=== PATIENT | female | born 1950 | race Caucasian/White ===

== ENCOUNTER 2019-05-02 12:11 | Inpatient (IN) | payer OTHER ==
[2019-05-02] MEDS ORDERED: MAGNE/ALUM HYDROXD 30 ML UCUP ONE (13:00)
[2019-05-02] MEDS ORDERED: LIDOCAINE VISCOUS 2% SOLN 15 ML UDC ONE (13:00)
--- NOTE | 2019-05-02 13:10 | RAD REPORT ---
EXAM DESCRIPTION: RAD - Chest Single View - 05/02/2019 1:02 pm CLINICAL HISTORY: CHEST PAIN Chest pain. COMPARISON: CHEST PA AND LAT 2 VIEW dated 04/20/2015; CHEST PA AND LAT 2 VIEW dated 05/01/2012; CHEST PA AND LAT 2 VIEW dated 01/20/2012; CHEST SINGLE VIEW dated 05/16/2011 FINDINGS: Portable technique limits examination quality. The lungs are grossly clear. The heart is normal in size. No displaced fractures. IMPRESSION: No acute intrathoracic process suspected.
[2019-05-02 13:14] LABS: Absolute Lymphocytes (CBC) 1.3 K/uL (0.7-4.9); Basophils % 0.5 % (0-1.3); Eosinophils % 2.7 % (0-4.4); Hematocrit 40.6 % (36.0-45.0); Lymphocytes % 21.4 % (15.3-44.8); MPV 9.4 fL (7.6-11.3); Monocytes % 7.7 % (3.3-12.3); RBC Red Blood Cell Count 4.57 M/uL (3.86-4.86)
[2019-05-02 13:29] LABS: ALT/SGPT 31 U/L (12-78); AST/SGOT 23 U/L (15-37); Albumin 3.8 g/dL (3.4-5.0); Alkaline Phosphatase 84 U/L (45-117); BUN Blood Urea Nitrogen 18 mg/dL (7-18); Bicarbonate 31 mmol/L (21-32); Bilirubin Direct 0.1 mg/dL (0-0.2); Bilirubin Total 0.4 mg/dL (0.2-1.0); Glucose Level 89 mg/dL (74-106); Lipase 126 U/L (73-393); Magnesium 2.2 mg/dL (1.8-2.4); NT PRO-BNP 53 pg/mL (<125); Potassium 4.1 mmol/L (3.5-5.1); Protein, Total 7.7 g/dL (6.4-8.2); Sodium Level 139 mmol/L (136-145); Troponin (Emerg Dept Use Only) < 0.02 ng/mL (0.0-0.045)
--- NOTE | 2019-05-02 14:08 | ER ---
Nurse's Notes [facility] Name: Dominga Gutierrez Age: 68 yrs Sex: Female : 1950 Arrival Date: 05/02/2019 Time: 12:13 Bed 18 Private MD: Zeus Thomas Diagnosis: Chest pain, unspecified Presentation: 05/02 12:15 Presenting complaint: Patient states: "I'm having some discomfort in my chest all the aj1 way to my back and it feels like someone is sitting on my chest." Reports that she has been having this pain for the past 3 weeks, but it got worse 3 days ago. Transition of care: patient was not received from another setting of care. Onset of symptoms was April 2019. Risk Assessment: Do you want to hurt yourself or someone else? Patient reports no desire to harm self or others. Initial Sepsis Screen: Does the patient meet any 2 criteria? No. Patient's initial sepsis screen is negative. Does the patient have a suspected source of infection? No. Patient's initial sepsis screen is negative. Care prior to arrival: None. 12:15 Method Of Arrival: Ambulatory aj1 12:15 Acuity: NATHAN 3 aj1 Triage Assessment: 12:20 General: Appears in no apparent distress. comfortable, Behavior is calm, cooperative, aj1 appropriate for age. Pain: Complains of pain in chest Pain currently is 6 out of 10 on a pain scale. Quality of pain is described as dull, heavy, pressure, Pain began 3 weeks ago. Neuro: Level of Consciousness is awake, alert, obeys commands. Cardiovascular: Reports chest pain, Patient's skin is warm and dry. Respiratory: Airway is patent Respiratory effort is even, unlabored, Respiratory pattern is regular, symmetrical. Historical: - Allergies: 12:20 Sulfa; aj1 12:20 Tape; aj1 - Home Meds: 12:20 Nexium 22.5 mg Oral cpDR once daily [Active]; magnesium oxide 500 mg Oral tab daily aj1 [Active]; carvedilol 3.125 mg Oral tab 2 times per day [Active]; losartan 50 mg Oral tab once daily [Active]; spironolacton-hydrochlorothiaz 25-25 mg Oral tab once daily [Active]; Claritin Oral once daily [Active]; aspirin 81 mg Oral chew once daily [Active]; meclizine 25 mg Oral tab 1 tab once daily [Active]; melatonin 3 mg Oral tab nightly [Active]; Vitamin D3 2,000 unit Oral tab daily [Active]; sertraline 50 mg oral tab 1 tab once daily [Active]; - PMHx: 12:20 GERD; Hypertension; Retinal detachment August 2015; aj1 - Immunization history:: Flu vaccine is up to date. - Social history:: Smoking status: Patient/guardian denies using tobacco. - Ebola Screening: : Patient denies travel to an Ebola-affected area in the 21 days before illness onset. - Family history:: not pertinent. - Hospitalizations: : No recent hospitalization is reported. Screenin:26 Abuse screen: Denies threats or abuse. Nutritional screening: No deficits noted. em Tuberculosis screening: No symptoms or risk factors identified. Fall Risk None identified. Assessment: 12:45 General: Appears in no apparent distress. comfortable, Behavior is calm, cooperative, em Denies fever. Pain: Complains of pain in chest Pain radiates to back Quality of pain is described as pressure. Pain: Complains of pain in chest Pain radiates to back Pain currently is 7 out of 10 on a pain scale. Quality of pain is described as pressure, Pain began 3 weeks. Neuro: Level of Consciousness is awake, alert, obeys commands, Oriented to person, place, time, situation. Cardiovascular: Reports chest pain, Denies palpitations, shortness of breath, vomiting, Capillary refill < 3 seconds Patient's skin is warm and dry. Rhythm is sinus rhythm. Respiratory: Airway is patent Respiratory effort is even, unlabored, Respiratory pattern is regular, symmetrical. GI: Patient currently denies nausea, vomiting. Derm: Skin is intact, is healthy with good turgor, Skin is pink, warm \\T\\ dry. Musculoskeletal: Capillary refill < 3 seconds, Range of motion: intact in all extremities. 13:00 Reassessment: The previous assessment is accurate, call light remains within reach. ss 13:33 Reassessment: Patient appears in no apparent distress at this time. Patient and/or em family updated on plan of care and expected duration. Pain level reassessed. Patient is alert, oriented x 3, equal unlabored respirations, skin warm/dry/pink. pain unchanged, reports pressure is still there, provider notified. 14:30 Reassessment: Patient appears in no apparent distress at this time. Patient and/or em family updated on plan of care and expected duration. Pain level reassessed. Patient is alert, oriented x 3, equal unlabored respirations, skin warm/dry/pink. 15:45 Reassessment: Patient appears in no apparent distress at this time. Patient and/or em family updated on plan of care and expected duration. Pain level reassessed. Patient is alert, oriented x 3, equal unlabored respirations, skin warm/dry/pink. Vital Signs: 12:20 BP 126 / 68; Pulse 60; Resp 16; Temp 97.7; Pulse Ox 100% on R/A; Weight 93.89 kg (R); aj1 Height 5 ft. 3 in. (160.02 cm) (R); 13:32 BP 122 / 66; Pulse 57; Resp 18; Pulse Ox 96% on R/A; Pain 7/10; em 14:30 BP 118 / 57; Pulse 58; Resp 18; Pulse Ox 99% on R/A; em 15:46 BP 134 / 67; Pulse 55; Resp 16; Pulse Ox 98% on R/A; Pain 6/10; em 12:20 Body Mass Index 36.67 (93.89 kg, 160.02 cm) aj1 ED Course: 12:13 Patient arrived in ED. ag5 12:14 Zeus Thomas DO is Private Physician. ag5 12:17 Triage completed. aj1 12:20 Arm band placed on Patient placed in an exam room. aj1 12:23 Juancho Samson MD is Attending Physician. rn 12:26 Carlos Alberto Hanson LVN is Primary Nurse. em 12:26 Patient has correct armband on for positive identification. Placed in gown. Bed in low em position. Call light in reach. warp changer on. Pulse ox on. NIBP on. 12:26 Patient maintains SpO2 saturation greater than 95% on room air. em 12:55 Initial lab(s) drawn, by me, sent to lab. Inserted saline lock: 22 gauge in right em antecubital area, using aseptic technique. Blood collected. 13:02 X-ray completed. Portable x-ray completed in exam room. kp1 13:03 XRAY Chest (1 view) In Process Unspecified. EDMS 14:07 Meg Jaramillo MD is Hospitalizing Provider. rn 15:55 No provider procedures requiring assistance completed. Patient admitted, IV remains in em place. Administered Medications: 13:00 Drug: GI Cocktail without - (Maalox Suspension 30 ml, Lidocaine Liquid 2 % 15 em ml) Route: PO; 13:33 Follow up: Response: No adverse reaction; Pain is unchanged, physician notified em 14:15 Drug: Aspirin Chewable Tablet 324 mg Route: PO; em 15:47 Follow up: Response: No adverse reaction em Outcome: 14:07 Decision to Hospitalize by Provider. rn 15:55 Admitted to Tele accompanied by tech, family with patient, via wheelchair, room 413, em with chart, Report called to GERMANIA Vargas 15:55 Condition: good 15:55 Instructed on the need for admit, Demonstrated understanding of instructions. 16:09 Patient left the ED. em Signatures: Dispatcher [employer] EDAysha Estes RN RN aj1 Carlos Alberto Hanson, FIRE MANAGEMENT TECHNICIAN FIRE MANAGEMENT TECHNICIAN em Juancho Samson MD MD rn Smirch, Shelby, RN RN ss Poole, Kathy kp1 Kimberly Day ag5 Corrections: (The following items were deleted from the chart) 14:27 13:33 Reassessment: Patient appears in no apparent distress at this time. Patient em and/or family updated on plan of care and expected duration. Pain level reassessed. Patient is alert, oriented x 3, equal unlabored respirations, skin warm/dry/pink. pain unchanged, reports pressure is still there em
--- NOTE | 2019-05-02 14:08 | EDPHYS ---
Physician Documentation [facility] Name: Dominga Gutierrez Age: 68 yrs Sex: Female : 1950 Arrival Date: 05/02/2019 Time: 12:13 Bed 18 Private MD: Zeus Thomas ED Physician Jauncho Samson HPI: 05/02 13:50 This 68 yrs old Female presents to ER via Ambulatory with complaints of Chest rn Pressure, Chest Discomfort. 13:50 The patient or guardian reports chest pain that is located primarily in the substernal rn area. Onset: 3 week(s) ago. The pain radiates to the scapula on both sides. Associated signs and symptoms: The patient has no apparent associated signs or symptoms, Pertinent negatives: cough, diaphoresis, dizziness, lower extremity swelling, lightheadedness, palpitations, shortness of breath, syncope, vomiting. The chest pain is described as dull. Duration: The patient or guardian reports multiple episodes, that are intermittent. Modifying factors: The symptoms are alleviated by nothing. the symptoms are aggravated by nothing. Severity of pain: At its worst the pain was moderate in the emergency department the pain is unchanged. The patient has not experienced similar symptoms in the past. Reports intermittent chest pain for 3 weeks, dull, radiates to shoulder blades, today constant for several hours, not any worse, no fever/chills/cough/sob/abd pain. Reports has been having a lot of acid reflux lately, is doubling her nexium and not helping. Not sure if related to each other. Reports had negative stress test [address] Lewis. NOt worse with exertion or breathing. No recent surgery or hx of dvt/pe.. Historical: - Allergies: 12:20 Sulfa; aj1 12:20 Tape; aj1 - Home Meds: 12:20 Nexium 22.5 mg Oral cpDR once daily [Active]; magnesium oxide 500 mg Oral tab daily aj1 [Active]; carvedilol 3.125 mg Oral tab 2 times per day [Active]; losartan 50 mg Oral tab once daily [Active]; spironolacton-hydrochlorothiaz 25-25 mg Oral tab once daily [Active]; Claritin Oral once daily [Active]; aspirin 81 mg Oral chew once daily [Active]; meclizine 25 mg Oral tab 1 tab once daily [Active]; melatonin 3 mg Oral tab nightly [Active]; Vitamin D3 2,000 unit Oral tab daily [Active]; sertraline 50 mg oral tab 1 tab once daily [Active]; - PMHx: 12:20 GERD; Hypertension; Retinal detachment August 2015; aj1 - Immunization history:: Flu vaccine is up to date. - Social history:: Smoking status: Patient/guardian denies using tobacco. - Ebola Screening: : Patient denies travel to an Ebola-affected area in the 21 days before illness onset. - Family history:: not pertinent. - Hospitalizations: : No recent hospitalization is reported. ROS: 13:50 Constitutional: Negative for fever, chills, and weight loss, Eyes: Negative for injury, rn pain, redness, and discharge, Neck: Negative for injury, pain, and swelling, Cardiovascular: + chest pain Respiratory: Negative for shortness of breath, cough, wheezing, and pleuritic chest pain, Abdomen/GI: Negative for abdominal pain, nausea, vomiting, diarrhea, and constipation, MS/Extremity: Negative for injury and deformity, Skin: Negative for injury, rash, and discoloration, Neuro: Negative for headache, weakness, numbness, tingling, and seizure. Exam: 13:50 Constitutional: This is a well developed, well nourished patient who is awake, alert, rn appears uncomfortable Head/Face: Normocephalic, atraumatic. Eyes: Pupils equal round and reactive to light, extra-ocular motions intact. Lids and lashes normal. Conjunctiva and sclera are non-icteric and not injected. Cornea within normal limits. Periorbital areas with no swelling, redness, or edema. Neck: Trachea midline, no thyromegaly or masses palpated, and no cervical lymphadenopathy. Supple, full range of motion without nuchal rigidity, or vertebral point tenderness. No Meningismus. Cardiovascular: Sheldon cardic, regular, no murmur Respiratory: Lungs have equal breath sounds bilaterally, clear to auscultation. No increased work of breathing, no retractions or nasal flaring. Abdomen/GI: Soft, non-tender, with normal bowel sounds. No distension or tympany. No guarding or rebound. MS/ Extremity: Pulses equal, no cyanosis. Neurovascular intact. Full, normal range of motion. Equal circumference. Neuro: Awake and alert, GCS 15, oriented to person, place, time, and situation. Cranial nerves II-XII grossly intact. Motor strength 5/5 in all extremities. Sensory grossly intact. Cerebellar exam normal. Vital Signs: 12:20 BP 126 / 68; Pulse 60; Resp 16; Temp 97.7; Pulse Ox 100% on R/A; Weight 93.89 kg (R); aj1 Height 5 ft. 3 in. (160.02 cm) (R); 13:32 BP 122 / 66; Pulse 57; Resp 18; Pulse Ox 96% on R/A; Pain 7/10; em 14:30 BP 118 / 57; Pulse 58; Resp 18; Pulse Ox 99% on R/A; em 15:46 BP 134 / 67; Pulse 55; Resp 16; Pulse Ox 98% on R/A; Pain 6/10; em 12:20 Body Mass Index 36.67 (93.89 kg, 160.02 cm) aj1 MDM: 12:23 Patient medically screened. rn 13:50 Differential diagnosis: acute myocardial infarction, acute pericarditis, anxiety, rn coronary artery disease chest wall pain, costochondritis, esophagitis, gastritis, gastroesophageal reflux disease (GERD), pancreatitis, peptic ulcer disease, pericarditis, pleurisy, pneumothorax. The patient was given aspirin in the Emergency Department. 14:02 Data reviewed: vital signs, nurses notes, lab test result(s), EKG, radiologic studies, rn plain films, and as a result, I will admit patient. Test interpretation: by ED physician or midlevel provider: plain radiologic studies, CXR negative for acute finding, no pneumothorax or infiltrate. Counseling: I had a detailed discussion with the patient and/or guardian regarding: the historical points, exam findings, and any diagnostic results supporting the discharge/admit diagnosis, lab results, radiology results. Special discussion:. ED course: Patient very uncomfortable when discussing discharge home. States that she needs to know what is going on, states the GI cocktail did not help and does not believe that this is GERD/esophagitis. No clear etiology of chest pain, and not normal ECG, has bifascicular block with mild wide QRS. Will admit for cardiac rule out and w/u. . 05/02 12:39 Order name: Basic Metabolic Panel; Complete Time: 13:39 rn 06/30 12:39 Order name: CBC with Diff; Complete Time: 13:21 rn 30 12:39 Order name: LFT's; Complete Time: 13:39 rn 05/02 12:39 Order name: Magnesium; Complete Time: 13:39 rn 30 12:39 Order name: NT PRO-BNP; Complete Time: 13:39 rn 30 12:39 Order name: Troponin (emerg Dept Use Only); Complete Time: 13:39 rn 05/02 12:39 Order name: XRAY Chest (1 view); Complete Time: 13:21 rn 05/02 12:39 Order name: EKG; Complete Time: 12:41 rn 05/02 12:39 Order name: Cardiac monitoring; Complete Time: 12:51 rn 05/02 12:39 Order name: EKG - Nurse/Tech; Complete Time: 12:51 rn 05/02 12:39 Order name: IV Saline Lock; Complete Time: 12:51 rn 05/02 12:39 Order name: Lipase; Complete Time: 13:39 rn 05/02 12:39 Order name: Labs collected and sent; Complete Time: 12:52 rn 05/02 12:39 Order name: O2 Per Protocol; Complete Time: 12:52 rn 05/02 12:39 Order name: O2 Sat Monitoring; Complete Time: 12:52 rn Administered Medications: 13:00 Drug: GI Cocktail without - (Maalox Suspension 30 ml, Lidocaine Liquid 2 % 15 em ml) Route: PO; 13:33 Follow up: Response: No adverse reaction; Pain is unchanged, physician notified em 14:15 Drug: Aspirin Chewable Tablet 324 mg Route: PO; em 15:47 Follow up: Response: No adverse reaction em Disposition: 05/02/19 14:07 Hospitalization ordered by Meg Jaramillo for Observation. Preliminary diagnosis is Chest pain, unspecified. - Bed requested for Telemetry/MedSurg (observation). - Status is Observation. em - Condition is Stable. - Problem is an ongoing problem. - Symptoms are unchanged. UTI on Admission? No Signatures: Dispatcher [employer] Aysha Joel RN RN aj1 Carlos Alberto Hanson, CERTIFIED PROCEDURAL CODER CERTIFIED PROCEDURAL CODER em Juancho Samson MD MD rn Tran, Leah lt1 Corrections: (The following items were deleted from the chart) 15:09 14:07 Hospitalization Ordered by Meg Jaramillo MD for Observation. Preliminary diagnosis lt1 is Chest pain, unspecified. Bed requested for Telemetry/MedSurg (observation). Status is Observation. Condition is Stable. Problem is an ongoing problem. Symptoms are unchanged. UTI on Admission? No. rn 16:09 15:09 05/02/2019 14:07 Hospitalization Ordered by Meg Jaramillo MD for Observation. em Preliminary diagnosis is Chest pain, unspecified. Bed requested for Telemetry/MedSurg (observation). Status is Observation. Condition is Stable. Problem is an ongoing problem. Symptoms are unchanged. UTI on Admission? No. lt1
[2019-05-02] MEDS ORDERED: ASPIRIN 81 MG CHEWABLE TABLET ONE (14:32)
[2019-05-02] MEDS ORDERED: MORPHINE 2 MG/ML SYR IV PRN (16:33)
[2019-05-02] MEDS ORDERED: NITROGLYCERIN 0.4 MG/TAB SL PRN (16:33)
[2019-05-02] MEDS ORDERED: ACETAMINOPHEN 500 MG TAB PO PRN (16:33)
[2019-05-02] MEDS: ENOXAPARIN 40 MG/0.4 ML SQ SCH (17:34)
[2019-05-02] MEDS ORDERED: ESOMEPRAZOLE MAG TRIHYDRATE 20 MG PO SCH (21:00)
[2019-05-02] MEDS ORDERED: MELATONIN 3 MG PO SCH (21:00)
[2019-05-02] MEDS ORDERED: CARVEDILOL 6.25 MG TAB PO SCH (21:00)
[2019-05-02] MEDS: CARVEDILOL 3.125 MG TAB PO SCH (21:04)
[2019-05-02] MEDS: ATORVASTATIN 40 MG TAB PO SCH (21:05)
[2019-05-02] MEDS: MELATONIN 3 MG TABLET PO SCH (21:05)
[2019-05-02] MEDS: PANTOPRAZOLE 40MG TABLET PO SCH (21:05)
--- NOTE | 2019-05-03 02:53 | HP ---
Date of Admission: 05/02/2019 Primary Care Physician: Dr. Guevara. Consultants: Dr. Stern with Cardiology. Chief Complaint: Chest pain. History Of Present Illness: The patient is a 68-year-old female with past medical history of hyperte nsion, obesity, major depressive disorder, gastroesophageal reflux disease, who was in her usual stat e of health until 3 weeks prior to admission. The patient has been having intermittent chest pain th at is reported as substernal radiating to the back associated with nausea but no vomiting, mild short ness of breath. No diaphoresis or palpitations. The patient otherwise denies any fevers, chills, co ugh, or sputum production. The patient also reports some gastroesophageal reflux disease symptoms, w hich were worse along the same time and she doubled her Nexium dose. The patient has had progressive ly worsening symptoms over the past couple of days; therefore, came into the ER for further evaluatio n. No alleviating factors. No aggravating factors either. Her initial workup showed normal cardiac enzymes. EKG did not show any acute changes. Chest x-ray was clear. The patient was referred for admission for further workup. When seen in the ER, she was awake, alert, oriented x3, complaining of heaviness in her chest. Past Medical History: Hypertension, obesity, gastroesophageal reflux disease, major depressive disor basilio. Surgical History: Hysterectomy, cholecystectomy, left ankle surgery, and EGD in 2014 which showed ga stritis. The patient also has had colonoscopy with multiple polyps removal. Allergies: TO TETANUS VACCINES AND TOXOID, SULFA, CIPRO, AND MEDIPORE TAPE. Medications: List reviewed. Social History: The patient denies any tobacco use. The patient does drink rarely. No illicit drug use. The patient is , independent in her activities of daily living. Family History: The patient reports heart disease that runs in the uncle. Review of Systems: Ten-point system reviewed and negative except as per HPI. Physical Examination: Vital Signs: Blood pressure 126/68, pulse 60, respirations 16, temperature 97.7, O2 100% on room air . BMI 36.6. General: Awake, alert, oriented x3 elderly, obese female, in some mild distress. HEENT: Normocephalic, atraumatic. PERRLA. EOMI. Moist mucous membranes. Oropharynx is clear. Co njunctivae anicteric. Neck: Supple. No JVD. Trachea midline. CV: S1, S2. Regular rate and rhythm. Peripheral pulses present. Respiratory: Moving air well bilaterally. No wheezing or stridor. No use of accessory muscles. Gastrointestinal: Abdomen is soft, nontender, nondistended. Positive bowel sounds. No guarding or rigidity. Extremities: No clubbing, cyanosis, or edema. No calf tenderness. Neuro: Cranial nerves 2 through 12 intact grossly. No focal neurological deficit. Speech is normal . Strength is 5/5 bilateral upper and lower extremities. Skin: No rashes. Normal skin turgor. Psych: Mood is somewhat anxious. Affect is congruent with mood. Insight and judgment are good. Laboratory Data: WBC 6.1, H and H 13.6 and 40.6, platelets 165, neutrophils 67%. Sodium 139, potass ium 4.1, chloride 103, CO2 31, BUN 18, creatinine 0.73, glucose 89, calcium 9.2, magnesium 2.2. Trop onin less than 0.02. Albumin 3.8. Imaging Studies: Chest x-ray personally reviewed, shows no acute intrathoracic process identified. Assessment And Plan: A 68-year-old female with: 1.Chest pain. We will start on chest pain guidelines. We will obtain echocardiogram, consult Cardi ology. The patient does have a HEART Score of 4. She has hypertension, obesity as well as age over 65. 2.Gastroesophageal reflux disease. We will continue Nexium. Recommend the patient to follow up wit h GI as outpatient. 3.Essential hypertension, stable. We will continue home medications. 4.Obesity. BMI of 38. Counseled. 5.Major depressive disorder, in remission. We will continue SSRI. 6.DVT prophylaxis with Lovenox. Plan: Admit patient to Med-Surg, [facility] as observation. /YEISON Voice ID: [id number]
[2019-05-03 06:13] LABS: Absolute Lymphocytes (CBC) 1.8 K/uL (0.7-4.9); Basophils % 0.5 % (0-1.3); Eosinophils % 3.1 % (0-4.4); Hematocrit 39.8 % (36.0-45.0); Lymphocytes % 34.5 % (15.3-44.8); MPV 9.2 fL (7.6-11.3); Monocytes % 8.8 % (3.3-12.3); RBC Red Blood Cell Count 4.43 M/uL (3.86-4.86)
[2019-05-03 06:20] LABS: BUN Blood Urea Nitrogen 16 mg/dL (7-18); Bicarbonate 32 mmol/L (21-32); Glucose Level 93 mg/dL (74-106); HDL Cholesterol 68 mg/dL (40-60); LDL Cholesterol, Calculated 109 (<130); Potassium 3.7 mmol/L (3.5-5.1); Sodium Level 141 mmol/L (136-145)
--- NOTE | 2019-05-03 06:38 | EKG ---
Test Date: 2019-05-02 Test Time: 12:32:32 Hand Ii Tube Bender: MEASUREMENT RESULTS: Intervals: Rate: 65 MA: 196 QRSD: 150 QT: 468 QTc: 486 [place]: P: 72 MA: 196 QRS: -56 T: 10 INTERPRETIVE STATEMENTS: Sinus rhythm with occasional premature ventricular complexes Right bundle branch block Left anterior fascicular block Bifascicular block Moderate voltage criteria for LVH, may be normal variant Cannot rule out Septal infarct, age undetermined Lateral infarct, age undetermined Abnormal ECG Compared to ECG 09/29/2016 02:52:47 Ventricular premature complex(es) now present Left ventricular hypertrophy now present Bifascicular block still present Myocardial infarct finding still present Electronically Signed On 05-03-19 06:36:29 CDT by Denny Stern
[2019-05-03] MEDS ORDERED: REGADENOSON 0.4 MG/5 ML SYR IV ONE (07:25)
[2019-05-03] MEDS ORDERED: HOME MED 1 EA UNK (Meclizine Hcl [Meclizine Hcl] 25 MG) PO SCH ×2 (09:00)
[2019-05-03] MEDS: CARVEDILOL 3.125 MG TAB PO SCH ×2 (09:00→21:53)
[2019-05-03] MEDS ORDERED: HOME MED 1 EA UNK (Spironolact/Hydrochlorothiazid [Spironolactone-Hctz 25-25 Tab] 1 TAB) PO SCH (09:00)
[2019-05-03] MEDS ORDERED: LOSARTAN POTASSIUM 50 MG TABLET PO SCH (09:00)
[2019-05-03] MEDS: SERTRALINE HCL 50 MG TAB PO SCH (09:40)
[2019-05-03] MEDS: ASPIRIN EC 81 MG TAB PO SCH (09:40)
[2019-05-03] MEDS: PANTOPRAZOLE 40MG TABLET PO SCH ×2 (09:40→16:00)
[2019-05-03] MEDS: MECLIZINE HCL 12.5 MG TAB PO SCH (09:41)
[2019-05-03] MEDS: DOCUSATE NA 100 MG CAP PO SCH (09:41)
[2019-05-03] MEDS: LOSARTAN POTASSIUM 50 MG TABLET PO SCH (09:41)
[2019-05-03] MEDS: SPIRONOLACTONE 25 MG TABLET PO SCH (09:41)
[2019-05-03] MEDS: hydroCHLOROthiazide 25 MG TAB PO SCH (09:42)
[2019-05-03] MEDS: ENOXAPARIN 40 MG/0.4 ML SQ SCH (09:42)
--- NOTE | 2019-05-03 12:22 | ECHO ---
HEIGHT: ft in WEIGHT: lb oz DATE OF STUDY: 05/03/[address]: Meg Jaramillo MD 2-DIMENSIONAL: YES M.MODE: YES DOPPLER: YES COLOR FLOW: YES TDS: PORTABLE: DEFINITY: BUBBLE STUDY: DIAGNOSIS: CHEST PAIN CARDIAC HISTORY: CATHERIZATION: NO SURGERY: NO PROSTHETIC VALVE: NO PACEMAKER: NO MEASUREMENTS (cm) DIASTOLIC (NORMALS) SYSTOLIC (NORMALS) IVSd 0.9 (0.6-1.2) LA Diam 2.8 (1.9-4.0) LVEF 52% LVIDd 4.1 (3.5-5.7) LVIDs 30. (2.0-3.5) %FS 26% LVPWd 1.0 (0.6-1.2) Ao Diam 2.5 (2.0-3.7) 2 DIMENSIONAL ASSESSMENT: RIGHT ATRIUM: NORMAL LEFT ATRIUM: NORMAL RIGHT VENTRICLE: NORMAL LEFT VENTRICLE: NORMAL TRICUSPID VALVE: NORMAL MITRAL VALVE: NORMAL PULMONIC VALVE: NORMAL AORTIC VALVE: NORMAL PERICARDIAL EFFUSION: NONE AORTIC ROOT: NORMAL LEFT VENTRICULAR WALL MOTION: NORMAL DOPPLER/COLOR FLOW: NORMAL COMMENTS: NORMAL 2-DIMENSIONAL ECHOCARDIOGRAM WITH DOPPLER. NO WALL MOTION ABNORMALITY. NO EFFUSION. TECHNOLOGIST: JOSÉ LUIS IVORY
--- NOTE | 2019-05-03 12:45 | RAD REPORT ---
EXAM DESCRIPTION: NM - Rest Stress Cardiac Imaging - 05/03/2019 12:37 pm CLINICAL HISTORY: Chest pain COMPARISON: None. TECHNIQUE: The patient was administered 10.7 mCi of Tc 99m Sestamibi prior to resting SPECT imaging of the heart. The patient was then administered 30.8 mCi of Tc 99m Sestamibi following exercise or ph armacologic stress. Multiplanar SPECT images were reviewed. FINDINGS: The end diastolic volume is 90 ml, the end systolic volume is 32 ml, and the ejection frac tion is 64 %. Stress imaging shows diminished activity in the anteroseptal wall near the apex not present on the re st sequencing. Moderate area diminished activity along the inferolateral wall near the apex does not change between rest and stress imaging. This is most likely diaphragm attenuation artifact. IMPRESSION: Small focus of stress ischemia anteroseptal wall near the apex. Fixed defect inferolateral wall is believed to be attenuation artifact from the diaphragm. Ejection fraction and end-diastolic volume normal range.
--- NOTE | 2019-05-03 15:54 | PN ---
Date of Progress Note: 05/03/2019 Subjective: The patient is seen and examined, chart reviewed, and case discussed with RN and Dr. Stern. The patient still has some pain, however, states it is improving. No shortness of breath. The patient tolerated stress test well. Medications: List reviewed. Objective: Vital Signs: Blood pressure 121/53, respirations 18, heart rate 57 , temperature 97.3, O2 95% on room air. General: Awake, alert, oriented x3, not in any acute distress. CV: S1, S2. Regular rate and rhythm. Peripheral pulses present. Respiratory: Moving air well bilaterally. No wheezing. Gastrointestinal: Abdomen is soft, nontender, nondistended. Positive bowel sounds. Extremities: No clubbing, cyanosis, or edema. Neurologic: Nonfocal. Laboratory Data: Sodium 141, potassium 3.7, chloride 105, CO2 32, BUN 16, creatinine 0.63, glucose 93, calcium 9.2, triglycerides 76, cholesterol 192, LDL 109, HDL 68. WBC 5.1, H and H 13.1 and 39.8, platelets 148, neutrophils 53% . Echocardiogram shows EF of 52%. Cardiac stress test shows small focus of stress ischemia, anteroseptal wall near the apex, fixed defect in inferior lateral wall believed to be attenuation artifact from the diaphragm. Assessment And Plan: A 68-year-old female with: 1. Chest pain. Stress test is positive. Does show some stress-induced ischemia near the apex. Cardiac enzymes were negative. Still having some chest discomfort. We will discuss further with Dr. Stern. The patient will likely need heart catheterization. 2. Gastroesophageal reflux disease. We will continue PPI. 3. Essential hypertension stable. 4. Obesity, BMI of 38. 5. Major depressive disorder, in remission. We will continue SSRI. 6. Bifasicular block 7. Deep vein thrombosis prophylaxis with Lovenox. Plan: Anticipate heart catheterization in a.m. /YEISON Voice ID: [id number] Report ID: [id number] DORINA
[2019-05-03 16:40] LABS: Urine Appearance CLEAR; Urine Bilirubin NEGATIVE (NEG); Urine Blood NEGATIVE (NEG); Urine Color YELLOW; Urine Glucose NEGATIVE (NEG); Urine Protein NEGATIVE (NEG); Urine Specific Gravity <=1.005 (1.005-1.030); Urine Urobilinogen 0.2 mg/dL (0.2-1.0); Urine pH 6.5 (5.0-7.0)
[2019-05-03 16:41] LABS: Urine Microscopic Reflex NO UMIC
[2019-05-03] MEDS: ATORVASTATIN 40 MG TAB PO SCH (21:49)
[2019-05-03] MEDS: MELATONIN 3 MG TABLET PO SCH (21:50)
--- NOTE | 2019-05-04 08:17 | TREADPHA ---
DX: CHEST PAIN Date of Study: 05/03/2019 Ht: 5 3 Wt: 207 lb oz Consulting Physician: ANDRA MEDICATIONS: TYLENOL, ASPIRIN, LIPITOR, LOVENOX, HYPDRODIURIL, COZAAR, ANTIVERT, MORPHINE, NITROSTAT, PROTONIX HISTORY: 68 YEAR OLD FEMALE WITH COMPLAINTS OF CHEST PAIN. HISTORY OF GERD, HYPERTENSION, RETINAL, DETACHMENT, NON SMOKER, NON DRINKER. PHYSICIAL EXAMINATION: RESTING B.P.: 134/65 RESTING H.R.: 61 RESTING EKG: SINUS RYHTHM, LEFT ANTERIOR FISCULAR BLOCK, RIGHT BUNDLE BRANCH BLOCK PROTOCOL: LEXISCAN EXERCISE TIME: 3:30 B.P. AT PEAK STRESS: 107/51 IMPRESSION: LEXISCAN INJECTED, FOLLOWED BY CARDIOLITE PER PROTOCOL. SEE NUCLEAR MEDICINE REPORT. NO SUPRAVENTRICULAR TACHYCARDIA, VENTRICULAR TACHYCARDIA, PREMATURE VENTRICULAR COMPLEXES OR PREMATURE ATRIAL COMPLEXES. PATIENT REPORTS NO CHEST PAIN.
[2019-05-04] MEDS: PANTOPRAZOLE 40MG TABLET PO SCH ×2 (08:32→16:33)
[2019-05-04] MEDS: MECLIZINE HCL 12.5 MG TAB PO SCH (08:33)
[2019-05-04] MEDS: SPIRONOLACTONE 25 MG TABLET PO SCH (08:33)
[2019-05-04] MEDS: ASPIRIN EC 81 MG TAB PO SCH (08:33)
[2019-05-04] MEDS: SERTRALINE HCL 50 MG TAB PO SCH (08:33)
[2019-05-04] MEDS: DOCUSATE NA 100 MG CAP PO SCH (08:34)
[2019-05-04] MEDS: LOSARTAN POTASSIUM 50 MG TABLET PO SCH (08:34)
[2019-05-04] MEDS: CARVEDILOL 3.125 MG TAB PO SCH ×2 (08:34→21:18)
[2019-05-04] MEDS: hydroCHLOROthiazide 25 MG TAB PO SCH (08:34)
[2019-05-04] MEDS ORDERED: MIDAZOLAM HCL 2 MG/2 ML INJ ONE ×3 (10:11→14:11)
[2019-05-04] MEDS ORDERED: FENTANYL CITR 100 MCG/2 ML ONE (13:32)
[2019-05-04] MEDS ORDERED: NA CHLORIDE 0.9% 500 ML ONE (13:32)
[2019-05-04] MEDS ORDERED: ATROPINE SULF 1 MG/10 ML SYR IV ONE (13:33)
[2019-05-04] MEDS ORDERED: NA CHLORIDE 0.9% 0 ML ONE (13:33)
--- NOTE | 2019-05-04 17:08 | P.PN ---
Subjective Date of Service: 05/04/19 Patient seen and examined at bedside. at bedside. Chart reviewed and case discussed with nursing staff. Continues to complain of chest discomfort Review of Systems 10-point ROS is otherwise unremarkable Physical Examination - Vital Signs Temperature: 97.8 F Blood Pressure: 101/57 Pulse: 62 Respirations: 16 Pulse Ox (%): 96 - Physical Exam General: Alert, In no apparent distress, Oriented x3 HEENT: Atraumatic, PERRLA, EOMI Neck: Supple, JVD not distended Respiratory: Clear to auscultation bilaterally, Normal air movement Cardiovascular: Regular rate/rhythm, Normal S1 S2 Gastrointestinal: Normal bowel sounds, No tenderness Musculoskeletal: No tenderness Integumentary: No rashes Neurological: Normal speech, Normal tone, Normal affect Lymphatics: No axilla or inguinal lymphadenopathy Assessment And Plan - Plan A 68-year-old female with: 1. Chest pain. Stress test is positive. Does show some stress-induced ischemia near the apex. Cardiac enzymes were negative. Still having some chest discomfort. Cardiology consulted.. Pending heart catheterization. 2. Gastroesophageal reflux disease. We will continue PPI. 3. Essential hypertension stable. 4. Obesity, BMI of 38. 5. Major depressive disorder, in remission. We will continue SSRI. 6. Bifasicular block 7. Deep vein thrombosis prophylaxis with Lovenox. Plan: Pending heart catheterization in a.m.
[2019-05-04] MEDS ORDERED: ACETAMINOPHEN 325 MG TABLET PO PRN (18:38)
[2019-05-04] MEDS ORDERED: NITROGLYCERIN 0.4 MG/TAB SL PRN (18:42)
--- NOTE | 2019-05-04 20:49 | OP ---
Date of Procedure: 05/04/2019 Surgeon: Denny Stern MD Parts Salesman: Clover Philip. Ms. Gutierrez was admitted to Dr. Jaramillo on 05/03/2019 with chest pain. Had a positive stress test and was scheduled for a heart catheterization today as an inpatient. She was brought to the filling station laborer on 05/04/2019, approximately at 1 p.m. She had 4 mg of Versed for IV sedation along with some fentanyl. 6-Urdu sheath introduced in the right common femoral artery fernandez ccessfully. Angio-Seal was used to close the case. Capri catheter was used to do the diagnostic c atheterization. She was found to have normal coronaries without any plaque buildup. There were no c omplications. Blood Loss: 5 cc. Anesthesia: Total conscious sedation was 30 minutes. Postoperative Diagnosis: Chest pain, positive stress test, normal coronaries. Plan: Plan is for medical therapy. The patient can be discharged today once it is okay with Dr. Bell sahu. CALISTA/YEISON Voice ID: [id number] Report ID: [id number]
[2019-05-04] MEDS: ATORVASTATIN 40 MG TAB PO SCH (21:19)
[2019-05-04] MEDS: MELATONIN 3 MG TABLET PO SCH (21:19)
--- NOTE | 2019-05-05 01:38 | CON ---
Date of Consultation: 05/03/[address] Jaramillo's service on 05/02/2019. I saw the patient on 05/03/2019. Reason For Consultation: Chest pain. History Of Present Illness: Ms. Gutierrez is 68. She has history of hypertension, retinal detachment, an d gastroesophageal reflux disease, came in with substernal chest pressure. No radiation, constant sy mptoms for about 48 hours. No nausea, vomiting. She did have some diaphoresis and shortness of john th. Denied PND, orthopnea, pedal edema, palpitations, or syncope. EKG showed bifascicular block. C hest x-ray was negative. Troponin was negative. Allergies: INCLUDE SULFA AND TETANUS. Review of Systems: Negative. Social History: Negative. Family History: Positive for heart disease. Medications: At home include Nexium, aspirin Coreg, Cozaar, Zoloft, and she takes Aldactone with hyd rochlorothiazide. Physical Examination: Vital Signs: Stable, was afebrile. HEENT: Negative. Neck: Supple without any lymphadenopathy, JVD, thyromegaly, or bruit. Chest: Clear to auscultation and percussion. Cardiac: Revealed a regular rhythm and rate without any murmurs, gallops, or rubs. Abdomen: Benign. Extremities: Revealed no clubbing, cyanosis, or edema. Diagnostic Data: Stated earlier. Impression And Plan: This is a patient who is 68, has history of hypertension, family history of hea rt disease, abnormal EKG, chest pain. I agree with the plan to get an echocardiogram and a Lexiscan, and we will see what those shows prior to final decisions. Her blood pressure is fairly well contro lled. We will continue her present regimen for now. The case was discussed with Dr. Jaramillo. CALISTA/YEISON Voice ID: [id number] Report ID: [id number]
[2019-05-05] MEDS: hydroCHLOROthiazide 25 MG TAB PO SCH (09:25)
[2019-05-05] MEDS: ASPIRIN EC 81 MG TAB PO SCH (09:25)
[2019-05-05] MEDS: SERTRALINE HCL 50 MG TAB PO SCH (09:25)
[2019-05-05] MEDS: SPIRONOLACTONE 25 MG TABLET PO SCH (09:25)
[2019-05-05] MEDS: DOCUSATE NA 100 MG CAP PO SCH (09:26)
[2019-05-05] MEDS: MECLIZINE HCL 12.5 MG TAB PO SCH (09:26)
[2019-05-05] MEDS: LOSARTAN POTASSIUM 50 MG TABLET PO SCH (09:26)
[2019-05-05] MEDS: CARVEDILOL 3.125 MG TAB PO SCH (09:26)
[2019-05-05] MEDS: PANTOPRAZOLE 40MG TABLET PO SCH (09:26)
--- NOTE | 2019-05-05 11:48 | P.DS ---
Admission Date: 05/03/19 Discharge Date: 05/05/19 Disposition: ROUTINE DISCHARGE Discharge Condition: GOOD Reason for Admission: Chest pain Consultations: Cardiology Procedures: 05/04/2019: Cardiac catheterization, no stent placement required. Brief History of Present Illness: The patient is a 68-year-old female with past medical history of hypertension, obesity, major depressive disorder, gastroesophageal reflux disease, who was in her usual state of health until 3 weeks prior to admission. The patient has been having intermittent chest pain that is reported as substernal radiating to the back associated with nausea but no vomiting, mild shortness of breath. No diaphoresis or palpitations. The patient otherwise denies any fevers, chills, cough, or sputum production. The patient also reports some gastroesophageal reflux disease symptoms, which were worse along the same time and she doubled her Nexium dose. The patient has had progressively worsening symptoms over the past couple of days; therefore, came into the ER for further evaluation. No alleviating factors. No aggravating factors either. Her initial workup showed normal cardiac enzymes. EKG did not show any acute changes. Chest x-ray was clear. The patient was referred for admission for further workup. When seen in the ER, she was awake, alert, oriented x3, complaining of heaviness in her chest. Hospital Course: Patient was admitted for chest pain. She was started on chest pain guidelines. Echocardiogram was obtained, Cardiology was consulted. Her HEART score was 4. The stress test was done, which was positive with stress-induced ischemia near the apex. She continued to have chest discomfort. She underwent a via catheterization, requiring no PCI /stent placement. She was started on a PPI for her gastroesophageal reflux disease. Her chest pain in symptoms improved/resolved. She was then cleared for discharge by cardiology. She otherwise remained stable throughout the stay. Her diagnoses and treatment plan explained to her. Lifestyle modifications were discussed with her. All questions were answered, she verbalized understanding. She was then discharged home a safe and stable manner. Just to follow up with her primary care physician in 2-3 days and a director of development and marketing in 2 weeks. She is already on a beta-toribio, aspirin and Plavix. Prescription for statin was sent prior to discharge. Vital Signs/Physical Exam: Temp Pulse Resp BP Pulse Ox 96.9 F 94 H 17 129/64 94 05/05/19 08:00 05/05/19 09:26 05/05/19 08:00 05/05/19 09:26 05/05/19 08:00 General: Alert, In no apparent distress, Oriented x3 HEENT: Atraumatic, PERRLA, EOMI Neck: Supple, JVD not distended Respiratory: Clear to auscultation bilaterally, Normal air movement Cardiovascular: Regular rate/rhythm, Normal S1 S2 Gastrointestinal: Normal bowel sounds, No tenderness Musculoskeletal: No tenderness Integumentary: No rashes Neurological: Normal speech, Normal tone, Normal affect Lymphatics: No axilla or inguinal lymphadenopathy Laboratory Data at Discharge: WBC 5.1 K/uL (4.3-10.9) D 05/03/19 05:30 Hgb 13.1 g/dL (12.0-15.0) 05/03/19 05:30 Hct 39.8 % (36.0-45.0) 05/03/19 05:30 Plt Count 148 K/uL (152-406) L 05/03/19 05:30 Sodium 141 mmol/L (136-145) 05/03/19 05:30 Potassium 3.7 mmol/L (3.5-5.1) 05/03/19 05:30 BUN 16 mg/dL (7-18) 05/03/19 05:30 Creatinine 0.63 mg/dL (0.55-1.3) 05/03/19 05:30 Glucose 93 mg/dL (74-106) 05/03/19 05:30 Magnesium 2.2 mg/dL (1.8-2.4) 05/02/19 12:55 Total Bilirubin 0.4 mg/dL (0.2-1.0) 05/02/19 12:55 AST 23 U/L (15-37) 05/02/19 12:55 ALT 31 U/L (12-78) 05/02/19 12:55 Alkaline Phosphatase 84 U/L (45-117) 05/02/19 12:55 Troponin I < 0.02 ng/mL (0.0-0.045) 05/03/19 05:30 Triglycerides 76 mg/dL (<150) 05/03/19 05:30 Cholesterol 192 mg/dL (<200) 05/03/19 05:30 HDL Cholesterol 68 mg/dL (40-60) H 05/03/19 05:30 Cholesterol/HDL Ratio 2.82 05/03/19 05:30 Lipase 126 U/L (73-393) 05/02/19 12:55 Home Medications: Aspirin [Mark Chewable Aspirin] 81 mg PO DAILY 05/02/19 Carvedilol [Coreg*] 3.125 mg PO BID 05/02/19 Cholecalciferol (Vitamin D3) [Vitamin D3] 2,000 unit PO DAILY 05/02/19 Docusate [Colace Cap*] 100 mg PO DAILY 05/02/19 Esomeprazole Mag Trihydrate [Nexium] 20 mg PO BID 05/02/19 Losartan Potassium [Cozaar*] 50 mg PO DAILY 05/02/19 Meclizine HCl 25 mg PO DAILY 05/02/19 Melatonin 3 mg PO BEDTIME 05/02/19 Sertraline [Zoloft*] 50 mg PO DAILY 05/02/19 Spironolact/Hydrochlorothiazid [Spironolactone-Hctz 25-25 Tab] 1 tab PO DAILY Atorvastatin Calcium [Lipitor] 40 mg PO BEDTIME #30 tab 05/05/19 Nitroglycerin [Nitrostat*] 0.4 mg SL UD PRN #10 tab 05/05/19 New Medications: RX: Atorvastatin Calcium [Lipitor] 40 mg PO BEDTIME #30 tab RX: Nitroglycerin [Nitrostat*] 0.4 mg SL UD PRN #10 tab PRN Reason: Pain Scale 2-4 (Mild) Patient Discharge Instructions: Please follow up with your primary care physician in 2-3 days. Please follow up with cardiology in 2 weeks. return to the Emergency room for worsening symptoms. Diet: AHA Activity: Ad kodi Followup: Denny Stern MD [ACTIVE - CAN ADMIT] - (call to schedule appointment) Zeus Thomas DO [Primary Care Provider] - (call to schedule appointment) Time spent managing pt's care (in minutes): 45
[2019-05-05 15:30] VITALS: BP 123/60; TEMP 97.6; O2SAT 97; BMI 36.6
== END 2019-05-05 12:32 | disposition home or self-care (01) | DRG 287 ==
LOC: ER 12:11 → ERHOLD 14:59 → 4TH 15:55 → OBSVTOIN 05-03 15:07
PROVIDERS: ADMIT Family Medicine; ATTEND Family Medicine
PROC: 4A023N7 Measurement of Cardiac Sampling and Pressure, Left Heart, Percutaneous Approach (ICD-10-PCS; principal; 2019-05-04)
PROC: B2111ZZ Fluoroscopy of Multiple Coronary Arteries using Low Osmolar Contrast (ICD-10-PCS; 2019-05-04)
DX: R07.9 Chest pain, unspecified (principal); I45.2 Bifascicular block; I10 Essential (primary) hypertension; E66.9 Obesity, unspecified; F32.5 Major depressive disorder, single episode, in full remission; K21.9 Gastro-esophageal reflux disease without esophagitis; Z68.36 Body mass index [BMI] 36.0-36.9, adult; Z88.1 Allergy status to other antibiotic agents; Z88.2 Allergy status to sulfonamides; Z88.7 Allergy status to serum and vaccine
CPT/HCPCS: 36415; 71045; 78452; 80048; 80061; 80076; 81003; 83690; 83735; 83880; 84484; 85025; 93005; 93017; 93306; 93454; 94760; 99285; A9500; C1760; C1893; G0378; J0583; J1650; J2250; J2270; J2785; J3010

== ENCOUNTER 2022-07-11 22:56 | Observation (INO) | payer OTHER ==
--- OUTSIDE RECORDS SUMMARY | 2022-07-11 22:59 | XMS REPORT | Continuity of Care Document ---
:1950 Author Organization [facility] t Address [address] [place] [address] Care Team Providers Name Role Phone MORRO CANDELARIA Primary Care Physician Unavailable Therapy, Adc Covid Infusion Attending Clinician Unavailable David Reaves MD Attending Clinician DAVID REAVES Attending Clinician Unavailable Ne Irving DO Attending Clinician Payers Payer Name Policy Type Policy Number Effective Date Expiration Date S ource Problems Condition Condition Condition Status Onset Resolution Last Treating Co mments Source Name Details Category Date Date Treatment Clinician Date No known No known Disease Unive rs active active ity of problems problems [facility] Allergies, Adverse Reactions, Alerts Allergy Allergy Status Severity Reaction(s) Onset Inactive Treating Comm ents Source Name Type Date Date Clinician NO KNOWN Drug Active Univers ALLERGIE Class ity of S [facility] Social History Social Habit Start Date Stop Date Quantity Comments Source Exposure to Yes [facility] SARS-CoV-2 (event) Medica l Branch Sex Assigned At [birth year] [facility] 00:00:00 00:00:00 [facility] Smoking Status Start Date Stop Date Source Unknown if ever smoked [facility] Medications Ordered Filled Start Stop Current Ordering Indication Dosage Frequency Signature Comments Components Source Medication Medication Date Date Medication? Clinician (SIG) Name Name casirivimab 2020-11- No [id number] 1200mg 1,200 mg, Univers -imdevimab 2-15 12-14 Subcutaneo it y of (REGEN-COV 00:00: 22:55 [place], ONCE, [place]EUA[place] 00 :00 1 dose, On Medical injection Tue Branch 1,200 mg 10/16/21 at 1800, Routine ondansetron 2020-11 4mg 4 mg, Univ ers (ZOFRAN-ODT 2-14 12-14 Oral, ity of ) 20:00: 19:02 ONCE, 1 [place] disintegrat 00 :00 dose, On Medi eddie ing tablet Tue Branch 4 mg 10/16/21 at 1400, Routine albuterol 2020-11 Yes [id number] 2{puff} Inhale 2 Univers 90 2-14 Puffs ity of mcg/actuati 00:00: every 4 [place] as on inhaler 00 (four) Medical hours as Branch needed for Wheezing or Shortness of Breath. benzonatate 2020-11 Yes [id number] 100mg Take 1 Univers 100 mg 2-14 capsule by ity of capsule 00:00: mouth 3 [place] 00 (three) Medical times Branch daily as needed for Cough. bromphenira 2020-11 Yes [id number] 5mL Take 5 mL Univers mine-pseudo 2-14 by mouth 4 it y of ephedrine-D 00:00: (four[place] (BROMFED 00 times Medical DM) 2-30-10 daily as Bran ch mg/5 mL needed for syrup Cold symptoms. ondansetron 2020-11 Yes [id number] 4mg Take 1 Univers (ZOFRAN 2-14 tablet by ity of ODT) 4 mg 00:00: mouth [place] disintegrat 00 every 8 Medic al ing tablet (eight) Branch hours as needed for Nausea and Vomiting (N/V). albuterol 2020-11 Yes [id number] 2{puff} Inhale 2 Univers 90 2-14 Puffs ity of mcg/actuati 00:00: every 4 [place] as on inhaler 00 (four) Medical hours as Branch needed for Wheezing or Shortness of Breath. benzonatate 2020-11 Yes [id number] 100mg Take 1 Univers 100 mg 2-14 capsule by ity of capsule 00:00: mouth 3 [place] 00 (three) Medical times Branch daily as needed for Cough. bromphenira 2020-11 Yes [id number] 5mL Take 5 mL Univers mine-pseudo 2-14 by mouth 4 it y of ephedrine-D 00:00: (four[place] (BROMFED 00 times Medical DM) 2-30-10 daily as Bran ch mg/5 mL needed for syrup Cold symptoms. ondansetron 2020-11 Yes [id number] 4mg Take 1 Univers (ZOFRAN 2-14 tablet by ity of ODT) 4 mg 00:00: mouth [place] disintegrat 00 every 8 Medic al ing tablet (eight) Branch hours as needed for Nausea and Vomiting (N/V). Vital Signs Vital Name Observation Time Observation Value Comments Source Systolic blood 2021-10-16 23:40:00 139 mm[Hg] Univer sity [facility] Diastolic blood 2021-10-16 23:40:00 69 [facility]Hg[facility] rate 2021-10-16 23:40:00 90 /min [facility] Body temperature 2021-10-16 23:40:00 36.72 [facility]isa [facility] Respiratory rate 2021-10-16 23:40:00 20 /min [facility] Oxygen saturation in 2021-10-16 23:40:00 94 /min [facility] Arterial blood by [facility] Pulse oximetry [place] Body height 2021-10-16 22:50:00 154.9 cm [facility] Body weight 2021-10-16 22:50:00 112.492 kg [facility] BMI 2021-10-16 22:50:00 46.86 kg/m2 [facility] Systolic blood 2021-10-16 17:09:00 150 mm[facility]Hg[facility] 2021-10-16 17:09:00 87 mm[Hg] [facility] Heart rate 2021-10-16 17:09:00 79 /min [facility] Body temperature 2021-10-16 17:09:00 36.94 [facility]ulisa [facility] Respiratory rate 2021-10-16 17:09:00 19 /min [facility] Body height 2021-10-16 17:09:00 154.9 cm [facility] Body weight 2021-10-16 17:09:00 112.492 kg [facility] BMI 2021-10-16 17:09:00 46.86 kg/m2 [facility] Oxygen saturation in 2021-10-16 17:09:00 95 /min [facility] Arterial blood by [facility] Pulse oximetry Branch Procedures This patient has no known procedures. Encounters Start End Encounter Admission Attending Care Care Encounter Source Date/Time Date/Time Type Type Clinicians Facility Department ID 2021-10-16 2021-10-16 Nurse Therapy, Adc Covid Infusion [facility] [id number] Univers 16:25:14 17:25:14 Visit David Reaves [id number] ity [facility] [id number] [facility] [id number] [facility] 053 Branch 2021-10-16 2021-10-16 Outpatient Roberto REAVES [facility] [id number] Univers 16:00:00 16:00:00 DAVID [facility] 2021-10-16 2021-10-16 Outpatient Roberto REAVES [facility] ERT [id number] Univers 16:00:00 16:00:00 DAVID [facility] 2021-10-16 2021-10-16 Emergency [facility] [id number] Univers 11:10:00 13:35:00 Ne MENDOSA [id number] ity [facility] [id number] [id number] [facility] 084 Branch Results This patient has no known results.
[2022-07-11 23:39] LABS: Absolute Lymphocytes (CBC) 1.8 K/uL (0.7-4.9); Hematocrit 37.9 % (36.0-45.0); Lymphocytes % 24.9 % (15.3-44.8); MCV 86.1 fL (80-100); MPV 8.6 fL (7.6-11.3); RBC Red Blood Cell Count 4.41 M/uL (3.86-4.86)
[2022-07-12 00:03] LABS: Potassium 3.8 mmol/L (3.5-5.1)
--- NOTE | 2022-07-12 00:35 | ER ---
Nurse's Notes [facility] Name: Dominga Gutierrez Age: 71 yrs Sex: Female : 1950 Arrival Date: 07/11/2022 Time: 22:59 Bed 15 Private MD: Diagnosis: Chest pain, unspecified Presentation: 07/11 23:17 Chief complaint: Patient states: she was sitting at home and felt like her blood bb pressure was getting higher 157/84 she took her carvedilol about 40 minutes ago to see if it would go down but it didn't and her arms are tingling. Coronavirus screen: At this time, the client does not indicate any symptoms associated with coronavirus-19. Ebola Screen: No symptoms or risks identified at this time. Initial Sepsis Screen: Does the patient meet any 2 criteria? No. Patient's initial sepsis screen is negative. Does the patient have a suspected source of infection? No. Patient's initial sepsis screen is negative. Risk Assessment: Do you want to hurt yourself or someone else? Patient reports no desire to harm self or others. Onset of symptoms was July 11, 2022. 23:17 Method Of Arrival: Ambulatory bb 23:17 Acuity: NATHAN 2 bb Historical: - Allergies: 23:20 Sulfa; bb 23:20 Tape; bb - Home Meds: 23:20 aspirin 81 mg Oral chew once daily [Active]; carvedilol 3.125 mg Oral tab 2 times per bb day [Active]; spironolacton-hydrochlorothiaz 25-25 mg Oral tab once daily [Active]; meclizine 25 mg Oral tab 1 tab once daily [Active]; Vitamin D3 2,000 unit Oral tab daily [Active]; Nexium 22.5 mg Oral cpDR once daily [Active]; Colace oral [Active]; melatonin 3 mg Oral tab nightly [Active]; AREDS [Active]; turmeric oral [Active]; sertraline 50 mg Oral tab 1 tab once daily [Active]; Xyzal oral [Active]; Vitamin C [Active]; - PMHx: 23:20 GERD; Hypertension; Retinal detachment August 2015; bb - Immunization history:: Client reports having NOT received the Covid vaccine. - Social history:: Smoking status: Patient denies any tobacco usage or history of. Screenin:51 Abuse screen: Denies threats or abuse. Nutritional screening: No deficits noted. ja4 Tuberculosis screening: No symptoms or risk factors identified. Fall Risk. Assessment: 23:48 General: Appears in no apparent distress. comfortable, Behavior is calm, cooperative, ld1 appropriate for age. Pain: Denies pain. Neuro: Level of Consciousness is awake, alert, obeys commands, Oriented to person, place, time, situation. Cardiovascular: Capillary refill < 3 seconds Patient's skin is warm and dry. Rhythm is sinus rhythm. Respiratory: Airway is patent Respiratory effort is even, unlabored. GI: Abdomen is round non-distended. : No signs and/or symptoms were reported regarding the genitourinary system. EENT: No signs and/or symptoms were reported regarding the EENT system. Derm: Reports tingling, in ALAN arms. Musculoskeletal: No signs and/or symptoms reported regarding the musculoskeletal system. 23:51 General: Appears in no apparent distress. Neuro: No deficits noted. Cardiovascular: ja4 Reports chest pain, TINGLING IN BOTH ARMS. Vital Signs: 23:17 BP 170 / 75; Pulse 70; Resp 16 S; Temp 98.5(O); Pulse Ox 98% on R/A; Weight 115.67 kg bb (R); Height 5 ft. 1 in. (154.94 cm) (R); Pain 5/10; 23:48 BP 135 / 51; Pulse 72; Resp 15; Pulse Ox 100% on R/A; ld1 07/12 01:20 BP 132 / 63; Pulse 72; Resp 13; Pulse Ox 96% on R/A; ja4 02:59 BP 139 / 63; Pulse 69; Resp 18; Pulse Ox 95% on R/A; ja4 07/11 23:17 Body Mass Index 48.18 (115.67 kg, 154.94 cm) bb ED Course: 07/11 22:59 Patient arrived in ED. bp1 23:06 Juancho Samson MD is Attending Physician. rn 23:17 [facility]C [facility] kb 23:20 Triage completed. bb 23:20 Arm band placed on Patient placed in an exam room, on a stretcher, on manager of tax, bb on pulse oximetry. Family accompanied patient. 23:32 Inserted saline lock: 20 gauge in left antecubital area, using aseptic technique. Blood ld1 collected. 23:34 Maurice Andrade, RN is Primary Nurse. [facility] 23:44 XRAY Chest (1 view) In Process Unspecified. EDRI 23:51 Call light in reach. Side rails up X 1. Side rails up X2. Adult w/ patient. ja 23:51 No provider procedures requiring assistance completed. [facility] 07/12 00:34 Jolie Moody MD is Hospitalizing Provider. kb 02:59 Report given to marjorie boyer. ja Administered Medications: No medications were administered Medication: 07/11 23:51 VIS not applicable for this client. [facility] Outcome: 07/12 00:35 Decision to Hospitalize by Provider. kb 01:20 Admitted to [facility] 03:53 Patient left the ED. [facility] Signatures: Dispatcher [employer] EDRI Roseline Marks, HARRY-C COMPLIANCE CONSULTANT-CkBonita Page RN RN Juancho Mc MD MD rn Paniauga, Brittany bp1 Dibbern, Lauren, RN RN ld1 Maurice Andrade, RN RN noemi
--- NOTE | 2022-07-12 00:35 | EDPHYS ---
Physician Documentation [facility] Name: Dominga Gutierrez Age: 71 yrs Sex: Female : 1950 Arrival Date: 07/11/2022 Time: 22:59 Bed 15 Private MD: ED Physician Juancho Samson HPI: 07/11 23:50 This 71 yrs old Female presents to ER via Ambulatory with complaints of Blood Pressure kb Problem, Tingling of arms. 23:50 The patient has elevated blood pressure and discovered this at home. Onset: The kb symptoms/episode began/occurred today, at 21:00. Associated signs and symptoms: Pertinent positives: chest pain, Pertinent negatives: dizziness, dyspnea, headache, lightheadedness, nausea, visual changes, vomiting, weakness. Severity of symptoms: At its worst the blood pressure was moderate. The patient has experienced similar episodes in the past. The patient has not recently seen a physician. Pt reports she was sitting down watching tv when she felt her blood pressure go up. States it kept going up so she took her night bp meds, but it didn't bring it down. States she was having some chest pressure as well so she came in.. Historical: - Allergies: 23:20 Sulfa; bb 23:20 Tape; bb - Home Meds: 23:20 aspirin 81 mg Oral chew once daily [Active]; carvedilol 3.125 mg Oral tab 2 times per bb day [Active]; spironolacton-hydrochlorothiaz 25-25 mg Oral tab once daily [Active]; meclizine 25 mg Oral tab 1 tab once daily [Active]; Vitamin D3 2,000 unit Oral tab daily [Active]; Nexium 22.5 mg Oral cpDR once daily [Active]; Colace oral [Active]; melatonin 3 mg Oral tab nightly [Active]; AREDS [Active]; turmeric oral [Active]; sertraline 50 mg Oral tab 1 tab once daily [Active]; Xyzal oral [Active]; Vitamin C [Active]; - PMHx: 23:20 GERD; Hypertension; Retinal detachment August 2015; bb - Immunization history:: Client reports having NOT received the Covid vaccine. - Social history:: Smoking status: Patient denies any tobacco usage or history of. ROS: 23:49 Constitutional: Negative for fever, chills, and weight loss. kb 23:49 Cardiovascular: Positive for chest pain, Negative for edema, orthopnea, palpitations, paroxysmal nocturnal dyspnea. 23:49 All other systems are negative. Exam: 23:49 Constitutional: This is a well developed, well nourished patient who is awake, alert, kb and in no acute distress. Head/Face: Normocephalic, atraumatic. ENT: Moist Mucous membranes Cardiovascular: Regular rate and rhythm with a normal S1 and S2. No gallops, murmurs, or rubs. No pulse deficits. Respiratory: Respirations even and unlabored. No increased work of breathing. Talking in full sentences Abdomen/GI: Soft, non-tender. No distention Skin: Warm, dry with normal turgor. Normal color. MS/ Extremity: Pulses equal, no cyanosis. Neurovascular intact. Full, normal range of motion. Neuro: Awake and alert, GCS 15, oriented to person, place, time, and situation. Moves all extremities. Normal gait. Psych: Awake, alert, with orientation to person, place and time. Behavior, mood, and affect are within normal limits. 07/12 00:17 ECG was reviewed by the Attending Physician. kb Vital Signs: 07/11 23:17 BP 170 / 75; Pulse 70; Resp 16 S; Temp 98.5(O); Pulse Ox 98% on R/A; Weight 115.67 kg bb (R); Height 5 ft. 1 in. (154.94 cm) (R); Pain 5/10; 23:48 BP 135 / 51; Pulse 72; Resp 15; Pulse Ox 100% on R/A; ld1 07/12 01:20 BP 132 / 63; Pulse 72; Resp 13; Pulse Ox 96% on R/A; ja4 02:59 BP 139 / 63; Pulse 69; Resp 18; Pulse Ox 95% on R/A; ja4 07/11 23:17 Body Mass Index 48.18 (115.67 kg, 154.94 cm) bb MDM: 07/11 23:06 Patient medically screened. rn 23:49 Data reviewed: vital signs, nurses notes. Data interpreted: Pulse oximetry: on room air kb is 98 %. Interpretation: normal. 07/12 00:34 Counseling: I had a detailed discussion with the patient and/or guardian regarding: the kb historical points, exam findings, and any diagnostic results supporting the discharge/admit diagnosis, lab results, radiology results, the need for further work-up and treatment in the hospital. Physician consultation: Lavinia ENGLISH was contacted at 00:34, regarding admission, to the telemetry unit. patient's condition, and will see patient in ED. 07/11 23:06 Order name: Basic Metabolic Panel; Complete Time: 00:06 rn 07/11 23:06 Order name: CBC with Diff; Complete Time: 23:49 rn 07/11 23:06 Order name: NT PRO-BNP; Complete Time: 00:06 rn 07/11 23:06 Order name: Troponin HS; Complete Time: 00:06 rn 07/11 23:06 Order name: XRAY Chest (1 view) rn 07/12 00:50 Order name: SARS RAPID; Complete Time: 01:33 kb 07/11 23:06 Order name: EKG; Complete Time: 23:08 rn 07/11 23:06 Order name: Cardiac monitoring; Complete Time: 23:48 rn 07/11 23:06 Order name: EKG - Nurse/Tech; Complete Time: 23:48 rn 07/11 23:06 Order name: IV Saline Lock; Complete Time: 23:31 rn 07/11 23:06 Order name: Labs collected and sent; Complete Time: 23:32 rn 07/11 23:06 Order name: O2 Per Protocol; Complete Time: 23:48 rn 07/11 23:06 Order name: O2 Sat Monitoring; Complete Time: 23:48 rn EC:17 Rate is 71 beats/min. Rhythm is regular. QRS [place] is Normal. ND interval is prolonged kb at 210 msec. QRS interval is normal at 154 msec. QT interval is prolonged at 502 msec. Administered Medications: No medications were administered Disposition: 05:03 Co-signature as Attending Physician, Juancho Samson MD. rn Disposition Summary: 07/12/22 00:35 Hospitalization Ordered Hospitalization Status: Observation kb Provider: Jolie Moody Location: Telemetry/MedSurg (observation) kb Condition: Stable kb Problem: new kb Symptoms: are unchanged kb Bed/Room Type: Standard Room Assignment: 418(07/12/22 02:30) Diagnosis - Chest pain, unspecified kb Forms: - Medication Reconciliation Form kb - SBAR form kb Signatures: Dispatcher [employer] Roseline Johnson, COIL MACHINE OPERATOR-C COIL MACHINE OPERATOR-Gisele Alejandro RN RN Bonita Lao RN RN bb Juancho Samson MD MD chief crna: (The following items were deleted from the chart) 02:30 00:35 kb mw
[2022-07-12 01:20] LABS: SARS-CoV-2 Antigen Rapid Res Positive (Negative)
--- NOTE | 2022-07-12 01:24 | P.HP ---
Certification for Inpatient Patient admitted to: Observation With expected LOS: <2 Midnights Patient will require the following post-hospital care: None Practitioner: I am a practitioner with admitting privileges, knowledge of patient current condition, hospital course, and medical plan of care. Services: Services provided to patient in accordance with Admission requirements found in Title 42 Section 412.3 of the Code of Federal Regulations Patient History Date of Service: 07/12/22 Primary Care Provider: Lopez Reason for admission: Chest Pain History of Present Illness: Patient is a 71-year-old female with history of hypertension and GERD who presented to the ED with complaints of chest pain that radiates to her arms bila terally. Patient reports that she has been in the ER with her all day as he has pneumonia. She was finally at home relaxing when she "started to feel her blood pressure rise" it was noted to be 157 systolic so she took her carvedilol and 81 mg aspirin. She later started experiencing chest pain and numbness and tingling in both of her arms. BP was 170/75 upon arrival to the ED. Labs within normal limits, including troponin. Upon my assessment, patient reports that her chest pain is resolved, she is just complaining of a headache. She is incidentally COVID-positive. ED provider wishes to have patient for observation. Allergies Tetanus Vaccines and Toxoid [Tetanus] Allergy (Mild, Verified 05/02/19 16:43) Rash Sulfa (Sulfonamide Antibiotics) [Sulfa(Sulfonamide Antibiotics)] Allergy (Unknown, Verified 05/02/19 16:43) Shortness of breath ciprofloxacin Allergy (Verified 05/02/19 16:43) Shortness of breath Medipore tape Adverse Reaction (Uncoded 05/02/19 16:43) Itching/Hives/Rash Home medications list reviewed: Yes Home Medications: Aspirin [Mark Chewable Aspirin] 81 mg PO DAILY 05/02/19 Cholecalciferol (Vitamin D3) [Vitamin D3] 2,000 unit PO DAILY 05/02/19 Docusate [Colace Cap*] 100 mg PO DAILY 05/02/19 Esomeprazole Mag Trihydrate [Nexium] 20 mg PO BID 05/02/19 Losartan Potassium [Cozaar*] 50 mg PO DAILY 05/02/19 Meclizine HCl 25 mg PO DAILY 05/02/19 Melatonin 3 mg PO BEDTIME 05/02/19 Sertraline [Zoloft*] 50 mg PO DAILY 05/02/19 Spironolact/Hydrochlorothiazid [Spironolactone-Hctz 25-25 Tab] 1 tab PO DAILY 05/02/19 carvediloL [Coreg*] 3.125 mg PO BID 05/02/19 Atorvastatin Calcium [Lipitor] 40 mg PO BEDTIME #30 tab 05/05/19 Nitroglycerin [Nitrostat*] 0.4 mg SL UD PRN #10 tab 05/05/19 - Past Medical/Surgical History Diabetic: No -: HTN -: Cholecystectomy -: Hysterectomy -: L knee repair -: Appendectomy -: R ankle repair -: sinus surg. Psychosocial/ Personal History: Patient lives at home with her . - Family History Father -: Heart disease, Cancer Notes: from colon cancer - Social History Smoking Status: Never smoker Alcohol use: Yes CD- Drugs: No Caffeine use: Yes Place of Residence: Home Review of Systems Cardiovascular: Chest Pain, Other (Bilateral arm tingling) Physical Examination - Physical Exam General: Alert, In no apparent distress HEENT: Atraumatic, PERRLA, EOMI, Sclerae nonicteric Neck: Supple, 2+ carotid pulse no bruit, No LAD, Without JVD or thyroid abnormality Respiratory: Clear to auscultation bilaterally, Normal air movement Cardiovascular: Regular rate/rhythm, Normal S1 S2 Gastrointestinal: Normal bowel sounds, No tenderness Musculoskeletal: No tenderness Integumentary: No rashes Neurological: Normal speech, Normal strength at 5/5 x4 extr, Normal tone, Normal affect - Studies Laboratory Data (last 24 hrs) 07/11/22 23:30: WBC 7.30, Hgb 12.8, Hct 37.9, Plt Count 175 07/11/22 23:30: Sodium 141, Potassium 3.8, BUN 14, Creatinine 0.81, Glucose 112 H Assessment and Plan - Problems (Diagnosis) (1) Chest pain Current Visit: Yes Status: Acute Qualifiers: Chest pain type: unspecified Qualified Code(s): R07.9 - Chest pain, uns pecified (2) Hypertension Current Visit: Yes Status: Chronic Qualifiers: Hypertension type: primary hypertension Qualified Code(s): I10 - Essential (primary) hypertension (3) COVID-19 Current Visit: Yes Status: Acute - Plan -Initial troponin negative. Trend q6hx2 -Monitor on telemetry. Patient states that she has a "irregular heartbeat" EKG showed bifasicular block. -Cardiology consulted. Patient sees Dr. Lewis outpatient. She had cardiac cath here 3 years ago that did not require stent. -Droplet precautions. Vitamin C and zinc daily -Lipid panel and TSH in the morning -Aspirin -Monitor and replete electrolytes per protocol -Reconcile and continue home medications -Lovenox for VTE ppx -Full code Discharge Plan: Home Plan to discharge in: 24 Hours - Advance Directives Does patient have a Living Will: No Does patient have a Durable POA for Healthcare: No - Code Status/Comfort Care Code Status Assessed: Yes (Full) Critical Care: No Time Spent Managing Pts Care (In Minutes): 50
[2022-07-12] MEDS ORDERED: HYDROCODONE/APAP 5/325 MG TAB PO PRN (01:44)
[2022-07-12] MEDS ORDERED: ACETAMINOPHEN 500 MG TAB PO PRN (01:44)
[2022-07-12] MEDS ORDERED: ONDANSETRON 4 MG/2 ML VIAL IV PRN (01:44)
[2022-07-12] MEDS ORDERED: HYDROCODONE/APAP 5/325 MG TAB ONE (02:27)
[2022-07-12 04:20] VITALS: BMI 48.2
[2022-07-12 06:16] LABS: Thyroid Stimulating Hormone 2.32 uIU/mL (0.360-3.740); Troponin High Sensitivity 7.3 pg/mL (<58.9)
[2022-07-12 08:32] VITALS: TEMP 97.4
[2022-07-12] MEDS ORDERED: ASCORBIC ACID 500 MG TABLET PO SCH (09:00)
[2022-07-12] MEDS ORDERED: POTASSIUM CL SA 10 MEQ TAB PO ONE (09:00)
[2022-07-12] MEDS ORDERED: ASPIRIN EC 81 MG TAB PO SCH (09:00)
[2022-07-12] MEDS ORDERED: ZINC SULFATE 220 MG CAP PO SCH (09:00)
[2022-07-12] MEDS ORDERED: ENOXAPARIN 40 MG/0.4 ML SQ SCH (09:00)
[2022-07-12 09:23] VITALS: O2SAT 94
--- NOTE | 2022-07-12 10:42 | RAD REPORT ---
EXAM DESCRIPTION: Single view AP chest radiograph CLINICAL HISTORY: HTN. COMPARISON: None. TECHNIQUE: Single view AP chest radiograph(s). FINDINGS: Slightly suboptimal evaluation due to patient body habitus. No focal infiltrate identified . No pleural effusion. No pneumothorax. Nonenlarged cardiomediastinal silhouette. No significant osse ous abnormality. IMPRESSION: No acute cardiopulmonary abnormality identified by radiograph. Electronically signed by: Vita Nuñez MD 07/11/2022 11:59 PM CDT Due to temporary technical issues with the PACS/Fluency reporting system, reports are being signed by the in house radiologists without review as a courtesy to insure prompt reporting. The interpreting radiologist is fully responsible for the content of the report.
[2022-07-12 12:26] VITALS: BP 147/68
--- NOTE | 2022-07-12 13:56 | EKG ---
Test Date: 2022-07-11 Test Time: 23:39:00 Opal Miner: JNOO MEASUREMENT RESULTS: Intervals: Rate: 71 AR: 210 QRSD: 154 QT: 462 QTc: 502 [place]: P: 75 AR: 210 QRS: -52 T: 53 INTERPRETIVE STATEMENTS: Sinus rhythm with 1st degree AV block Right bundle branch block Left anterior fascicular block Bifascicular block Left ventricular hypertrophy with repolarization abnormality Cannot rule out Septal infarct, age undetermined Abnormal ECG Compared to ECG 05/30/2021 10:36:43 Early repolarization now present Bifascicular block still present Myocardial infarct finding still present Electronically Signed On 07-12-22 13:55:10 CDT by Liu Acosta
--- NOTE | 2022-07-12 22:22 | CON ---
Date of Consultation: 07/12/2022 Reason For Consultation: Chest pain. History Of Present Illness: This 71-year-old female with history of acid reflux and hypertension pre sented to the emergency room with chest pain that radiates to both arms. The chest pain is at rest, not related to exertion. The patient was brought into the emergency room. She tested positive for C OVID and blood pressure was elevated as high as 180 and she said that it suddenly just jumped up whil e she was resting and did not have any symptoms at that time, but later on started having chest pain, so she became concerned and she came to the emergency room and she is chest pain free at the present time. She does have any history of cardiac disease or coronary artery disease or cardiac interventi on in the past. Past Medical History: As outlined above in the HPI. Medications: Refer to reconciliation sheet for detailed list. Allergies: ALLERGY LIST WAS REVIEWED. SHE IS ALLERGIC TO SULFA DRUGS, CIPROFLOXACIN, AND TETANUS. Family History: No premature coronary artery disease or cancer. Social History: Does not smoke or drink. Does not use any drugs. Review of Systems: All systems reviewed are negative except for as mentioned in HPI. Physical Examination: Vital Signs: Temperature is 97.4, pulse 63, breathing at 18, blood pressure is 147/68, saturating 96 % on room air. General: A pleasant middle-aged female, in no apparent distress. Head And Neck: Pupils are equal and reactive to light. Intact eye movements. No JVD. No cervical lymphadenopathy. Neck: Supple. Thyroid is not enlarged. Lungs: Clear to auscultation bilaterally. No rhonchi, rales, or crackles. No accessory muscle use. Heart: Regular rate and rhythm. No extra sounds. Abdomen: Soft, nontender. Bowel sounds positive. No organomegaly. No masses or hernia. No rigidi ty or rebound. Extremities: No edema, clubbing, or cyanosis. Intact pulses. Skin: No rashes. Neurologic: Alert, awake, and oriented x3. No acute focal deficits appreciated. Lymph Nodes: No cervical or axillary adenopathy. Investigations: Labs were reviewed. Her hemoglobin is 12.8, total white blood cell count 7.3. BUN is 15 and creatinine 0.81. Assessment And Recommendation: 1.Chest pain. Three sets of cardiac enzymes are negative. Due to age, recommend outpatient exercis e stress test and an echocardiogram, but from cardiology standpoint, the patient is stable for discha rge and these tests can be arranged as an outpatient. Baby aspirin 81 mg is recommended on daily bas is. 2.Hypertension. Start lisinopril 10 mg daily and adjust further for a better blood pressure control . SR/MODL Voice ID: [id number] Report ID: [id number]
[2022-07-13] MEDS ORDERED: lisinopriL 10 MG TAB PO SCH (09:00)
== END 2022-07-12 16:45 | disposition home or self-care (01) ==
LOC: ER 22:56 → ERHOLD 07-12 01:30 → 4TH 07-12 04:05
PROVIDERS: ADMIT Hospitalist; ATTEND Hospitalist
DX: R07.9 Chest pain, unspecified (principal); U07.1 COVID-19; I10 Essential (primary) hypertension; K21.9 Gastro-esophageal reflux disease without esophagitis; Z88.2 Allergy status to sulfonamides; Z88.1 Allergy status to other antibiotic agents; Z88.7 Allergy status to serum and vaccine
CPT/HCPCS: 93005; 85025; 80048; 36415; 80061; 84443; 84484 ×3; 83880; 71045; 94760; 99285; 87811; J1650; G0378 ×2

== ENCOUNTER 2023-05-15 22:47 | Emergency (ER) | payer OTHER ==
--- OUTSIDE RECORDS SUMMARY | 2023-05-15 22:51 | XMS REPORT | Continuity of Care Document ---
:1950 Author Organization [facility] t Address [address] [place] [address] Care Team Providers Name Role Phone MORRO [...] rs active active ity of problems problems [facility] Allergies, Adverse Reactions, Alerts Allergy Allergy Status Severity Reaction(s) Onset Inactive Treating Comm ents Source Name Type Date Date Clinician NO KNOWN Drug Active [facility] ALLERGIE Class ity of S [facility] Social History Social Habit Start Date Stop Date Quantity Comments Source Exposure to Yes [facility] SARS-CoV-2 (event) Medica l Branch Sex Assigned At [birth year] [facility] 00:00:00 00:00:00 [facility] Smoking Status Start Date Stop Date Source Unknown if ever smoked [facility] Medications Ordered Filled Start Stop Current Ordering Indication Dosage Frequency Signature Comments Components Source Medication Medication Date Date Medication? Clinician (SIG) Name Name casirivimab 2020-11- No [id number] 1200mg 1,200 mg, Univers -imdevimab 2-15 12-14 [...] 10/16/21 at 1400, Routine albuterol 2020-11 Yes [id number] 2{puff} Inhale 2 Univers 90 2-14 Puffs ity of mcg/actuati 00:00: every 4 Mike as on inhaler 00 (four) Medical hours as Branch needed for Wheezing or Shortness of Breath. benzonatate 2020-11 Yes [id number] 100mg Take 1 Univers 100 mg 2-14 capsule by ity of capsule 00:00: mouth 3 [place] 00 (three) Medical times Branch daily as needed for Cough. bromphenira 2020-11 Yes [id number] 5mL Take 5 mL Univers mine-pseudo 2-14 by mouth 4 it y of ephedrine-D 00[place]00: (four[place] (BROMF[place] 00 times Medical DM) 2-30-10 daily as Bran ch mg/5 mL needed for syrup Cold symptoms. ondansetron 2020-11 Yes [id number] 4mg Take 1 Univers (ZOFRAN 2-14 tablet by ity of ODT) 4 mg 00:00: mouth [place] disintegrat 00 every 8 Medic al ing tablet (eight) Branch hours as needed for Nausea and Vomiting (N/V). albuterol 2020-11 Yes [id number] 2{puff} Inhale 2 Univers 90 2-14 Puffs ity of mcg/actuati 00:00: every 4 [place] as on inhaler 00 (four) Medical hours as Branch needed for Wheezing or Shortness of Breath. benzonatate 2020-11 Yes [id number] 100mg Take 1 Univers 100 mg 2-14 capsule by ity of capsule 00:00: mouth 3 [place] 00 (three) Medical times Branch daily as needed for Cough. bromphenira 2020-11 Yes [id number] 5mL Take 5 mL [facility] mine-pseudo 2-14 by mouth 4 it y of ephedrine-D 00:00: (four[place] (BROMF[place] 00 times Medical DM) 2-30-10 daily as Bran ch mg/5 mL needed for syrup Cold symptoms. ondansetron 2020-11 Yes [id number] 4mg Take 1 Univers (ZOFRAN 2-14 tablet by ity of ODT) 4 mg 00:00: mouth [place] disintegrat 00 every 8 Medic al ing tablet (eight) Branch hours as needed for Nausea and Vomiting (N/V). Vital Signs Vital Name Observation Time Observation Value Comments Source Systolic blood 2021-10-16 23:40:00 139 mm[Hg] [facility] [place] [facility] Diastolic blood 2021-10-16 23:40:00 69 mm[Hg] [facility] 2021-10-16 23:40:00 90 /min [facility] Body temperature 2021-10-16 23:40:00 36.72 [facility] 2021-10-16 23:40:00 20 /[facility] O[facility] saturation in 2021-10-16 23:40:00 94 /min [facility] Arterial blood by [place] [facility] Pulse oximetry [place] Body height 2021-10-16 22:50:00 154.9 cm [facility] Body weight 2021-10-16 22:50:00 112.492 kg [facility] BMI 2021-10-16 22:50:00 46.86 kg/m2 [facility] Systolic blood 2021-10-16 17:09:00 150 mm[Hg] [facility] Diastolic blood 2021-10-16 17:09:00 87 mm[Hg] [facility] Heart rate 2021-10-16 17:09:00 79 /min [facility] Body temperature 2021-10-16 17:09:00 36.94 [facility]isa [facility] Respiratory rate 2021-10-16 17:09:00 19 /min [facility] Body height 2021-10-16 17:09:00 154.9 cm [facility] Body weight 2021-10-16 17:09:00 112.492 kg [facility] BMI 2021-10-16 17:09:00 46.86 kg/m2 [facility] Oxygen saturation in 2021-10-16 17:09:00 95 /min [facility] Arterial blood by [place] [facility] Pulse oximetry Branch Procedures This patient has no known procedures. Encounters Start End Encounter Admission Attending Care Care Encounter Source Date/Time Date/Time Type Type Clinicians Facility Department ID 2021-10-16 2021-10-16 Nurse Therapy, Adc Covid Infusion [facility] [id number] Univers 16:25:14 17:25:14 Visit David Reaves [id number] ity [facility] [id number] [facility] s [facility] [id number] [facility] 053 Branch 2021-10-16 2021-10-16 Outpatient Roberto [facility]AVES [facility] [id number] Univers 16:00:00 16:00:00 DAVID [facility] 2021-10-16 2021-10-16 Outpatient Roberto REAVES [facility] ERT [id number] Univers 16:00:00 16:00:00 DAVID [facility] 2021-10-16 2021-10-16 Emergency [facility] [id number] Univers 11:10:00 13:35:00 Ne MENDOSA [id number] ity [facility] [id number] [facility] [id number] [facility] 084 Branch Results This patient has no known results.
[2023-05-15 23:36] LABS: Absolute Lymphocytes (CBC) 1.6 K/uL (0.7-4.9); Hematocrit 37.7 % (36.0-45.0); Lymphocytes % 21.3 % (15.3-44.8); MCV 87.3 fL (80-100); RBC Red Blood Cell Count 4.32 M/uL (3.86-4.86)
[2023-05-15 23:48] LABS: Potassium 3.4 mEq/L (3.5-5.1); Protime INR 0.96; Troponin High Sensitivity 5.7 pg/mL (<58.9)
--- NOTE | 2023-05-16 02:20 | EDPHYS ---
Physician Documentation [facility] Name: Dominga Gutierrez Age: 72 yrs Sex: Female : 1950 Arrival Date: 05/15/2023 Time: 22:47 Bed 7 Private MD: ED Physician Juancho Samson HPI: 05/15 23:30 This 72 yrs old Female presents to ER via Unassigned with complaints of high blood rn pressure, right arm pain. 23:30 The patient has elevated blood pressure and discovered this at home. Onset: The rn symptoms/episode began/occurred today. Modifying factors:. Associated signs and symptoms: Pertinent positives: headache, Pertinent negatives: chest pain, dyspnea, weakness. Severity of symptoms: At its worst the blood pressure was moderate, in the emergency department the blood pressure is unchanged. The patient has not experienced similar symptoms in the past. The patient has not recently seen a physician. Pt reports high blood pressure at home, was 180s systolic, has hx of HTN, but felt right arm pain, "burning", no weakness/numbness, so called for 911. NO chest pain/sob/focal neuro complaint. Burning right arm improved. No back pain. No abd pain. EMS gave zofran for nausea. Of note, in hospital right now with heart attack and under a lot of stress. . Historical: - PMHx: 23:31 GERD; Hypertension; Retinal detachment August 2015; rv - PSHx: 23:31 None; rv - Immunization history:: Adult Immunizations up to date. - Social history:: Smoking status: Patient denies any tobacco usage or history of. - Family history:: not pertinent. - Hospitalizations: : No recent hospitalization is reported. ROS: 23:30 Constitutional: Negative for fever, chills, and weight loss, Neck: Negative for injury, rn pain, and swelling, Cardiovascular: Negative for chest pain, palpitations, and edema, Respiratory: Negative for shortness of breath, cough, wheezing, and pleuritic chest pain, Abdomen/GI: Negative for abdominal pain, nausea, vomiting, diarrhea, and constipation, Back: Negative for injury and pain, MS/Extremity: Negative for injury and deformity, Skin: Negative for injury, rash, and discoloration, Neuro: Negative for weakness, numbness, tingling, and seizure. Exam: 23:30 Constitutional: This is a well developed, well nourished patient who is awake, alert, rn seems anxious Head/Face: Normocephalic, atraumatic. Eyes: Pupils equal round and reactive to light, extra-ocular motions intact. Neck: No Meningismus. Cardiovascular: Regular rate and rhythm. No pulse deficits. Respiratory: No increased work of breathing, no retractions or nasal flaring. Abdomen/GI: soft, non-tender, no pulsatile mass Skin: Warm, dry MS/ Extremity: Pulses equal, no cyanosis. Neurovascular intact. Full, normal range of motion. Equal circumference. Neuro: Awake and alert, GCS 15, oriented to person, place, time, and situation. Cranial nerves II-XII grossly intact. Motor strength 5/5 in all extremities. Sensory grossly intact. Cerebellar exam normal. Vital Signs: 23:31 Weight 111.58 kg; Height 5 ft. 2 in. ; rv 23:33 BP 126 / 62; Pulse 77; Resp 17; Temp 98; Pulse Ox 95% ; rv 05/16 01:49 BP 134 / 72; Pulse 85; Resp 16; Pulse Ox 91% on R/A; rv 02:30 BP 132 / 70; Pulse 81; Resp 18; Temp 98; Pulse Ox 99% on R/A; rv 05/15 23:31 Body Mass Index 44.99 (111.58 kg, 157.48 cm) rv [place] Coma Score: 02:30 Eye Response: spontaneous(4). Motor Response: obeys commands(6). Verbal Response: rv oriented(5). Total: 15. MDM: 05/15 22:58 Patient medically screened. rn 05/16 00:34 ED course: Pt back to baseline, no complaints at this time and BP improving without garnisher.. 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 Data reviewed: vital signs, nurses notes, lab test result(s), EKG, radiologic studies, CT scan, plain films, and as a result, I will discharge patient. Care significantly affected by the following chronic conditions: Hypertension. Counseling: I had a detailed discussion with the patient and/or guardian regarding: the historical points, exam findings, and any diagnostic results supporting the discharge/admit diagnosis, lab results, radiology results, the need for outpatient follow up, to return to the emergency department if symptoms worsen or persist or if there are any questions or concerns that arise at home. Response to treatment: the patient's symptoms have resolved after treatment, the patient's condition has returned to base line, the patient is now symptom free, and as a result, I will discharge patient. Special discussion: I discussed with the patient/guardian in detail that at this point there is no indication for admission to the hospital. It is understood, however, that if the symptoms persist or worsen the patient needs to return immediately for re-evaluation. Based on the history and exam findings, there is no indication for further emergent testing or inpatient evaluation. I discussed with the patient/guardian the need to see the guide foreign tour for further evaluation of the symptoms. I discussed with the patient/guardian the need to see the primary care provider for further evaluation of the symptoms. ED course: Bp now down to 119/65 without medication/treatment. CT head and aorta grossly neg. Normal neuro exam. Trop neg x 2 and never had chest pain/sob. Will dc home with return precautions. Family kept updated and happy with care, state ready to go home. . 02:22 ED course: Notified of thyroid nodules as well. . 05/15 22:59 Order name: Basic Metabolic Panel; Complete Time: 23:49 05/15 22:59 Order name: CBC with Diff; Complete Time: 23:49 05/15 22:59 Order name: NT PRO-BNP; Complete Time: 23:49 05/15 22:59 Order name: PT-INR; Complete Time: 00:28 05/15 22:59 Order name: Troponin HS; Complete Time: 23:49 05/16 00:34 Order name: Troponin High Sensitivity; Complete Time: 01:34 05/15 22:59 Order name: XRAY Chest (1 view) 05/15 22:59 Order name: CT Head Brain wo Cont 05/15 22:59 Order name: CT Aorta for Dissection 05/15 22:59 Order name: EKG; Complete Time: 23:01 05/16 01:03 Order name: EKG; Complete Time: 01:04 05/15 22:59 Order name: Cardiac monitoring; Complete Time: 23:30 05/15 22:59 Order name: EKG - Nurse/Tech; Complete Time: 23:30 rn 05/15 22:59 Order name: IV Saline Lock; Complete Time: 23:30 rn 05/15 22:59 Order name: Labs collected and sent; Complete Time: 23:30 rn 05/15 22:59 Order name: O2 Per Protocol; Complete Time: 23:30 rn 05/15 22:59 Order name: O2 Sat Monitoring; Complete Time: 23:30 rn 05/16 01:03 Order name: EKG - Nurse/Tech; Complete Time: 01:49 rn Administered Medications: No medications were administered Disposition Summary: 05/16/23 02:20 Discharge Ordered Location: Home rn Problem: new rn Symptoms: have improved rn Condition: Stable rn Diagnosis - Essential (primary) hypertension rn Followup: rn - With: Private Physician - When: As needed - Reason: Recheck today's complaints, Re-evaluation by your physician Forms: - Medication Reconciliation Form rn - Thank You Letter rn - Antibiotic prevention rn - Prescription Opioid Use rn - Patient Portal Instructions rn Signatures: Dispatcher [employer] EDJuancho Cowan MD MD rn Vicente, Ronaldo, RN RN rv Corrections: (The following items were deleted from the chart) 05/15 23:33 23:30 Constitutional: This is a well developed, well nourished patient who is awake, rn alert, seems anxious Head/Face: Normocephalic, atraumatic. Eyes: Pupils equal round and reactive to light, extra-ocular motions intact. Cardiovascular: Regular rate and rhythm. No pulse deficits. Respiratory: No increased work of breathing, no retractions or nasal flaring. Abdomen/GI: soft, non-tender, no pulsatile mass Skin: Warm, dry MS/ Extremity: Pulses equal, no cyanosis. Neurovascular intact. Full, normal range of motion. Equal circumference. Neuro: Awake and alert, GCS 15, oriented to person, place, time, and situation. Cranial nerves II-XII grossly intact. Motor strength 5/5 in all extremities. Sensory grossly intact. Cerebellar exam normal. rn
--- NOTE | 2023-05-16 02:20 | ER ---
Nurse's Notes [facility] Name: Dominga Gutierrez Age: 72 yrs Sex: Female : 1950 Arrival Date: 05/15/2023 Time: 22:47 Bed 7 Private MD: Diagnosis: Essential (primary) hypertension Presentation: 05/15 23:30 Chief complaint: EMS states: sudden onset of left arm pain, burning sensation, with rv nausea and vomiting. Coronavirus screen: Vaccine status:. Ebola Screen: Patient negative for fever greater than or equal to 101.5 degrees Fahrenheit, and additional compatible Ebola Virus Disease symptoms Patient denies exposure to infectious person. Patient denies travel to an Ebola-affected area in the 21 days before illness onset. Initial Sepsis Screen: Does the patient meet any 2 criteria? No. Patient's initial sepsis screen is negative. Does the patient have a suspected source of infection? No. Patient's initial sepsis screen is negative. Risk Assessment: Do you want to hurt yourself or someone else? Patient reports no desire to harm self or others. Onset of symptoms was May 15, 2023 at 23:31. 23:30 Method Of Arrival: EMS: [facility] rv 23:30 Acuity: NATHAN 3 rv Triage Assessment: 23:32 General: Appears comfortable, Behavior is calm, cooperative. Pain: Denies pain. Neuro: rv Level of Consciousness is awake, alert, obeys commands, Oriented to person, place, time, situation. Cardiovascular: Capillary refill. Respiratory: Airway is compromised Respiratory effort is even, unlabored. GI: Reports nausea, vomiting. : No signs and/or symptoms were reported regarding the genitourinary system. Derm: Skin is intact. Historical: - PMHx: 23:31 GERD; Hypertension; Retinal detachment August 2015; rv - PSHx: 23:31 None; rv - Immunization history:: Adult Immunizations up to date. - Social history:: Smoking status: Patient denies any tobacco usage or history of. - Family history:: not pertinent. - Hospitalizations: : No recent hospitalization is reported. Screenin:32 [facility] ED Fall Risk Assessment (Adult) History of falling in the last 3 months, rv including since admission No falls in past 3 months (0 pts) Confusion or Disorientation No (0 pts) Intoxicated or Sedated No (0 pts) Impaired Gait No (0 pts) Mobility Assist Device Used No (0 pt) Altered Elimination No (0 pt) Score/Fall Risk Level 0 - 2 = Low Risk Oriented to surroundings, Maintained a safe environment, Educated pt \T\ family on fall prevention, incl call for assistance when getting out of bed, Assessed \T\ reinforced patient's understanding of fall precautions, Provided non-skid footwear, Hourly rounding (assess needs \T\ fall precautionary measures) done, Used ambulatory aids as needed (educated on \T\ assisted with), Used gait belt as appropriate. Abuse screen: Denies threats or abuse. Denies injuries from another. Nutritional screening: No deficits noted. Tuberculosis screening: No symptoms or risk factors identified. Assessment: 05/16 02:00 Reassessment: No changes from previously documented assessment. Patient is alert, rv oriented x 3, equal unlabored respirations, skin warm/dry/pink. Vital Signs: 05/15 23:31 Weight 111.58 kg; Height 5 ft. 2 in. ; rv 23:33 BP 126 / 62; Pulse 77; Resp 17; Temp 98; Pulse Ox 95% ; rv 05/16 01:49 BP 134 / 72; Pulse 85; Resp 16; Pulse Ox 91% on R/A; rv 02:30 BP 132 / 70; Pulse 81; Resp 18; Temp 98; Pulse Ox 99% on R/A; rv 05/15 23:31 Body Mass Index 44.99 (111.58 kg, 157.48 cm) rv [place] Coma Score: 02:30 Eye Response: spontaneous(4). Motor Response: obeys commands(6). Verbal Response: rv oriented(5). Total: 15. ED Course: 05/15 22:54 Patient arrived in ED. rv 22:58 Juancho Samson MD is Attending Physician. rn 23:12 Radiology exam delayed due to lab results not completed at this time. (BUN/Creatinine) ls3 IV insertion attempt and/or patient not having appropriate IV at this time. 23:15 EKG done, by ED staff, reviewed by Juancho Samson MD. mb9 23:15 Maintain EMS IV. Dressing intact. Good blood return noted. Site clean \T\ dry. Gauge \T\ mb 9 site: 20 g left AC. 23:29 XRAY Chest (1 view) In Process Unspecified. EDMS 23:30 CT Head Brain wo Cont In Process Unspecified. EDMS 23:30 CT Aorta for Dissection In Process Unspecified. EDMS 23:30 Adilson Chávez, RN is Primary Nurse. rv 23:31 Triage completed. rv 23:31 Arm band placed on. mb9 23:31 Placed in gown. Bed in low position. Call light in reach. Side rails up X 1. Client mb9 placed on continuous cardiac and pulse oximetry monitoring. NIBP monitoring applied. pipe recovery specialist on. 23:33 No provider procedures requiring assistance completed. rv 05/16 02:45 IV discontinued, intact, bleeding controlled, No redness/swelling at site. Pressure rv dressing applied. 02:45 Provided Education on: aneurysm. rv Administered Medications: No medications were administered Medication: 05/15 23:33 VIS not applicable for this client. rv Outcome: 05/16 02:20 Discharge ordered by . rn 02:45 Discharged to home ambulatory, with family. rv 02:45 Condition: improved 02:45 Discharge instructions given to patient, family, Instructed on discharge instructions, follow up and referral plans. Demonstrated understanding of instructions, follow-up care. 02:45 Patient left the ED. rv Signatures: Dispatcher [employer] EDMS Juancho Samson MD MD rn Vicente, Ronaldo, RN RN rv Jw Braun 3 Leonora Hendrix RN RN mb9
[2023-05-16 05:10] VITALS: TEMP 98
[2023-05-16 05:14] VITALS: BP 132/70; O2SAT 99
--- NOTE | 2023-05-16 17:31 | RAD REPORT ---
EXAM DESCRIPTION: CT - Head Brain Wo Cont - 05/16/2023 6:30 am CLINICAL HISTORY: The patient is 72 years old and is Female; headache, HTN TECHNIQUE: Axial computed tomography images of the head/brain without intravenous contrast. Sagitt al and coronal reformatted images were created and reviewed. This CT exam was performed using one o r more of the following dose reduction techniques: automated exposure control, adjustment of the mA and/or kV according to patient size, and/or use of iterative reconstruction technique. COMPARISON: CT Head dated April 30 2023 FINDINGS: BRAIN: Unremarkable. The ramirez-white matter differentiation is preserved . No hemorrhag e. No significant white matter disease. No edema. No extra-axial fluid collections. VENTRICLES: Unremarkable. No ventriculomegaly. BONES/JOINTS: No acute fracture. SOFT TISSUES: Bilateral scalp lesions are redemonstrated, some of which demonstrate punctate calc ification. SINUSES: Unremarkable as visualized. No acute sinusitis. MASTOID AIR CELLS: Unremarkable as visualized. No mastoid effusion. ORBITS: Unremarkable as visualized. IMPRESSION: No acute intracranial findings. Electronically signed by: Cathy Almonte MD 05/16/2023 1:10 AM CDT Due to temporary technical issues with the PACS/Fluency reporting system, reports are being signed by the in house radiologists without review as a courtesy to insure prompt reporting. The interpreting radiologist is fully responsible for the content of the report.
--- NOTE | 2023-05-16 17:34 | RAD REPORT ---
EXAM DESCRIPTION: RAD - Chest Single View - 05/15/2023 11:28 pm CLINICAL INDICATION: 72 year-old female with hypertension. TECHNIQUE: Single view, AP portable chest was obtained. COMPARISON: 07/11/2022 FINDINGS: Unremarkable cardiac and mediastinal silhouette. Heart size is normal. Lungs are clear without focal opacity, pneumothorax or pleural effusions. The visualized bones are within normal limits. IMPRESSION: No acute cardiopulmonary abnormalities. Electronically signed by: Ayaka Bah MD 05/16/2023 12:07 AM CDT Due to temporary technical issues with the PACS/Fluency reporting system, reports are being signed by the in house radiologists without review as a courtesy to insure prompt reporting. The interpreting radiologist is fully responsible for the content of the report.
--- NOTE | 2023-05-16 17:35 | RAD REPORT ---
EXAM DESCRIPTION: CT - Angio Aorta For Dissection - 05/16/2023 6:30 am CLINICAL HISTORY: The patient is 72 years old and is Female; HTN, right arm pain TECHNIQUE: Axial computed tomographic angiography images of the chest, abdomen and pelvis with intra venous contrast. Sagittal and coronal reformatted images were created and reviewed. This CT exam was performed using one or more of the following dose reduction techniques: automated exposure cont rol, adjustment of the mA and/or kV according to patient size, and/or use of iterative reconstruction technique. MIP reconstructed images were created and reviewed. COMPARISON: No relevant prior studies available. FINDINGS: VASCULATURE: AORTA: No acute findings. No aortic aneurysm. No dissection. PULMONARY ARTERIES: Unremarkable as visualized. No pulmonary embolism is identified. GREAT VESSELS OF AORTIC ARCH: No acute findings. No dissection. No arterial occlusion or sign ificant stenosis. CELIAC TRUNK AND MESENTERIC ARTERIES: No acute findings. No occlusion or significant stenosis. RENAL ARTERIES: No acute findings. No occlusion or significant stenosis. ILIAC ARTERIES: No acute findings. No occlusion or significant stenosis. CHEST: LUNGS: Unremarkable. No mass. No consolidation. PLEURAL SPACE: Unremarkable. No significant effusion. No pneumothorax. HEART: Unremarkable. No cardiomegaly. No significant pericardial effusion. THYROID: Several thyroid nodules are present within the thyroid, the largest measures 1.4 cm. No follow-up imaging is recommended. ABDOMEN: LIVER: Unremarkable. No mass. GALLBLADDER AND BILE DUCTS: Surgical clips are present in the right upper quadrant, consistent wi th previous cholecystectomy. No ductal dilation. PANCREAS: Unremarkable. No ductal dilation. No mass. SPLEEN: Unremarkable. No splenomegaly. ADRENALS: Unremarkable. No mass. KIDNEYS AND URETERS: Unremarkable. No hydronephrosis. No solid mass. STOMACH AND BOWEL: The stomach is distended with food contents and air. The small bowel is normal in caliber. Stool is present throughout colon. There is no mucosal thickening or evidence of obstruc tion. PELVIS: APPENDIX: No findings to suggest acute appendicitis. BLADDER: The bladder is well distended. The bladder is moderately distended. REPRODUCTIVE: The patient is status post hysterectomy. CHEST, ABDOMEN and PELVIS: INTRAPERITONEAL SPACE: Unremarkable. No significant fluid collection. No free air. BONES/JOINTS: Degenerative change of the lower lumbar spine is present. No acute fracture. No dislocation. SOFT TISSUES: Unremarkable. LYMPH NODES: Unremarkable. No enlarged lymph nodes. IMPRESSION: 1. No evidence of abdominal aortic aneurysm or rupture. 2. Moderate stool burden without obstruction. Electronically signed by: Cathy Almonte MD 05/16/2023 2:12 AM CDT Due to temporary technical issues with the PACS/Fluency reporting system, reports are being signed by the in house radiologists without review as a courtesy to insure prompt reporting. The interpreting radiologist is fully responsible for the content of the report.
--- NOTE | 2023-05-19 11:53 | EKG ---
Test Date: 2023-05-15 Test Time: 22:47:15 Application Development Consultant: RV MEASUREMENT RESULTS: Intervals: Rate: 77 GA: 180 QRSD: 156 QT: 446 QTc: 504 Remer: P: 55 GA: 180 QRS: -58 T: 61 INTERPRETIVE STATEMENTS: Normal sinus rhythm Right bundle branch block Left anterior fascicular block Bifascicular block Left ventricular hypertrophy with repolarization abnormality Cannot rule out Septal infarct, age undetermined Lateral infarct, age undetermined Abnormal ECG Compared to ECG 07/11/2022 23:39:00 First degree AV block no longer present Bifascicular block still present Myocardial infarct finding still present Electronically Signed On 05-19-23 11:47:48 CDT by Liu Acosta
--- NOTE | 2023-05-19 11:53 | EKG ---
Test Date: 2023-05-16 Test Time: 01:08:15 Urgent Care Technician: RV MEASUREMENT RESULTS: Intervals: Rate: 84 ND: 264 QRSD: 152 QT: 436 QTc: 515 [place]: P: 85 ND: 264 QRS: -56 T: 45 INTERPRETIVE STATEMENTS: Sinus rhythm with 1st degree AV block with frequent premature ventricular complexes Right bundle branch block Left anterior fascicular block Bifascicular block Voltage criteria for left ventricular hypertrophy Abnormal ECG Compared to ECG 07/11/2022 23:39:00 Ventricular premature complex(es) now present Early repolarization no longer present Myocardial infarct finding no longer present Bifascicular block still present Electronically Signed On 05-19-23 11:47:41 CDT by Liu Acosta
== END 2023-05-16 02:45 | disposition home or self-care (01) ==
LOC: ER 22:47
DX: I10 Essential (primary) hypertension (principal)
CPT/HCPCS: 93005 ×2; 85025; 80048; 36415; 85610; 84484 ×2; 83880; 70450; 71275; 74175; 71045; 99284; Q9967

== ENCOUNTER 2024-06-23 16:32 | Inpatient (IN) | payer OTHER ==
[2024-06-23] MEDS ORDERED: NA CHLORIDE 0.9% 2,000 ML ONE (17:05)
[2024-06-23] MEDS ORDERED: ONDANSETRON 4 MG/2 ML VIAL ONE (17:05)
[2024-06-23] MEDS ORDERED: MORPHINE 4 MG/ML SYR ONE ×2 (17:05→19:09)
[2024-06-23 17:46] LABS: Absolute Eosinophils 0.1 K/uL (0-0.5); Absolute Lymphocytes (CBC) 1.2 K/uL (0.7-4.9); Absolute Monocytes 0.6 K/uL (0.1-1.3); Absolute Neutrophil 4.8 K/uL (1.8-8.0); Basophils % 0.6 % (0-1.3); Eosinophils % 1.5 % (0-4.4); Hematocrit 41.8 % (36.0-45.0); Hemoglobin 13.7 g/dL (12.0-15.0); Lymphocytes % 17.3 % (15.3-44.8); MCH 28.5 pg (27.0-35.0); MCHC 32.7 g/dL (32.0-36.0); MCV 87.1 fL (80-100); MPV 10.2 fL (7.6-11.3); Monocytes % 9.4 % (3.3-12.3); Neutrophils % 71.2 % (41.7-73.7); Nucleated Red Blood Cells % 0.3 % (0-0); Platelets 137 thou/uL (152-406); Red Cell Distribution Width 14.1 % (12.1-15.2)
[2024-06-23 18:02] LABS: Albumin 3.7 g/dL (3.4-5.0); Anion Gap 12.5 mEq/L (5.0-15.0); Bilirubin Total 0.7 mg/dL (0.2-1.0); Globulin 3.8 g/dL (2.3-3.5); Potassium 3.5 mEq/L (3.5-5.1); Protein, Total 7.5 g/dL (6.4-8.2)
--- NOTE | 2024-06-23 18:51 | RAD REPORT ---
EXAM DESCRIPTION: CTAbdomen Pelvis W Contrast - 06/23/2024 6:27 pm CLINICAL HISTORY: Abdominal pain. rectal abscess COMPARISON: <Comparisons> TECHNIQUE: Biphasic CT imaging of the abdomen and pelvis was performed with 100 ml non-ionic IV cont rast. All CT scans are performed using dose optimization technique as appropriate and may include automated exposure control or mA/KV adjustment according to patient size. FINDINGS: The lung bases are clear. The liver demonstrates fatty infiltration. Cholecystectomy clips. Postsurgical changes about the stom ach. Spleen, pancreas, adrenal glands and kidneys are within normal limits. No bowel obstruction, free air, free fluid or abscess. The appendix is normal. No evidence of signi ficant lymphadenopathy. There is diffuse thickening of the inferior rectum/ anus region up to 14 mm. No suspicious bony findings. IMPRESSION: Diffuse circumferential thickening of the inferior rectum and anal region. Direct visual ization may be considered.
--- NOTE | 2024-06-23 19:07 | EDPHYS ---
Physician Documentation [facility] Name: Dominga Gutierrez Age: 73 yrs Sex: Female : 1950 Arrival Date: 06/23/2024 Time: 16:32 Bed 8 Private MD: ED Physician Trav Almanza HPI: 06/23 17:03 This 73 yrs old Female presents to ER via Ambulatory with complaints of ec2 Rectal Pain. 17:03 Patient arrives today for evaluation of rectal pain. Patient reports that she was seen ec2 at Dr. Oropeza's office and was told to come to the emergency department for evaluation. Patient reports rectal pain worsening over the past several weeks. Reports no fevers or chills, nausea or vomiting. . Historical: - Allergies: 16:57 Sulfa; ph 16:57 Tape; ph - PMHx: 16:57 GERD; Hypertension; Retinal detachment August 2015; ph - Immunization history:: Adult Immunizations unknown. - Infectious Disease History:: Denies. - Social history:: Smoking status: unknown. ROS: 17:03 Constitutional: as per hpi ec2 Exam: 17:03 Constitutional: GEN: NAD Head: atraumatic Eyes: EOMI Ears: External ears are ec2 normal. CV: regular rate LUNGS: no respiratory distress ABD: non-distended, soft, no guarding, not rigid SKIN: no evidence of rashes MSK: no evidence of trauma Vital Signs: 16:56 BP 155 / 66; Pulse 67; Resp 18; Temp 97.9; Pulse Ox 98% on R/A; Weight 100.7 kg; Height ph 5 ft. 2 in. ; 17:20 BP 146 / 67; Pulse 77; Resp 18; Temp 98.1; Pulse Ox 100% on R/A; Weight 100.24 kg; ar6 Height 5 ft. 2 in. ; Pain 10/10; 18:21 BP 149 / 66; Pulse 60; Resp 18; Pulse Ox 97% ; mb9 19:30 BP 147 / 70; Pulse 60; Resp 18; Pulse Ox 95% on R/A; cp4 20:43 BP 126 / 58; Pulse 72; Resp 18; Temp 98.1; Pulse Ox 98% ; cp4 17:20 Body Mass Index 40.42 (100.24 kg, 157.48 cm) ar6 17:20 Pain Scale: Adult ar6 MDM: 16:38 Patient medically screened. ec2 17:03 Data reviewed: vital signs. ED course: Patient arrives today for rectal pain. ec2 Examination remarkable for hemodynamically stable was otherwise in no acute distress. Will obtain lab work, CT imaging, treat the patient pain. Differential includes hemorrhoids, rectal abscess, intra-abdominal infection. I did discuss case with Dr. Reina general surgery who informed patient prior to arrival.. 18:08 ED course: CBC reassuring, metabolic profile reassuring. Lipase within normal ranges. ec2 Pending CT imaging.. 19:06 ED course: CT imaging shows inflammation, no discrete pocket of fluid. Will give the ec2 patient antibiotics, admit to medicine for pain control, will have general surgery consult. Discussed case with the hospitalist, pending admission.. 08 16:39 Order name: CBC with Diff; Complete Time: 18:07 ec2 06/23 16:39 Order name: CMP; Complete Time: 18:07 ec2 06/23 16:39 Order name: Lipase; Complete Time: 18:07 ec2 06/23 19:31 Order name: Urinalysis w/ reflexes EDDC 06/23 19:31 Order name: CBC with Automated Diff EDMS 06/23 19:31 Order name: CBC with Automated Diff EDMS 06/23 19:31 Order name: Comprehensive Metabolic Panel EDDC 06/23 19:31 Order name: Comprehensive Metabolic Panel EDDC 06/23 16:39 Order name: CT Abd/Pelvis - IV Contrast Only; Complete Time: 19:00 ec2 06/23 19:31 Order name: CONS Physician Consult EDDC 06/23 16:39 Order name: IV Saline Lock; Complete Time: 17:38 ec2 06/23 16:39 Order name: Labs collected and sent; Complete Time: 17:38 ec2 Administered Medications: 17:20 Drug: NS 0.9% IV 1000 ml IV at 1 bolus Per protocol; 1000 mL bolus Route: IV; Rate: 1 ar6 bolus; Site: left antecubital; 18:24 Follow up: Response: No adverse reaction; IV Status: Completed infusion mb9 17:20 Drug: morphine IVP or IV 4 mg IVP once over 4 mins Route: IVP; Infused Over: 4 mins; ar6 Site: left antecubital; 18:24 Follow up: Response: No adverse reaction mb9 17:20 Drug: Ondansetron IVP 4 mg IVP once; over 2 minutes Route: IVP; Site: left antecubital; ar6 18:24 Follow up: Response: No adverse reaction mb9 17:20 Drug: NS 0.9% IV 1000 ml IV at 1 bolus Per protocol; 1000 mL bolus Route: IV; Rate: 1 ar6 bolus; Site: left antecubital; 18:23 Follow up: Response: No adverse reaction; IV Status: Completed infusion mb9 19:16 Drug: morphine IVP or IV 4 mg IVP once over 4 mins Route: IVP; Infused Over: 4 mins; ha1 Site: right antecubital; 19:56 Follow up: Response: No adverse reaction; Pain is decreased cp4 19:18 Drug: Piperacillin-Tazobactam IVPB 3.375 grams IVPB once over 60 mins; (mix in NS 100 ha1 mL) Route: IVPB; Infused Over: 60 mins; Site: right antecubital; 19:56 Follow up: Response: No adverse reaction; IV Status: Completed infusion cp4 Disposition Summary: 06/23/24 19:07 Hospitalization Ordered Notes: Hospitalization Status: Inpatient Admission ec2 Provider: Robbie Medina ec2 [facility] ec2 Condition: Stable ec2 Problem: new ec2 Symptoms: have improved ec2 Bed/Room Type: Standard ec2 Room Assignment: 205(06/23/24 19:41) rv1 Diagnosis - Rectal Pain ec2 - Rectal Inflammation ec2 Forms: - Medication Reconciliation Form ec2 - SBAR form ec2 - Leadership Thank You Letter ec2 Signatures: Dispatcher [employer] Nani Watson RN RN Liz Hawthorne RN RN ha1 Olivia Christensen rv1 Trav Almanza MD MD ec2 Leti Bennett RN RN noe6 Leonora Gay RN mb9 Kimberlee Spears cp4 Corrections: (The following items were deleted from the chart) 19:41 19:07 ec2 rv1
--- NOTE | 2024-06-23 19:07 | ER ---
Nurse's Notes [facility] Name: Dominga Gutierrez Age: 73 yrs Sex: Female : 1950 Arrival Date: 06/23/2024 Time: 16:32 Bed 8 Private MD: Diagnosis: Rectal Pain;Rectal Inflammation Presentation: 06/23 16:56 Chief complaint: Patient states: Rectal pain that has been ongoing for 3 weeks, worse ph today, seen in Dr Berg's office and was instructed to come to ED. Coronavirus screen: Vaccine status: Patient reports receiving the 2nd dose of the covid vaccine. Ebola Screen: No symptoms or risks identified at this time. Initial Sepsis Screen: Does the patient meet any 2 criteria? No. Patient's initial sepsis screen is negative. Does the patient have a suspected source of infection? No. Patient's initial sepsis screen is negative. Risk Assessment: Do you want to hurt yourself or someone else? Patient reports no desire to harm self or others. Onset of symptoms was June 23, 2024. 16:56 Method Of Arrival: Ambulatory ph 16:56 Acuity: NATHAN 3 ph Historical: - Allergies: 16:57 Sulfa; ph 16:57 Tape; ph - PMHx: 16:57 GERD; Hypertension; Retinal detachment August 2015; ph - Immunization history:: Adult Immunizations unknown. - Infectious Disease History:: Denies. - Social history:: Smoking status: unknown. Screenin:20 [facility] ED Fall Risk Assessment (Adult) History of falling in the last 3 months, ar6 including since admission No falls in past 3 months (0 pts) Confusion or Disorientation No (0 pts) Intoxicated or Sedated No (0 pts) Impaired Gait No (0 pts) Mobility Assist Device Used No (0 pt) Altered Elimination No (0 pt) Score/Fall Risk Level 0 - 2 = Low Risk. Abuse screen: Denies threats or abuse. Denies injuries from another. Nutritional screening: No deficits noted. Tuberculosis screening: No symptoms or risk factors identified. Assessment: 17:20 General: Appears in no apparent distress. uncomfortable, Behavior is calm, cooperative, ar6 appropriate for age. Pain: Complains of pain in buttocks Pain does not radiate. Pain currently is 10 out of 10 on a pain scale. Quality of pain is described as pressure, sharp, shooting, Pain began gradually, Is continuous. Neuro: Level of Consciousness is awake, alert, obeys commands, Oriented to person, place, time, situation, [employer] Siding Mechanic are equal bilaterally. Cardiovascular: Capillary refill < 3 seconds Patient's skin is warm and dry. Respiratory: Airway is patent. GI: Abdomen is round non-distended, Abd is soft and non tender X 4 quads. pt. reports, "I have a history of hemorroids. I went to Dr. Berg today, but he could not examine me because the pain was too intense, so he could not examine me. He told me to come to the ER.". : No signs and/or symptoms were reported regarding the genitourinary system. EENT: Oral mucosa is moist. Derm: Skin is intact, is healthy with good turgor, Skin is dry, Skin is pink, warm \\T\\ dry. Musculoskeletal: No signs and/or symptoms reported regarding the musculoskeletal system. 18:21 Reassessment: No changes from previously documented assessment. Patient and/or family mb9 updated on plan of care and expected duration. Pain level reassessed. Patient is alert, oriented x 3, equal unlabored respirations, skin warm/dry/pink. 19:45 General: Appears uncomfortable, Behavior is calm, cooperative. Pain: Complains of pain ha1 in buttocks Pain does not radiate. Pain currently is 9 out of 10 on a pain scale. Quality of pain is described as Pain began gradually. Neuro: Level of Consciousness is awake, alert, obeys commands, Oriented to person, place, time, situation, As[employer] Siding Mechanic are equal bilaterally. Cardiovascular: Patient's skin is warm and dry. Respiratory: Airway is patent Respiratory effort is even, unlabored, Respiratory pattern is regular, symmetrical. 20:12 Reassessment: Patient and/or family updated on plan of care and expected duration. Pain ha1 level reassessed. Patient is alert, oriented x 3, equal unlabored respirations, skin warm/dry/pink. Vital Signs: 16:56 BP 155 / 66; Pulse 67; Resp 18; Temp 97.9; Pulse Ox 98% on R/A; Weight 100.7 kg; Height ph 5 ft. 2 in. ; 17:20 BP 146 / 67; Pulse 77; Resp 18; Temp 98.1; Pulse Ox 100% on R/A; Weight 100.24 kg; ar6 Height 5 ft. 2 in. ; Pain 10/10; 18:21 BP 149 / 66; Pulse 60; Resp 18; Pulse Ox 97% ; mb9 19:30 BP 147 / 70; Pulse 60; Resp 18; Pulse Ox 95% on R/A; cp4 20:43 BP 126 / 58; Pulse 72; Resp 18; Temp 98.1; Pulse Ox 98% ; cp4 17:20 Body Mass Index 40.42 (100.24 kg, 157.48 cm) ar6 17:20 Pain Scale: Adult ar6 ED Course: 16:34 Patient arrived in ED. mg5 16:38 Trav Almanza MD is Attending Physician. ec2 16:50 Radiology exam delayed due to IV insertion attempt and/or patient not having nj appropriate IV at this time. 16:51 Radiology exam delayed due to lab results not completed at this time. (BUN/Creatinine). nj 16:57 Triage completed. ph 16:58 Arm band placed on Patient placed. ph 17:05 Leonora Gay, RN is Primary Nurse. mb9 17:11 Primary Nurse role handed off by Leonora Gay, GERMANIA ar6 17:11 Leti Bennett, RN is Primary Nurse. ar6 17:20 No apparent distress. Awaiting lab results, Awaiting radiology results. ar6 17:20 Patient has correct armband on for positive identification. Placed in gown. Bed in low ar6 position. Call light in reach. Side rails up X2. Provided Education on: pain medication and to utilize the call light; pt. verbalized understanding. clinical research monitor on. Pulse ox on. NIBP on. Door closed. Noise minimized. Lights dimmed. Warm blanket given. Pillow given. Head of bed lowered. Turned to left side. 17:20 Inserted saline lock: 20 gauge in left antecubital area, using aseptic technique. Blood ar6 collected. Flushed with 10 mL NS. 17:38 CBC with Diff Sent. ar6 17:38 CMP Sent. ar6 17:38 Lipase Sent. ar6 18:[address] via stretcher. mb9 18:28 CT Abd/Pelvis - IV Contrast Only In Process Unspecified. EDMS 19:07 Robbie Medina MD is Hospitalizing Provider. ec2 20:14 No provider procedures requiring assistance completed. IV discontinued, intact, ha1 bleeding controlled, No redness/swelling at site. Pressure dressing applied. Administered Medications: 17:20 Drug: NS 0.9% IV 1000 ml IV at 1 bolus Per protocol; 1000 mL bolus Route: IV; Rate: 1 ar6 bolus; Site: left antecubital; 18:24 Follow up: Response: No adverse reaction; IV Status: Completed infusion mb9 17:20 Drug: morphine IVP or IV 4 mg IVP once over 4 mins Route: IVP; Infused Over: 4 mins; ar6 Site: left antecubital; 18:24 Follow up: Response: No adverse reaction mb9 17:20 Drug: Ondansetron IVP 4 mg IVP once; over 2 minutes Route: IVP; Site: left antecubital; ar6 18:24 Follow up: Response: No adverse reaction mb9 17:20 Drug: NS 0.9% IV 1000 ml IV at 1 bolus Per protocol; 1000 mL bolus Route: IV; Rate: 1 ar6 bolus; Site: left antecubital; 18:23 Follow up: Response: No adverse reaction; IV Status: Completed infusion mb9 19:16 Drug: morphine IVP or IV 4 mg IVP once over 4 mins Route: IVP; Infused Over: 4 mins; ha1 Site: right antecubital; 19:56 Follow up: Response: No adverse reaction; Pain is decreased cp4 19:18 Drug: Piperacillin-Tazobactam IVPB 3.375 grams IVPB once over 60 mins; (mix in NS 100 ha1 mL) Route: IVPB; Infused Over: 60 mins; Site: right antecubital; 19:56 Follow up: Response: No adverse reaction; IV Status: Completed infusion cp4 Medication: 17:20 VIS not applicable for this client. ar6 Outcome: 19:07 Decision to Hospitalize by Provider. ec2 20:44 Admitted to Med/surg accompanied by tech, via stretcher, with chart, cp4 20:44 Condition: stable 20:44 Instructed on the need for admit, 20:44 Patient left the ED. cp4 Signatures: Dispatcher [facility] Nani Watson RN RN ph Jordan, Nathan nj Ayala, Heidy, RN RN ha1 Leonora Gay RN RN mb9 Ellen Anton mg5 Trav Almanza MD MD ec2 Kimberlee Spears cp4 Leti Bennett RN RN ar6 Corrections: (The following items were deleted from the chart) 20:16 19:45 : Reports pain in suprapubic area flank(s), ha1 ha1
[2024-06-23] MEDS ORDERED: PIPERACIL/TAZO 3.375 GM VIAL IV ONE (19:09)
[2024-06-23] MEDS ORDERED: NA CHLORIDE 0.9% 100 ML ONE (19:09)
[2024-06-23] MEDS ORDERED: ACETAMINOPHEN 325 MG TABLET PO PRN (19:26)
--- NOTE | 2024-06-23 19:31 | P.HP ---
Certification for Inpatient Patient admitted to: Inpatient With expected LOS: >2 Midnights Practitioner: I am a practitioner with admitting privileges, knowledge of patient current condition, hospital course, and medical plan of care. Services: Services provided to patient in accordance with Admission requirements found in Title 42 Section 412.3 of the Code of Federal Regulations Patient History Date of Service: 06/23/24 Reason for admission: Rectal Pain History of Present Illness: 73 yrs old female with past medical history of GERD, HTN,Retinal Detachment came with rectal pain which has been going for 2-3 days . Patient arrives today for evaluation of rectal pain. Patient reports that she was seen at Dr. Oropeza's office and was told to come to the emergency department for evaluation. Patient reports rectal pain worsening over the past several weeks. Reports no fevers or chills, nausea or vomiting. . Patient was assessed in the admitted for further management and surgical consult Allergies Tetanus Vaccines and Toxoid [Tetanus] Allergy (Mild, Verified 05/02/19 16:43) Rash Sulfa (Sulfonamide Antibiotics) [Sulfa(Sulfonamide Antibiotics)] Allergy (Unknown, Verified 05/02/19 16:43) Shortness of breath ciprofloxacin Allergy (Verified 05/02/19 16:43) Shortness of breath Medipore tape Adverse Reaction (Uncoded 05/02/19 16:43) Itching/Hives/Rash Home medications list reviewed: Yes Home Medications: Aspirin [Mark Chewable Aspirin] 81 mg PO DAILY 05/02/19 Cholecalciferol (Vitamin D3) [Vitamin D3] 2,000 unit PO DAILY 05/02/19 Docusate [Colace Cap*] 100 mg PO DAILY 05/02/19 Esomeprazole Mag Trihydrate [Nexium] 20 mg PO BID 05/02/19 Meclizine HCl 25 mg PO DAILY 05/02/19 Melatonin 3 mg PO BEDTIME 05/02/19 Sertraline [Zoloft*] 50 mg PO DAILY 05/02/19 Spironolact/Hydrochlorothiazid [Spironolactone-Hctz 25-25 Tab] 1 tab PO DAILY 05/02/19 carvediloL [Coreg*] 3.125 mg PO BID 05/02/19 Ascorbic Acid [Vitamin C*] 500 mg PO DAILY #30 07/12/22 Atorvastatin Calcium [Lipitor] 40 mg PO DAILY #30 07/12/22 - Past Medical/Surgical History Diabetic: No Past Medical History: Reviewed- Non-Contributory -: HTN -: claustrophobic Past Surgical History: Reviewed- Non-Contributory -: Cholecystectomy -: Hysterectomy -: L knee repair -: Appendectomy -: R ankle repair -: sinus surg. Psychosocial/ Personal History: Patient lives at home with her . - Family History Father -: Heart disease, Cancer Notes: from colon cancer - Social History Smoking Status: Never smoker Alcohol use: Yes CD- Drugs: No Caffeine use: Yes Review of Systems 10-point ROS is otherwise unremarkable Physical Examination - Vital Signs Temperature: 98.2 F Blood Pressure: 136/78 Pulse: 78 Respirations: 18 Pulse Ox (%): 94 - Physical Exam General: Alert, In no apparent distress, Oriented x3 HEENT: Atraumatic, Normocephalic Neck: Supple, JVD not distended Respiratory: Clear to auscultation bilaterally, Normal air movement Cardiovascular: Regular rate/rhythm, Normal S1 S2 Capillary refill: <2 Seconds Gastrointestinal: Soft and benign, Non-distended, W/out hepatosplenomegaly Musculoskeletal: No clubbing, No swelling Integumentary: No rashes, No significant lesion Neurological: Normal speech, Normal strength at 5/5 x4 extr, Cranial nerves 3-12 intact, Normal reflexes 2+ Lymphatics: No axilla or inguinal lymphadenopathy - Studies Laboratory Data (last 24 hrs) 06/23/24 06/23/24 17:20 17:20 WBC 6.80 Hgb 13.7 Hct 41.8 Plt Count 137 L Sodium 140 Potassium 3.5 BUN 8 Creatinine 0.70 Glucose 115 H Total Bilirubin 0.7 AST 73 H ALT 85 H Alkaline Phosphatase 92 Lipase 21 Assessment and Plan - Plan Proctitis Early rectal inflammation/abscess Pain control IV antibiotics started Surgical consult N.p.o. postmidnight for possible incision and drainage if needed Hypertension Continue home medications Titrate as needed GERD Continue PPI GI/DVT prophylaxis Advanced directive full code Discharge Plan: Home Plan to discharge in: 48 Hours - Advance Directives Does patient have a Living Will: No Does patient have a Durable POA for Healthcare: No - Code Status/Comfort Care Code Status: Full Code Time Spent Managing Pts Care (In Minutes): 48
[2024-06-23] MEDS: PIPER TAZO 3.375 GM in NA CHLORIDE 0.9% 100 ML IV SCH (20:00)
[2024-06-23 21:21] VITALS: BMI 40.4
[2024-06-23] MEDS: NA CHLORIDE 0.9% 1,000 ML IV SCH (22:11)
[2024-06-23] MEDS: HYDROCODONE/APAP 5/325 MG TAB PO PRN (22:11)
[2024-06-24] MEDS: MORPHINE 2 MG/ML SYR IV PRN (02:35)
[2024-06-24] MEDS: ONDANSETRON 4 MG/2 ML VIAL IV PRN (02:35)
--- NOTE | 2024-06-24 06:27 | P.PN ---
Date of Service: 06/24/24 subjective Was admitted for rectal pain, was referred to the ER by GI for proctitis N.p.o. for surgery to eval Review of Systems 10-point ROS is otherwise unremarkable Physical Examination - Vital Signs reviewed - Physical Exam General: Alert, In no apparent distress, Oriented x3 HEENT: Atraumatic, Normocephalic Neck: Supple, JVD not distended Respiratory: Clear to auscultation bilaterally, Normal air movement Cardiovascular: Regular rate/rhythm, Normal S1 S2 Capillary refill: <2 Seconds Gastrointestinal: Soft and benign, Non-distended, W/out hepatosplenomegaly Musculoskeletal: No clubbing, No swelling Integumentary: No rashes, No significant lesion Neurological: Normal speech, Normal strength at 5/5 x4 extr, Cranial nerves 3-12 intact, Normal reflexes 2+ Lymphatics: No axilla or inguinal lymphadenopathy Assessment and Plan - Plan Proctitis Early rectal inflammation/abscess Pain control IV antibiotics, steroids Surgical consult N.p.o. postmidnight for possible incision and drainage if needed Hypertension Continue home medications Titrate as needed GERD Continue PPI GI/DVT prophylaxis Lovenox Advanced directive full code Discharge Plan: Home Plan to discharge in: 48 Hours - Advance Directives Does patient have a Living Will: No Does patient have a Durable POA for Healthcare: No - Code Status/Comfort Care Code Status: Full Code Time Spent Managing Pts Care (In Minutes): 35 <Jennifer Young - Last Filed: 06/24/24 14:37> Patient was seen and examined. Events of the last 24 hours have been noted. Spoke with with BING regarding patient's clinical picture after evaluating and examining the patient independently. I performed a substantial part of the MDM during this patient's care today. I personally made or approved the documented management plan and acknowledge its risk of complications. I agree with the findings and documentation provided in the BING's notes. Seen by general surgery and possible surgical intervention in AM. N.p.o. after midnight. Continue with IV antibiotics and pain control. <Jolie Moody - Last Filed: 06/28/24 02:28>
[2024-06-24 07:18] LABS: Absolute Eosinophils 0.2 K/uL (0-0.5); Absolute Lymphocytes (CBC) 1.7 K/uL (0.7-4.9); Absolute Monocytes 0.6 K/uL (0.1-1.3); Basophils % 0.7 % (0-1.3); Eosinophils % 4.1 % (0-4.4); Hematocrit 35.6 % (36.0-45.0); Hemoglobin 11.5 g/dL (12.0-15.0); Lymphocytes % 37.1 % (15.3-44.8); MCH 28.9 pg (27.0-35.0); MCHC 32.3 g/dL (32.0-36.0); MCV 89.3 fL (80-100); MPV 10.5 fL (7.6-11.3); Monocytes % 13.4 % (3.3-12.3); Neutrophils % 44.7 % (41.7-73.7); Nucleated Red Blood Cells % 0.1 % (0-0); Platelets 108 thou/uL (152-406); RBC Red Blood Cell Count 3.99 M/uL (3.86-4.86); Red Cell Distribution Width 13.9 % (12.1-15.2)
[2024-06-24 07:33] LABS: Albumin 2.8 g/dL (3.4-5.0); Anion Gap 10.4 mEq/L (5.0-15.0); Bilirubin Total 0.5 mg/dL (0.2-1.0); Globulin 2.9 g/dL (2.3-3.5); Potassium 3.4 mEq/L (3.5-5.1); Protein, Total 5.7 g/dL (6.4-8.2)
[2024-06-24] MEDS: ENOXAPARIN 40 MG/0.4 ML SQ SCH (07:39)
[2024-06-24] MEDS: METHYLPREDNISOLONE 125 MG INJ IV ONE (08:44)
[2024-06-24] MEDS: NACHLORIDE 0.45% 1,000 ML IV SCH (08:45)
[2024-06-24] MEDS: KCL 20 MEQ/100 mL IVPB 20 MEQ/100 ML BAG IV SCH (08:45)
[2024-06-24] MEDS: LIDOCAINE JELLY 2% 5 ML SYRINGE TOP ONE (14:08)
[2024-06-24] MEDS: LIDOCAINE HCL/EPINEPHRINE 20 ML MDV ONE (14:08)
[2024-06-24] MEDS: NA CHLORIDE 0.9% 1,000 ML ONE (14:10)
[2024-06-24] MEDS ORDERED: propofoL 200 MG/20 ML VIAL IV ONE ×2 (15:06→15:46)
[2024-06-24] MEDS ORDERED: MIDAZOLAM HCL 2 MG/2 ML INJ ONE (15:06)
[2024-06-24] MEDS ORDERED: FENTANYL CITR 100 MCG/2 ML ONE (15:06)
[2024-06-24] MEDS: LIDOCAINE 2% MPF 5 ML VIAL ONE (15:50)
[2024-06-24] MEDS ORDERED: ONDANSETRON 4 MG/2 ML VIAL ONE (15:55)
[2024-06-24] MEDS ORDERED: dexAMETHasone 4 MG/ML VIAL ONE (15:55)
--- NOTE | 2024-06-24 16:10 | P.OP ---
Preoperative diagnosis: Rectal Pain Postoperative diagnosis: Rectal Pain Primary procedure: Exam under anesthesia Secondary procedure: Hemorrhoidectomy Anesthesia: GETA + Local Estimated blood loss: <10cc Specimen: Hemorrhoids Findings: 2 enlarged hemorrhoids with inflammatory changes - posterior Complications: None Transferred to: Recovery Room Condition: Good
[2024-06-24] MEDS: HYDROMORPHONE HCL 1 MG/ML INJ ONE ×2 (16:30→16:45)
[2024-06-24] MEDS: Ringers Lactate 1,000 ML IV ONE (16:38)
[2024-06-24] MEDS: ONDANSETRON 4 MG/2 ML VIAL ONE (16:40)
[2024-06-24] MEDS: MEPERIDINE HCL 25 MG/ML SYR ONE (16:40)
--- NOTE | 2024-06-24 16:56 | P.DS ---
Admission Date: 06/23/24 Discharge Date: 06/24/24 Disposition: ROUTINE DISCHARGE Discharge Condition: GOOD Reason for Admission: Rectal Pain Brief History of Present Illness: 73 yrs old female with past medical history of GERD, HTN,Retinal Detachment came with rectal pain which has been going for 2-3 days . Patient arrives today for evaluation of rectal pain. Patient reports that she was seen at Dr. Oropeza's office and was told to come to the emergency department for evaluation. Patient reports rectal pain worsening over the past several weeks. Reports no fevers or chills, nausea or vomiting. . Patient was assessed in the admitted for further management and surgical consult - Physical Exam General: Alert, In no apparent distress, Oriented x3 HEENT: Atraumatic, Normocephalic Neck: Supple, JVD not distended Respiratory: Clear to auscultation bilaterally, Normal air movement Cardiovascular: Regular rate/rhythm, Normal S1 S2 Capillary refill: <2 Seconds Gastrointestinal: Soft and benign, Non-distended, W/out hepatosplenomegaly Musculoskeletal: No clubbing, No swelling Integumentary: No rashes, No significant lesion Neurological: Normal speech, Normal strength at 5/5 x4 extr, Cranial nerves 3-12 intact, Normal reflexes 2+ Lymphatics: No axilla or inguinal lymphadenopathy Hospital Course: 73 yrs old female with past medical history of GERD, HTN,Retinal Detachment came with rectal pain which has been going for 2-3 days . Patient arrives today for evaluation of rectal pain. Patient reports that she was seen at Dr. Oropeza's office and was told to come to the emergency department for evaluation.. Patient was assessed in the admitted for further management and surgical consult, Rectal pain Proctitis-amoxicillin/clavulanate twice daily for 10 days Flagyl twice daily for 10 days As needed analgesics No driving or operating heavy equipment while on narcotics Soft diet 06/24 Surgical evaluation status post hemorrhoidectomy Discharged home on antibiotics, as needed analgesics, follow-up with surgery after discharge Continue home medicines as previously prescribed GOAL: Clear understanding of disease process INSTRUCTIONS: Physician Discharge Instructions: -Follow-up with PCP in 1 to 2 weeks -Please call Dr. Moody at [phone] if any questions regarding hospital stay -Please call nursing station at [phone] if any nursing or medication questions -Return to the emergency room if symptoms worsen Diet: ADA, low sodium Activity: Fall precautions Vital Signs/Physical Exam: Temp Pulse Resp BP Pulse Ox 98.2 F 57 16 139/58 L 96 06/24/24 16:54 06/24/24 16:54 06/24/24 16:54 06/24/24 16:54 06/24/24 12:00 Laboratory Data at Discharge: WBC 4.50 thou/uL (4.3-10.9) 06/24/24 06:39 Hgb 11.5 g/dL (12.0-15.0) L D 06/24/24 06:39 Hct 35.6 % (36.0-45.0) L 06/24/24 06:39 Plt Count 108 thou/uL (152-406) L 06/24/24 06:39 Sodium 146 mEq/L (136-145) H D 06/24/24 06:39 Potassium Cancelled 06/24/24 16:00 BUN 7 mg/dL (7-18) 06/24/24 06:39 Creatinine 0.64 mg/dL (0.55-1.02) 06/24/24 06:39 Glucose 94 mg/dL (74-106) 06/24/24 06:39 Total Bilirubin 0.5 mg/dL (0.2-1.0) 06/24/24 06:39 AST 60 U/L (15-37) H 06/24/24 06:39 ALT 72 U/L (13-56) H 06/24/24 06:39 Alkaline Phosphatase 73 U/L (45-117) D 06/24/24 06:39 Lipase 21 U/L (13-75) 06/23/24 17:20 Home Medications: Aspirin [Mark Chewable Aspirin] 81 mg PO DAILY 05/02/19 Docusate [Colace Cap*] 100 mg PO DAILY 05/02/19 Melatonin 5 mg PO BEDTIME 05/02/19 Sertraline [Zoloft*] 50 mg PO DAILY 05/02/19 carvediloL [Coreg*] 25 mg PO BID 05/02/19 Pantoprazole [Protonix Tab] 40 mg PO BID 06/24/24 Followup: Damon Reina MD [ACTIVE - CAN ADMIT] - ENRIQUE NUNEZ [Primary Care Provider] - Thomas Berg MD [ASSOCIATE-ACTIVE - CAN ADMIT] - Time spent managing pt's care (in minutes): 55
[2024-06-24] MEDS: D5 0.45 NS 1,000 ML IV SCH (19:42)
--- NOTE | 2024-06-24 20:03 | OP ---
Date of Procedure: 06/24/2024 Surgeon: Damon Reina MD, Preoperative Diagnosis: Rectal pain. Postoperative Diagnosis: Rectal pain. Procedure Performed: Exam under anesthesia with hemorrhoidectomy. Anesthesia: General endotracheal plus local with 1% lidocaine with epinephrine. Estimated Blood Loss: Less than 10 cc. Specimen: Hemorrhoids x2. Findings: There were two enlarged hemorrhoids, inflammatory changes near the 7 o'clock position and the 5 o'clock position. Complications: None. Disposition: The patient transferred to recovery room in good condition. Brief History Of Present Illness: The patient is a 73-year-old female who was seen by Dr. Berg in his office yesterday with severe rectal pain, unable to perform an examination as she has had a 2-wee k history of worsening rectal pain. As such, she went to Dr. Berg's office who could not perform a n examination due to her severe rectal pain, and as such, she was sent to the emergency room for eval uation. She had a CT scan of the abdomen, which did not show any obvious drainable collections. She was brought into the hospital at this point and ultimately continued to have bad rectal pain which s he states has been going on for approximately 2 weeks. As such, I opted to perform an exam under ane sthesia given her history to see if any collections were evident or if this was possibly related to h emorrhoids, fissure, or other perianal pathology. Procedure In Detail: After informed consent was obtained, the patient was brought to the operating r oom, prepped and draped in the usual sterile fashion after adequate anesthesia had been achieved. Th e patient remained in lithotomy position. Ultimately, I inserted digital rectal, examination felt th ere to be enlarged thickened hemorrhoids on the posterior aspect of the rectum. I circumferentially palpated this area, ultimately placing a small anoscope in and then I performed sequentially larger a noscope insertions using lubrication until I visualized 2 hemorrhoids which had thickening and rednes s over the top of them at approximately 5 o'clock and 7 o'clock position. Ultimately, I demarcated t hese 2 enlarged hemorrhoids with a cautery down through the skin portions sparing the muscle througho ut and used the LigaSure hand device to remove these 2 hemorrhoids. After these were removed and sen t off for pathologic examination, the area was copiously irrigated. I then reapproximated the tissu e using 3-0 chromic in an interrupted fashion with good approximation of tissues. I then placed more saline and irrigated the perianal area with small amount of Betadine in the area, ultimately repacki ng the anus with Gelfoam soaked in lidocaine 2% jelly and a sterile dressing was placed over top. e patient tolerated the procedure well without incident or complication, transferred to PACU in good condition. All counts were correct at the end of the case. LEE/YEISON Voice ID: [id number] Report ID: [id number]
--- NOTE | 2024-06-24 21:12 | CON ---
Date of Consultation: 06/24/2024 Brief History Of Present Illness: The patient is a 73-year-old female with past medical history of G ERD, hypertension, retinal detachment, and bariatric surgery/Sola-en-Y gastric bypass, who had been h aving ongoing pain for several weeks prior to her presentation to Dr. Berg's office. She noted jese t she tried taking [id number] hemorrhoidal treatment without significant improvement, and as fernandez ch, she went to see Dr. Berg at his clinic whenever her pain continued to worsen. However, she sta darling that her pain got so severe she was unable to tolerate an exam by Dr. Berg, and as such, he rec ommended she come to the emergency room for further evaluation. Dr. Berg and I spoke about the deandra e and I agreed with her presentation to the emergency room and agreed to evaluate the patient for her perianal pain. The patient states that pain got progressively worse over the weeks and has now come to a head with severe pain and she is unable to touch the area. She has not had similar episodes be fore in the past. No sick contacts. No recent travel. No new food exposures. She has no history o f perianal disease that she is aware of or fissures. Past Medical History: Significant for hypertension, claustrophobia. Past Surgical History: Includes cholecystectomy, hysterectomy, LEEP, left knee repair, appendectomy, right ankle surgery, sinus surgery, and a Sola-en-Y gastric bypass. Allergies: TO TETANUS, SULFA, CIPRO, MEDIPORE TAPE. Home Medications: Include aspirin, vitamin D, Colace, esomeprazole, meclizine, melatonin, Zoloft, sp ironolactone, Coreg, vitamin C, and Lipitor. Family History: Significant for heart disease and cancer/colon cancer. She lives at home with her h usband. She denies smoking. Drinks alcohol socially. Denies recreational drug use. Review of Systems: Ten-point review of systems other than HPI, denies. Physical Examination: Vital Signs: At the time of my examination, blood pressure 153/63, pulse is 54, respiratory rate 18, temperature 98.2. SpO2 was 98% on room air. General: She is awake, alert, and oriented. Psychiatric: Appropriate and conversive. HEENT: Normocephalic. Sclerae anicteric. Mucous membranes are moist. Oropharynx clear. Neck: Supple without JVD. Chest: Normal expansion and excursion. Cardiovascular: Regular rate and rhythm. Pulmonary: Clear to auscultation bilaterally. Abdomen: Soft, nontender, nondistended. No rebound. No guarding. No focal peritonitis. Well-heal ed surgical scars were evident. Extremities: No clubbing, cyanosis, or edema. Skin: Warm and dry. Rectal: Unable to be performed secondary to pain. However, visible external hemorrhoids are noted w ith some enlargement, swelling, and redness in the general vicinity. Laboratory Data: She had a laboratory exam which revealed white blood cell count of 6.8, hemoglobin 13.7, hematocrit 41.8, platelet count is 137, neutrophils 71%. Her sodium 140, potassium 3.5, chlori de 105, carbon dioxide 26, BUN 8, creatinine 0.7, glucose 115, calcium is 9.8, AST 73, ALT 85, alkali ne phosphatase was 92, lipase is 21. She had an imaging performed, which included a CT of the abdome n and pelvis which was officially read as diffuse circumferential thickening of the inferior rectum a nd anal region. Direct visualization may be considered. Assessment And Plan: This is a 73-year-old female who comes in with rectal pain/proctitis. 1.IV fluid hydration due to antibiotic coverage. 2.I have explained risks, benefits, and alternatives of exam under anesthesia, possible hemorrhoidec leonid and indicated procedures including, but not limited to, bleeding, infection, damage to surroundi ng tissues, need for further operation and procedures, incontinence, and other unforeseen complicatio ns in the perioperative period including heart attack, blood clot, strokes, and other unforeseen comp lications in the postoperative course as well. The patient displayed understanding of the above-stat ed plan and agrees to proceed as indicated. Thank you for this interesting consult. LEE/YEISON Voice ID: [id number] Report ID: [id number]
[2024-06-24] MEDS: HYDROCODONE/APAP 7.5/325 MG TAB PO PRN (21:36)
[2024-06-25 06:32] LABS: Absolute Lymphocytes (CBC) 0.9 K/uL (0.7-4.9); Absolute Monocytes 0.4 K/uL (0.1-1.3); Absolute Neutrophil 4.3 K/uL (1.8-8.0); Basophils % 0.3 % (0-1.3); Hematocrit 35.7 % (36.0-45.0); Hemoglobin 11.9 g/dL (12.0-15.0); Lymphocytes % 16.2 % (15.3-44.8); MCH 29.4 pg (27.0-35.0); MCHC 33.2 g/dL (32.0-36.0); MCV 88.5 fL (80-100); MPV 10.4 fL (7.6-11.3); Monocytes % 7.1 % (3.3-12.3); Neutrophils % 76.4 % (41.7-73.7); Platelets 104 thou/uL (152-406); RBC Red Blood Cell Count 4.04 M/uL (3.86-4.86); Red Cell Distribution Width 13.8 % (12.1-15.2)
[2024-06-25 07:03] LABS: Anion Gap 9.7 mEq/L (5.0-15.0); Magnesium 1.7 mg/dL (1.6-2.4); Potassium 3.7 mEq/L (3.5-5.1)
[2024-06-25] MEDS: HYDROMORPHONE HCL 0.5 MG/0.5 ML INJ IV ONE ×2 (08:14→09:45)
[2024-06-25] MEDS: MAGNESIUM SULFATE 1 gm IVPB 1 GM/100 ML BAG IV SCH (08:52)
[2024-06-25] MEDS: POTASSIUM CL SA 10 MEQ TAB PO SCH (08:52)
[2024-06-25] MEDS: HYDROCODONE/APAP 10/325 TAB PO PRN (12:57)
--- NOTE | 2024-06-25 14:06 | P.PN ---
Date of Service: 06/25/24 subjective Intractable pain Advance diet to full liquid Review of Systems 10-point ROS is otherwise unremarkable Physical Examination - Vital Signs reviewed - Physical Exam General: Alert, In no apparent distress, Oriented x3 facial grimacing due to pain HEENT: Atraumatic, Normocephalic Neck: Supple, JVD not distended Respiratory: Clear to auscultation bilaterally, Normal air movement Cardiovascular: Regular rate/rhythm, Normal S1 S2 Capillary refill: <2 Seconds Gastrointestinal: Soft and benign, Non-distended, W/out hepatosplenomegaly Musculoskeletal: No clubbing, No swelling Integumentary: No rashes, No significant lesion Neurological: Normal speech, Normal strength at 5/5 x4 extr, Cranial nerves 3-12 intact, Normal reflexes 2+ Lymphatics: No axilla or inguinal lymphadenopathy Assessment and Plan - Plan Intractable pain Proctitis Early rectal inflammation/abscess Hemorrhoidectomy Pain control IV antibiotics, steroids Surgical consult possible incision and drainage if needed 06/25 Increased IV and p.o. analgesics, Diet advance to full liquid Hypertension Continue home medications Titrate as needed GERD Continue PPI GI/DVT prophylaxis Lovenox Advanced directive full code Discharge Plan: Home Plan to discharge in: 48 Hours - Advance Directives Does patient have a Living Will: No Does patient have a Durable POA for Healthcare: No - Code Status/Comfort Care Code Status: Full Code Time Spent Managing Pts Care (In Minutes): 35 <Jennifer Young - Last Filed: 06/25/24 14:05> Patient was seen and examined. Events of the last 24 hours have been noted. Spoke with with BING regarding patient's clinical picture after evaluating and examining the patient independently. I performed a substantial part of the MDM during this patient's care today. I personally made or approved the documented management plan and acknowledge its risk of complications. I agree with the findings and documentation provided in the BING's notes. Patient seen by general surgery and taken to the operating room. Patient status post hemorrhoidectomy. Patient still having significant degree of pain. Seems like out of proportion to her medical issues. Will reassess in the morning. <Jolie Moody - Last Filed: 06/28/24 02:29>
[2024-06-25] MEDS: HYDROMORPHONE HCL 1 MG/ML INJ IV PRN (14:28)
[2024-06-25] MEDS: DIPHENHYDRAMINE 25 MG TAB/CAP PO PRN (16:56)
[2024-06-25] MEDS: LIDOCAINE HCL JELLY 2% 6 ML SYRINGE TOP ONE (16:56)
[2024-06-26 07:52] LABS: Absolute Basophils 0.1 K/uL (0-0.5); Absolute Eosinophils 0.3 K/uL (0-0.5); Absolute Lymphocytes (CBC) 1.9 K/uL (0.7-4.9); Absolute Monocytes 0.7 K/uL (0.1-1.3); Absolute Neutrophil 2.7 K/uL (1.8-8.0); Basophils % 1.1 % (0-1.3); Eosinophils % 5.5 % (0-4.4); Hematocrit 36.4 % (36.0-45.0); Hemoglobin 11.7 g/dL (12.0-15.0); Lymphocytes % 34.5 % (15.3-44.8); MCHC 32.2 g/dL (32.0-36.0); MCV 90.1 fL (80-100); MPV 10.6 fL (7.6-11.3); Monocytes % 11.7 % (3.3-12.3); Neutrophils % 47.2 % (41.7-73.7); Platelets 113 thou/uL (152-406); RBC Red Blood Cell Count 4.04 M/uL (3.86-4.86); Red Cell Distribution Width 14.2 % (12.1-15.2)
[2024-06-26 08:05] LABS: Anion Gap 5.2 mEq/L (5.0-15.0); Magnesium 1.9 mg/dL (1.6-2.4); Potassium 3.2 mEq/L (3.5-5.1)
[2024-06-26] MEDS: OXYBUTYNIN ER 5 MG TAB PO SCH (11:06)
[2024-06-26] MEDS: HYDROMORPHONE HCL 2 MG/ML inj IV ONE (11:06)
[2024-06-26 13:13] LABS: RPR (Rapid Plasma Reagin) NON-REACT (NON-REACT)
[2024-06-26] MEDS: POTASSIUM 25 MEQ EFFERV TAB PO ONE (13:52)
--- NOTE | 2024-06-26 14:19 | P.PN ---
Date of Service: 06/26/24 subjective Deleon placed for urinary retention, Reports moderate pain, CT of the abdomen ordered for intractable pain Review of Systems 10-point ROS is otherwise unremarkable Physical Examination - Vital Signs reviewed - Physical Exam General: Alert, In no apparent distress, Oriented x3 facial grimacing due to pain HEENT: Atraumatic, Normocephalic Neck: Supple, JVD not distended Respiratory: Clear to auscultation bilaterally, unlabored Cardiovascular: Regular rate/rhythm, Normal S1 S2 Capillary refill: <2 Seconds Gastrointestinal: Soft and benign, Non-distended, W/out hepatosplenomegaly Musculoskeletal: No clubbing, No swelling Integumentary: No rashes, No significant lesion Neurological: Normal speech, Normal strength at 5/5 x4 extr, Cranial nerves 3-12 intact, Normal reflexes 2+ Assessment and Plan - Plan Intractable pain Proctitis Early rectal inflammation/abscess Hemorrhoidectomy Pain control IV antibiotics, steroids Surgical consult possible incision and drainage if needed 06/25 Increased IV and p.o. analgesics, Diet advance to full liquid Acute urinary retention Deleon placed, Ditropan ordered UA ordered, urine culture, labs ordered to evaluate because of proctitis Hypertension Continue home medications Titrate as needed GERD Continue PPI GI/DVT prophylaxis Lovenox Advanced directive full code Discharge Plan: Home Plan to discharge in: 48 Hours - Advance Directives Does patient have a Living Will: No Does patient have a Durable POA for Healthcare: No - Code Status/Comfort Care Code Status: Full Code Time Spent Managing Pts Care (In Minutes): 35 <Jennifer Young - Last Filed: 06/26/24 14:17> Patient was seen and examined. Events of the last 24 hours have been noted. Spoke with with BING regarding patient's clinical picture after evaluating and examining the patient independently. I performed a substantial part of the MDM during this patient's care today. I personally made or approved the documented management plan and acknowledge its risk of complications. I agree with the findings and documentation provided in the BING's notes. Patient doing well postop day #1. However, still having some pain. Continue with stool softener and will straight cath patient. DC Deleon catheter. <Jolie Moody - Last Filed: 06/28/24 02:30>
--- NOTE | 2024-06-26 19:03 | RAD REPORT ---
EXAM DESCRIPTION: CTAbdomen Pelvis W Contrast - 06/26/2024 6:49 pm CLINICAL HISTORY: Abdominal pain. abdominal pain COMPARISON: <Comparisons> TECHNIQUE: Biphasic CT imaging of the abdomen and pelvis was performed with 100 ml non-ionic IV cont rast. All CT scans are performed using dose optimization technique as appropriate and may include automated exposure control or mA/KV adjustment according to patient size. FINDINGS: The lung bases are clear.Postsurgical changes about the stomach. The liver, spleen, pancreas, adrenal glands and kidneys are within normal limits. No bowel obstruction, free air, free fluid or abscess. The appendix is normal. No evidence of signi ficant lymphadenopathy. No suspicious bony findings. IMPRESSION: No acute intra-abdominal or pelvic finding.
[2024-06-27 01:32] LABS: Specific Gravity 1.007 (1.005-1.030); Sqamous Epithelial <5 /HPF (None Seen); Urine Bacteria <20 /HPF (<20); Urine Bilirubin NEGATIVE (Negative); Urine Blood Negative (Negative); Urine Clarity Turbid (Clear); Urine Color Colorless (Yellow); Urine Culture Reflex Order NOT NEEDED; Urine Glucose NEGATIVE (Negative); Urine Ketones NEGATIVE (Negative); Urine Microscopic Reflex YN ORDER UMIC; Urine Mucus Slight /HPF (None Seen); Urine Nitrite NEGATIVE (Negative); Urine Protein NEGATIVE (Negative); Urine RBC <5 /HPF (None Seen); Urine Urobilinogen Normal (Normal); Urine WBC <5 /HPF (<5); Urine pH 5.5 (5.0-7.0)
[2024-06-27 06:09] LABS: Absolute Eosinophils 0.3 K/uL (0-0.5); Absolute Lymphocytes (CBC) 1.3 K/uL (0.7-4.9); Absolute Monocytes 0.6 K/uL (0.1-1.3); Absolute Neutrophil 2.7 K/uL (1.8-8.0); Basophils % 0.5 % (0-1.3); Eosinophils % 5.9 % (0-4.4); Hematocrit 34.3 % (36.0-45.0); Hemoglobin 11.2 g/dL (12.0-15.0); Lymphocytes % 26.2 % (15.3-44.8); MCHC 32.5 g/dL (32.0-36.0); MCV 89.2 fL (80-100); Monocytes % 12.6 % (3.3-12.3); Neutrophils % 54.8 % (41.7-73.7); Platelets 95 thou/uL (152-406); RBC Red Blood Cell Count 3.84 M/uL (3.86-4.86); Red Cell Distribution Width 14.7 % (12.1-15.2)
[2024-06-27 06:38] LABS: Albumin 2.7 g/dL (3.4-5.0); Bicarbonate 31 mEq/L (21-32); Glomerular Filtration Rate 98 ml/min (=/>90); Glucose Level 116 mg/dL (74-106); Magnesium 1.8 mg/dL (1.6-2.4); NT PRO-BNP 1418 pg/mL (<125); Phosphorus 2.6 mg/dL (2.5-4.9); Sodium Level 144 mEq/L (136-145)
[2024-06-27 06:49] LABS: BUN Blood Urea Nitrogen < 3 mg/dL (7-18)
[2024-06-27] MEDS ORDERED: BISACODYL E.C. 5 MG TAB PO PRN (07:04)
[2024-06-27 07:59] LABS: Blood Morphology Comment NOT SEEN (NOT SEEN); Platelet Estimate ADEQ; White Blood Cell Scan OK (OK)
--- NOTE | 2024-06-27 09:14 | P.PN ---
Date of Service: 06/27/24 subjective Deleon discontinued and Deleon replaced for urinary retention, antispasmodic ordered Reports moderate pain, CT of the abdomen no acute finding ordered for intractable pain Review of Systems 10-point ROS is otherwise unremarkable Physical Examination - Vital Signs reviewed - Physical Exam General: Alert, In no apparent distress, Oriented x3 facial grimacing due to pain HEENT: Atraumatic, Normocephalic Neck: Supple, JVD not distended Respiratory: Clear to auscultation bilaterally, unlabored Cardiovascular: Regular rate/rhythm, Normal S1 S2 Capillary refill: <2 Seconds Gastrointestinal: Soft and benign, Non-distended, W/out hepatosplenomegaly, perirectal tenderness status post hemorrhoidectomy Musculoskeletal: No clubbing, No swelling Integumentary: No rashes, No significant lesion , Deleon to bedside drainage Neurological: Normal speech, Normal strength at 5/5 x4 extr, Cranial nerves 3-12 intact, Normal reflexes 2+ Assessment and Plan - Plan Intractable pain Proctitis Early rectal inflammation/abscess Hemorrhoidectomy Pain control IV antibiotics, steroids Surgical consult possible incision and drainage if needed 06/25 Increased IV and p.o. analgesics, Diet advance to full liquid Reports moderate pain, repeat 06/26 CT of the abdomen no acute finding ordered for intractable pain STI labs ordered, HSV, RPR, HIV, to try to find cause of proctitis, External-perirectal tenderness status post external hemorrhoidectomy Acute urinary retention Deleon placed, Ditropan ordered UA ordered, urine culture, labs ordered to evaluate because of proctitis Deleon discontinued and Deleon replaced for urinary retention, antispasmodic ordered Hypertension Continue home medications Titrate as needed GERD Continue PPI GI/DVT prophylaxis Lovenox Advanced directive full code Discharge Plan: Home Plan to discharge in: 48 Hours - Advance Directives Does patient have a Living Will: No Does patient have a Durable POA for Healthcare: No - Code Status/Comfort Care Code Status: Full Code Time Spent Managing Pts Care (In Minutes): 35 <Jennifer Young - Last Filed: 06/27/24 09:11> Patient was seen and examined. Events of the last 24 hours have been noted. Spoke with with BING regarding patient's clinical picture after evaluating and examining the patient independently. I performed a substantial part of the MDM during this patient's care today. I personally made or approved the documented management plan and acknowledge its risk of complications. I agree with the findings and documentation provided in the BING's notes. Patient overall has improved somewhat. Still has some pressure down from her pubic region. Denies any discharge. Straight cath as needed. Would avoid replacing Deleon catheter at this time. Continuing holding off on pain medication is much as tolerated. <Jolie Moody - Last Filed: 06/28/24 02:33>
[2024-06-27] MEDS: LIDOCAINE JELLY 2%- 5 ML TUBE TOP PRN (14:03)
[2024-06-27] MEDS: DOCUSATE NA 100 MG CAP PO SCH (20:38)
[2024-06-28 06:13] LABS: Absolute Eosinophils 0.2 K/uL (0-0.5); Absolute Lymphocytes (CBC) 1.6 K/uL (0.7-4.9); Absolute Monocytes 0.6 K/uL (0.1-1.3); Absolute Neutrophil 3.1 K/uL (1.8-8.0); Basophils % 0.7 % (0-1.3); Eosinophils % 3.9 % (0-4.4); Hematocrit 38.1 % (36.0-45.0); Hemoglobin 12.7 g/dL (12.0-15.0); Lymphocytes % 29.5 % (15.3-44.8); MCH 29.5 pg (27.0-35.0); MCHC 33.4 g/dL (32.0-36.0); MCV 88.4 fL (80-100); MPV 9.5 fL (7.6-11.3); Monocytes % 10.1 % (3.3-12.3); Neutrophils % 55.8 % (41.7-73.7); Platelets 118 thou/uL (152-406); RBC Red Blood Cell Count 4.31 M/uL (3.86-4.86); Red Cell Distribution Width 14.1 % (12.1-15.2)
[2024-06-28 06:58] LABS: Anion Gap 6.7 mEq/L (5.0-15.0); Bicarbonate 32 mEq/L (21-32); Glomerular Filtration Rate 100 ml/min (=/>90); Glucose Level 97 mg/dL (74-106); Magnesium 1.7 mg/dL (1.6-2.4); NT PRO-BNP 2690 pg/mL (<125); Phosphorus 2.2 mg/dL (2.5-4.9); Potassium 2.7 mEq/L (3.5-5.1); Sodium Level 142 mEq/L (136-145)
[2024-06-28 06:59] LABS: BUN Blood Urea Nitrogen < 3 mg/dL (7-18)
[2024-06-28] MEDS ORDERED: POTASSIUM 25 MEQ EFFERV TAB PO ONE (08:15)
[2024-06-28] MEDS: TAMSULOSIN 0.4 MG SR CAP PO SCH (09:34)
[2024-06-28] MEDS: POTASSIUM PHOS 30 MM in NA CHLORIDE 0.9% 500 ML IV SCH (09:34)
[2024-06-28] MEDS: POTASSIUM 25 MEQ EFFERV TAB PO SCH (09:34)
[2024-06-28] MEDS: OXYBUTYNIN ER 5 MG TAB PO SCH (09:35)
--- NOTE | 2024-06-28 16:21 | P.PN ---
Subjective Date of Service: 06/28/24 Chief Complaint: Rectal Pain Pt is resting comfortably in bed. Pt has urinary retention but she refused kingsley catheter placement. She voided a little bit by herself. No other complaints. Review of Systems General: Unremarkable Eyes: Unremarkable ENT: Unremarkable Respiratory: Unremarkable Cardiovascular: Unremarkable Gastrointestinal: Unremarkable Genitourinary: Retention Musculoskeletal: Unremarkable Integumentary: Unremarkable Neurological: Unremarkable Lymphatics: Unremarkable Physical Examination - Vital Signs Temperature: 97.3 F Blood Pressure: 169/72 Pulse: 62 Respirations: 16 Pulse Ox (%): 98 - Physical Exam General: Alert, In no apparent distress, Oriented x3 HEENT: Atraumatic, Normocephalic, PERRLA Neck: Supple, 2+ carotid pulse no bruit, JVD not distended Respiratory: Clear to auscultation bilaterally, Normal air movement Cardiovascular: No edema, Normal pulses, Regular rate/rhythm, Normal S1 S2 Capillary refill: <2 Seconds Gastrointestinal: Normal bowel sounds, Soft and benign, Non-distended Musculoskeletal: No clubbing, No swelling, No contractures Integumentary: No rashes, No breakdown, No significant lesion Neurological: Normal gait, Normal speech, Normal strength at 5/5 x4 extr Lymphatics: No axilla or inguinal lymphadenopathy Assessment And Plan - Plan Intractable pain due to Proctitis / Early rectal inflammation/abscess / Hemorrhoidectomy: Will continue IVF, prn pain med, iv abx and steroid. Gen surgeon is following. Repeat 06/26 CT of the abdomen shows no acute finding. Will r/o STI. Labs ( HSV, RPR, HIV) are pending Acute urinary retention: Pt refused kingsley catheter placement. She voided a little bit by herself. Continue Ditropan Hypertension: Continue home med Hypoklaemia: K is 2.7. Will replete and monitor. Morbid obesity: Pt was advised to lose weight. GERD: Continue PPI GI ppx: protonix DVT ppx: Lovenox DIspo: pending hospital course
[2024-06-28] MEDS: HYDROCORTISONE ACETATE 25MG SUPP PR PRN (17:53)
[2024-06-28] MEDS: POTASSIUM 25 MEQ EFFERV TAB PO ONE (22:21)
[2024-06-28 22:59] VITALS: O2SAT 94
[2024-06-29 07:08] LABS: Absolute Eosinophils 0.1 K/uL (0-0.5); Absolute Lymphocytes (CBC) 1.3 K/uL (0.7-4.9); Absolute Monocytes 0.6 K/uL (0.1-1.3); Basophils % 0.5 % (0-1.3); Eosinophils % 1.9 % (0-4.4); Hemoglobin 11.7 g/dL (12.0-15.0); MCH 29.3 pg (27.0-35.0); MCHC 33.4 g/dL (32.0-36.0); MCV 87.7 fL (80-100); MPV 9.5 fL (7.6-11.3); Monocytes % 11.8 % (3.3-12.3); Neutrophils % 59.8 % (41.7-73.7); Platelets 124 thou/uL (152-406); RBC Red Blood Cell Count 3.99 M/uL (3.86-4.86); Red Cell Distribution Width 14.5 % (12.1-15.2)
[2024-06-29 07:24] LABS: Albumin 2.7 g/dL (3.4-5.0); Anion Gap 7.1 mEq/L (5.0-15.0); Magnesium 1.8 mg/dL (1.6-2.4); Phosphorus 4.1 mg/dL (2.5-4.9); Potassium 4.1 mEq/L (3.5-5.1)
[2024-06-29 09:29] VITALS: BP 134/64; TEMP 97.9
[2024-06-29 12:33] LABS: Specific Gravity < 1.005 (1.005-1.030); Sqamous Epithelial None Seen /HPF (None Seen); Urine Bacteria None Seen /HPF (<20); Urine Bilirubin NEGATIVE (Negative); Urine Blood Negative (Negative); Urine Clarity Clear (Clear); Urine Color Colorless (Yellow); Urine Culture Reflex Order NOT NEEDED; Urine Glucose NEGATIVE (Negative); Urine Ketones 1+ (Negative); Urine Micro Reflex YN NO BILL MICROSCOPIC; Urine Microscopic Reflex YN ORDER UMIC; Urine Mucus Slight /HPF (None Seen); Urine Nitrite NEGATIVE (Negative); Urine Protein NEGATIVE (Negative); Urine RBC <5 /HPF (None Seen); Urine Urobilinogen Normal (Normal); Urine WBC <5 /HPF (<5)
--- NOTE | 2024-06-29 13:13 | P.PN ---
Subjective Date of Service: 06/29/24 Chief Complaint: Rectal Pain Pt is resting comfortably in bed. The kingsley catheter was removed this am. Will wait for pt to void. Gen surgeon is following. No other complaints. Review of Systems General: Unremarkable Eyes: Unremarkable ENT: Unremarkable Respiratory: Unremarkable Cardiovascular: Unremarkable Gastrointestinal: Unremarkable Genitourinary: Other (rectal pain) Musculoskeletal: Unremarkable Integumentary: Unremarkable Neurological: Unremarkable Lymphatics: Unremarkable Physical Examination - Vital Signs Temperature: 97.9 F Blood Pressure: 134/64 Pulse: 62 Respirations: 18 Pulse Ox (%): 95 - Physical Exam General: Alert, In no apparent distress, Oriented x3 HEENT: Atraumatic, Normocephalic, PERRLA Neck: Supple, 2+ carotid pulse no bruit, JVD not distended Respiratory: Clear to auscultation bilaterally, Normal air movement Cardiovascular: No edema, Normal pulses, Regular rate/rhythm, Normal S1 S2 Capillary refill: <2 Seconds Gastrointestinal: Normal bowel sounds, Soft and benign, Non-distended Musculoskeletal: No clubbing, No swelling, No contractures Integumentary: No rashes, No breakdown, No significant lesion Neurological: Normal gait, Normal speech, Normal strength at 5/5 x4 extr, Normal tone, Sensation intact Lymphatics: No axilla or inguinal lymphadenopathy Assessment And Plan - Plan Intractable pain due to Proctitis / Early rectal inflammation/abscess / Hemorrhoidectomy: Will continue IVF, prn pain med, and steroid. Willswitch zosyn to Augmentin. Gen surgeon is following. Repeat 06/26 CT of the abdomen shows no acute finding. Will r/o STI. Labs ( HSV, RPR, HIV) are pending Acute urinary retention: Pt refused kingsley catheter placement. She voided a little bit by herself. Continue Ditropan Hypertension: Continue home med Hypoklaemia: K is 4.1 <- 2.7. Will replete and monitor. Morbid obesity: Pt was advised to lose weight. GERD: Continue PPI GI ppx: protonix DVT ppx: Lovenox DIspo: pending hospital course
--- NOTE | 2024-06-29 13:50 | P.DS ---
Admission Date: 06/23/24 Discharge Date: 06/29/24 Reason for Admission: Rectal Pain Consultations: Dr. Reina Brief History of Present Illness: 73 yrs old female with past medical history of GERD, HTN, and Retinal Detachment came with rectal pain which has been going for 2-3 days . Patient arrives today for evaluation of rectal pain. Patient reports that she was seen at Dr. Oropeza's office and was told to come to the emergency department for evaluation.. Patient was assessed in the admitted for further management and surgical consult, Hospital Course: Dr. Reina performed a proctoscopy and found no masses, no fissures, but did find 2 hemorrhoids which he removed/cauterized and sent for pathology. The patient's hospital course was lengthened secondary to intractable anal pain and urinary retention. After 2 straight caths it was determined that we would place a Kingsley. Today the Kingsley was clamped, the patient had some bladder retraining, and she was able to urinate post removal. An additional urinalysis was sent and was clear of infection. Ms. Gutierrez is stable for discharge and follow-up with her PCP and Dr. Reina. <Ruthann Vanegas - Last Filed: 06/29/24 13:52> Admission Date: 06/23/24 Discharge Date: 06/29/24 Hospital Course: Pt seen and examined. I agree with the note by the PARTS FINISHER. We removed the kingsley catheter and pt voided before discharge. Ok to discharge pt. <Diann Szymanski - Last Filed: 06/29/24 22:19> Disposition: ROUTINE DISCHARGE Discharge Condition: GOOD Vital Signs/Physical Exam: Temp Pulse Resp BP Pulse Ox 97.9 F 62 18 134/64 95 06/29/24 13:42 06/29/24 13:42 06/29/24 13:42 06/29/24 13:42 06/29/24 13:42 General: Alert, In no apparent distress, Oriented x3 HEENT: Atraumatic, Normocephalic Neck: Supple Respiratory: Normal air movement Cardiovascular: No edema, Normal pulses, Regular rate/rhythm Capillary refill: <2 Seconds Gastrointestinal: Soft and benign, Other (sitting side-lying on the chair) Musculoskeletal: No clubbing Integumentary: No rashes Neurological: Normal speech, Sensation intact, Normal affect Urinary: Other (bladder training since this am. Able to void some on her own and kingsley removed) External genitalia: Deferred Rectal: Deferred Laboratory Data at Discharge: WBC 5.00 thou/uL (4.3-10.9) 06/29/24 06:21 Hgb 11.7 g/dL (12.0-15.0) L 06/29/24 06:21 Hct 35.0 % (36.0-45.0) L 06/29/24 06:21 Plt Count 124 thou/uL (152-406) L 06/29/24 06:21 Sodium 143 mEq/L (136-145) 06/29/24 06:21 Potassium 4.1 mEq/L (3.5-5.1) D 06/29/24 06:21 BUN 3 mg/dL (7-18) L 06/29/24 06:21 Creatinine 0.54 mg/dL (0.55-1.02) L 06/29/24 06:21 Glucose 103 mg/dL (74-106) 06/29/24 06:21 Phosphorus 4.1 mg/dL (2.5-4.9) 06/29/24 06:21 Magnesium 1.8 mg/dL (1.6-2.4) 06/29/24 06:21 Total Bilirubin 0.5 mg/dL (0.2-1.0) 06/24/24 06:39 AST 60 U/L (15-37) H 06/24/24 06:39 ALT 72 U/L (13-56) H 06/24/24 06:39 Alkaline Phosphatase 73 U/L (45-117) D 06/24/24 06:39 Lipase 21 U/L (13-75) 06/23/24 17:20 <Vanegas,Ruthann Rolf - Last Filed: 06/29/24 13:52> Vital Signs/Physical Exam: Temp Pulse Resp BP Pulse Ox 97.9 F 62 18 134/64 95 06/29/24 13:42 06/29/24 13:42 06/29/24 13:42 06/29/24 13:42 06/29/24 13:42 Laboratory Data at Discharge: WBC 5.00 thou/uL (4.3-10.9) 06/29/24 06:21 Hgb 11.7 g/dL (12.0-15.0) L 06/29/24 06:21 Hct 35.0 % (36.0-45.0) L 06/29/24 06:21 Plt Count 124 thou/uL (152-406) L 06/29/24 06:21 Sodium 143 mEq/L (136-145) 06/29/24 06:21 Potassium 4.1 mEq/L (3.5-5.1) D 06/29/24 06:21 BUN 3 mg/dL (7-18) L 06/29/24 06:21 Creatinine 0.54 mg/dL (0.55-1.02) L 06/29/24 06:21 Glucose 103 mg/dL (74-106) 06/29/24 06:21 Phosphorus 4.1 mg/dL (2.5-4.9) 06/29/24 06:21 Magnesium 1.8 mg/dL (1.6-2.4) 06/29/24 06:21 Total Bilirubin 0.5 mg/dL (0.2-1.0) 06/24/24 06:39 AST 60 U/L (15-37) H 06/24/24 06:39 ALT 72 U/L (13-56) H 06/24/24 06:39 Alkaline Phosphatase 73 U/L (45-117) D 06/24/24 06:39 Lipase 21 U/L (13-75) 06/23/24 17:20 <Diann Szymanski - Last Filed: 06/29/24 22:19> Diet: soft Activity: Fall precautions <Vanegas,Ruthann Rolf - Last Filed: 06/29/24 13:52> <Diann Szymanski - Last Filed: 06/29/24 22:19> Home Medications: Aspirin [Mark Chewable Aspirin] 81 mg PO DAILY 05/02/19 Docusate [Colace Cap*] 100 mg PO DAILY 05/02/19 Melatonin 5 mg PO BEDTIME 05/02/19 Sertraline [Zoloft*] 50 mg PO DAILY 05/02/19 carvediloL [Coreg*] 25 mg PO BID 05/02/19 Amox/Clavulanate [Augmentin 875-125 Tab] 1 each PO BID 10 Days #20 tab 06/24/24 Pantoprazole [Protonix Tab*] 40 mg PO BID 06/24/24 Polyethylene Glycol 3350 [Miralax] 17 gm PO DAILY 30 Days #1 bottle 06/24/24 metroNIDAZOLE [Flagyl] 500 mg PO Q8H 10 Days #30 tab 06/24/24 New Medications: Amox/Clavulanate [Augmentin 875-125 Tab] 1 each PO BID 10 Days #20 tab metroNIDAZOLE [Flagyl] 500 mg PO Q8H 10 Days #30 tab Polyethylene Glycol 3350 [Miralax] 17 gm PO DAILY 30 Days #1 bottle Physician Discharge Instructions: 73 yrs old female with past medical history of GERD, HTN,Retinal Detachment came with rectal pain which has been going for 2-3 days . Patient arrives today for evaluation of rectal pain. Patient reports that she was seen at Dr. Oropeza's office and was told to come to the emergency department for evaluation.. Patient was assessed in the admitted for further management and surgical consult, Dr. Reina performed a proctoscopy and found no masses, no fissures, but did find 2 hemorrhoids which he removed/cauterized and sent for pathology. The patient's hospital course was lengthened secondary to intractable anal pain and urinary retention. After 2 straight caths it was determined that we would place a Kingsley. Today the Kingsley was clamped, the patient had some bladder retraining, and she was able to urinate post removal. An additional urinalysis was sent and was clear of infection. Ms. Gutierrez is stable for discharge and follow-up with her PCP and Dr. Reina. Rectal pain Proctitis-amoxicillin/clavulanate twice daily for 10 days Flagyl twice daily for 10 days As needed analgesics No driving or operating heavy equipment while on narcotics Soft diet 06/24 Surgical evaluation status post hemorrhoidectomy Discharged home on antibiotics, as needed analgesics, follow-up with surgery after discharge Continue home medicines as previously prescribed GOAL: Clear understanding of disease process INSTRUCTIONS: Physician Discharge Instructions: -Follow-up with PCP in 1 to 2 weeks -Please call Dr. Moody at [phone] if any questions regarding hospital stay -Please call nursing station at [phone] if any nursing or medication questions -Return to the emergency room if symptoms worsen Diet: ADA, low sodium Activity: Fall precautions Followup: Damon Reina MD [ACTIVE - CAN ADMIT] - 1-2 Weeks ENRIQUE NUNEZ [Primary Care Provider] - Thomas Berg MD [ASSOCIATE-ACTIVE - CAN ADMIT] - 1-2 Weeks
[2024-06-29] MEDS ORDERED: AMOX/K CLAV 875 MG TAB PO SCH (17:00)
[2024-06-30 12:12] LABS: C.trachomatis RNA,TMA Not Detected (Not Detected); N.gonorrhoeae RNA,TMA Not Detected (Not Detected)
[2024-06-30 13:40] LABS: HSV Source Rectal
== END 2024-06-29 15:53 | disposition home or self-care (01) | DRG 348 ==
LOC: ER 16:32 → ERHOLD 19:26 → 2ND 20:32
PROVIDERS: ADMIT Family Medicine; ATTEND Hospitalist
PROC: 06BY0ZC Excision of Hemorrhoidal Plexus, Open Approach (ICD-10-PCS; principal; 2024-06-24 15:15)
PROC: 0T9B70Z Drainage of Bladder with Drainage Device, Via Natural or Artificial Opening (ICD-10-PCS; 2024-06-27)
DX: K62.89 Other specified diseases of anus and rectum (principal); K61.1 Rectal abscess; Z68.41 Body mass index [BMI] 40.0-44.9, adult; E66.01 Morbid (severe) obesity due to excess calories; E87.6 Hypokalemia; I10 Essential (primary) hypertension; K21.9 Gastro-esophageal reflux disease without esophagitis; K64.9 Unspecified hemorrhoids; R33.9 Retention of urine, unspecified; Z88.2 Allergy status to sulfonamides; Z88.7 Allergy status to serum and vaccine; Z88.1 Allergy status to other antibiotic agents; Z98.84 Bariatric surgery status; Z79.82 Long term (current) use of aspirin; Z79.02 Long term (current) use of antithrombotics/antiplatelets; Z90.49 Acquired absence of other specified parts of digestive tract; Z79.899 Other long term (current) drug therapy; Z91.048 Other nonmedicinal substance allergy status; Z90.710 Acquired absence of both cervix and uterus
CPT/HCPCS: 36415; 74177; 80048; 80053; 80069; 81001; 83690; 83735; 83880; 84132; 85025; 86592; 86593; 87086; 87088; 87255; 87389; 87490; 87590; 88304; 99285; J1100; J1170; J1650; J2001; J2175; J2250; J2270; J2405; J2543; J2704; J2919; J3010; J3475; J3480; J7030; J7040; J7120; J7799; Q9967

== ENCOUNTER 2024-07-02 17:00 | Emergency (ER) | payer OTHER ==
[2024-07-02] MEDS ORDERED: ONDANSETRON 4 MG/2 ML VIAL ONE (19:08)
[2024-07-02] MEDS ORDERED: NA CHLORIDE 0.9% 1,000 ML ONE (19:09)
[2024-07-02] MEDS ORDERED: HYDROMORPHONE HCL 1 MG/ML INJ ONE ×2 (19:09→22:18)
[2024-07-02 19:32] LABS: Absolute Basophils 0.1 K/uL (0-0.5); Absolute Eosinophils 0.1 K/uL (0-0.5); Absolute Monocytes 0.7 K/uL (0.1-1.3); Absolute Neutrophil 5.9 K/uL (1.8-8.0); Basophils % 0.7 % (0-1.3); Eosinophils % 0.9 % (0-4.4); Hematocrit 38.3 % (36.0-45.0); Hemoglobin 12.5 g/dL (12.0-15.0); Lymphocytes % 13.1 % (15.3-44.8); MCH 28.6 pg (27.0-35.0); MCHC 32.6 g/dL (32.0-36.0); MCV 87.8 fL (80-100); MPV 9.9 fL (7.6-11.3); Monocytes % 9.6 % (3.3-12.3); Neutrophils % 75.7 % (41.7-73.7); Nucleated Red Blood Cells % 0.1 % (0-0); Platelets 136 thou/uL (152-406); RBC Red Blood Cell Count 4.37 M/uL (3.86-4.86); Red Cell Distribution Width 14.9 % (12.1-15.2)
[2024-07-02 19:46] LABS: Albumin 2.9 g/dL (3.4-5.0); Albumin/Globulin Ratio 0.8 (1.1-1.8); Bilirubin Total 0.8 mg/dL (0.2-1.0); Globulin 3.6 g/dL (2.3-3.5); Protein, Total 6.5 g/dL (6.4-8.2)
--- NOTE | 2024-07-02 20:23 | RAD REPORT ---
EXAM DESCRIPTION: CTAbdomen Pelvis W Contrast - 07/02/2024 8:15 pm CLINICAL HISTORY: Abdominal pain. rectal pain COMPARISON: <Comparisons> TECHNIQUE: CT imaging of the abdomen and pelvis was performed with 100 ml non-ionic IV contrast. All CT scans are performed using dose optimization technique as appropriate and may include automated exposure control or mA/KV adjustment according to patient size. FINDINGS: The lung bases are clear.Cholecystectomy. Postsurgical changes about the stomach. The liver, spleen, pancreas, right adrenal gland and kidneys are within normal limits. 11 mm left adr enal nodule. No bowel obstruction, free air, free fluid or abscess. The appendix is not identified as a discrete s tructure, however, no secondary findings of appendicitis are identified. Mild thickening of the rect um and mild induration of the adjacent fat. Air is present in the urinary bladder. No evidence of sig nificant lymphadenopathy. No suspicious bony findings. IMPRESSION: Mild proctitis is a possibility. Air in the urinary bladder may be related to infection or recent instrumentation.
[2024-07-02] MEDS ORDERED: LIDOCAINE HCL JELLY 2% 6 ML SYRINGE TOP ONE (21:38)
--- NOTE | 2024-07-02 22:13 | ER ---
Nurse's Notes [facility] Name: Dominga Gutierrez Age: 73 yrs Sex: Female : 1950 Arrival Date: 07/02/2024 Time: 17:00 Bed 11 Private MD: Diagnosis: Acute pain, not elsewhere classified-rectal, post hemorrhoidectomy Presentation: 07/02 17:26 Chief complaint: Patient states: RECTAL PAIN STARTED YESTERDAY WORSE TODAY. REPORTS db HEMORRHOID SURGERY LAST FRIDAY. Coronavirus screen: Client denies travel out of the [place] in the last 14 days. At this time, the client does not indicate any symptoms associated with coronavirus-19. Ebola Screen: Patient negative for fever greater than or equal to 101.5 degrees Fahrenheit, and additional compatible Ebola Virus Disease symptoms Patient denies exposure to infectious person. Patient denies travel to an Ebola-affected area in the 21 days before illness onset. No symptoms or risks identified at this time. Initial Sepsis Screen: Does the patient meet any 2 criteria? No. Patient's initial sepsis screen is negative. Does the patient have a suspected source of infection? No. Patient's initial sepsis screen is negative. Risk Assessment: Do you want to hurt yourself or someone else? Patient reports no desire to harm self or others. Onset of symptoms was July 02, 2024. 17:26 Method Of Arrival: Wheelchair db 17:26 Acuity: NATHAN 3 db Triage Assessment: 17:28 General: Appears uncomfortable. General: Behavior is cooperative, anxious. Pain: db Complains of pain in buttocks. Neuro: Level of Consciousness is awake, alert, obeys commands, Oriented to person, place, time, situation. Historical: - Allergies: 17:27 Sulfa; db 17:27 Tape; db - PMHx: 17:27 Hypertension; Retinal detachment August 2015; GERD; db - PSHx: 17:27 Hemorrhoidectomy; GASTRIC BYPASS; db 17:27 HYSTERECTOMY; Cholecystectomy; db 17:28 RIGHT ANKLE SURGERY; db - Immunization history:: Adult Immunizations unknown. - Infectious Disease History:: Denies. - Social history:: Smoking status: Patient denies any tobacco usage or history of. Screenin:15 [facility] ED Fall Risk Assessment (Adult) History of falling in the last 3 months, ar6 including since admission No falls in past 3 months (0 pts) Confusion or Disorientation No (0 pts) Intoxicated or Sedated No (0 pts) Impaired Gait No (0 pts) Mobility Assist Device Used No (0 pt) Altered Elimination No (0 pt) Score/Fall Risk Level 0 - 2 = Low Risk. [facility] ED Fall Risk Assessment (Adult) Score/Fall Risk Level 0 - 2 = Low Risk Oriented to surroundings, Maintained a safe environment, Hourly rounding (assess needs \T\ fall precautionary measures) done. Abuse screen: Denies threats or abuse. Denies injuries from another. Nutritional screening: No deficits noted. Tuberculosis screening: No symptoms or risk factors identified. Assessment: 19:15 General: Appears in no apparent distress. uncomfortable, Behavior is calm, cooperative, ar6 appropriate for age. Pain: Complains of pain in buttocks. Neuro: Level of Consciousness is awake, alert, obeys commands, Oriented to person, place, time, situation. Cardiovascular: Capillary refill < 3 seconds. Respiratory: Airway is patent. GI: Abdomen is round non-distended, Rectal exam: pt. reports having hemorrhoids removed x1 week. : No signs and/or symptoms were reported regarding the genitourinary system. EENT: Oral mucosa is moist. Derm: Skin is intact, is healthy with good turgor, Skin is dry, Skin is pink, warm \T\ dry. Musculoskeletal: No signs and/or symptoms reported regarding the musculoskeletal system. Vital Signs: 17:26 BP 165 / 82; Pulse 69; Resp 18; Temp 98.4; Pulse Ox 100% ; Weight 98.88 kg; Height 5 db ft. 2 in. ; 19:15 BP 149 / 64; Pulse 88; Resp 18; Temp 98.1; Pulse Ox 100% on R/A; ar6 22:45 BP 138 / 67; Pulse 82; Resp 18; Pulse Ox 99% on R/A; ar6 17:26 Body Mass Index 39.87 (98.88 kg, 157.48 cm) db ED Course: 17:02 Patient arrived in ED. im 17:27 Triage completed. db 17:28 Arm band placed on. db 17:29 Marcelino Ugalde PA is PHCP. cp 17:29 Gerarod Christopher DO is Attending Physician. cp 19:06 Leti Bennett, RN is Primary Nurse. ar6 19:15 No apparent distress. ar6 19:15 Patient has correct armband on for positive identification. Placed in gown. Bed in low ar6 position. Call light in reach. Side rails up X2. Provided Education on: medications. Client placed on continuous cardiac and pulse oximetry monitoring. NIBP monitoring applied. Door closed. Noise minimized. Lights dimmed. Warm blanket given. Pillow given. Turned. 19:15 No provider procedures requiring assistance completed. Inserted saline lock: 20 gauge ar6 in right antecubital area, using aseptic technique. Blood collected. Flushed with 10 mL NS. 19:24 CBC with Diff Sent. ar6 19:24 CMP Sent. ar6 19:24 Lipase Sent. ar6 20:17 CT Abd/Pelvis - IV Contrast Only In Process Unspecified. EDMS 22:05 Damon Reina MD is Referral Physician. cp 22:40 IV discontinued, intact, bleeding controlled, No redness/swelling at site. Pressure ar6 dressing applied. Administered Medications: 19:23 Drug: NS 0.9% IV 500 ml IV at 500 ml/hr continuous Route: IV; Rate: 500 ml/hr; Site: ar6 right antecubital; 21:36 Follow up: Response: No adverse reaction; IV Status: Completed infusion; IV Intake: ar6 500ml 22:53 Follow up: IV Status: Completed infusion; IV Intake: 500ml ar6 19:24 Drug: Ondansetron IVP 4 mg IVP once; over 2 minutes Route: IVP; Site: right antecubital;ar6 21:37 Follow up: Response: No adverse reaction ar6 19:24 Drug: HYDROmorphone IVP 1 mg IVP once Route: IVP; Site: right antecubital; ar6 21:37 Follow up: Response: No adverse reaction; Pain is decreased ar6 21:39 Drug: Lidocaine Mucous Membrane Gel 2 % 1 ea 15 ml Mucous Membrane once Volume: 15 ml; ar6 Route: Mucous Membrane; 22:52 Follow up: Response: No adverse reaction ar6 22:02 Drug: Rocephin IV 1 grams IV at calculated rate once; Given slow IV push per pharmacy ar6 instructions Route: IV; Rate: calculated rate; Site: right antecubital; 22:52 Follow up: Response: No adverse reaction ar6 23:04 Follow up: IV Status: Completed infusion ar6 22:02 Drug: HYDROmorphone IVP 1 mg IVP once Route: IVP; Site: right antecubital; ar6 22:52 Follow up: Response: No adverse reaction; Pain is decreased ar6 Medication: 19:15 VIS not applicable for this client. ar6 Intake: 21:36 IV: 500ml; Total: 500ml. ar6 22:53 IV: 500ml; Total: 1000ml. ar6 Outcome: 22:13 Discharge ordered by MD. cp 22:40 Discharged to home via wheelchair, ar6 22:40 Condition: good 22:40 Discharge instructions given to patient, family, Instructed on discharge instructions, follow up and referral plans. medication usage, Demonstrated understanding of instructions, follow-up care, medications, Prescriptions given X 2, 22:51 Patient left the ED. ar6 Signatures: Dispatcher [employer] EDMS Marcelino Ugalde PA PA cp Benton, Danielle, RN RN Aubrie Castillo Amber RN RN ar6
--- NOTE | 2024-07-02 22:14 | EDPHYS ---
Physician Documentation [facility] Name: Dominga Gutierrez Age: 73 yrs Sex: Female : 1950 Arrival Date: 07/02/2024 Time: 17:00 Bed 11 Private MD: ED Physician Gerardo Christopher HPI: 07/02 18:00 This 73 yrs old Female presents to ER via Wheelchair with complaints of Rectal Pain. cp 18:00 The patient presents to the emergency department with pain in the rectal area, that is cp severe. Onset: The symptoms/episode began/occurred yesterday, and became worse today. Context: the patient reports having hemorrhoidectomy last by DR Reina. 18:00 Associate signs and symptoms: Pertinent negatives: abdominal pain, constipation, cp diarrhea, fever, lower GI bleeding, vomiting. Historical: - Allergies: 17:27 Sulfa; db 17:27 Tape; db - PMHx: 17:27 Hypertension; Retinal detachment August 2015; GERD; db - PSHx: 17:27 Hemorrhoidectomy; GASTRIC BYPASS; db 17:27 HYSTERECTOMY; Cholecystectomy; db 17:28 RIGHT ANKLE SURGERY; db - Immunization history:: Adult Immunizations unknown. - Infectious Disease History:: Denies. - Social history:: Smoking status: Patient denies any tobacco usage or history of. ROS: 18:05 Constitutional: Negative for body aches, chills, fever, poor PO intake, cp 18:05 Eyes: Negative for injury, pain, redness, and discharge, cp 18:05 ENT: Negative for drainage from ear(s), ear pain, sore throat, difficulty swallowing, difficulty handling secretions, 18:05 Cardiovascular: Negative for chest pain, 18:05 Respiratory: Negative for cough, shortness of breath, wheezing, 18:05 Abdomen/GI: Positive for rectal pain, Negative for abdominal pain, vomiting, diarrhea, constipation, black/tarry stool, rectal bleeding, 18:05 Back: Negative for pain at rest, pain with movement, 18:05 : Negative for urinary symptoms, flank pain, 18:05 Neuro: Negative for altered mental status, dizziness, headache, weakness, 18:05 All other systems are negative, Exam: 18:10 Constitutional: The patient appears in no acute distress, alert, awake, cp non-diaphoretic, non-toxic, well developed, well nourished, obese, in obvious pain, uncomfortable, 18:10 Head/Face: Normocephalic, atraumatic. cp 18:10 Eyes: Periorbital structures: appear normal, Conjunctiva: normal, no exudate, no injection, Sclera: no appreciated abnormality, Lids and lashes: appear normal, bilaterally, 18:10 ENT: External ear(s): are unremarkable, Nose: is normal, Mouth: Lips: moist, Oral mucosa: moist, Posterior pharynx: Airway: no evidence of obstruction, patent, 18:10 Chest/axilla: Inspection: normal, 18:10 Cardiovascular: Rate: normal, Rhythm: regular, Edema: is not appreciated, JVD: is not appreciated, 18:10 Respiratory: the patient does not display signs of respiratory distress, Respirations: normal, no use of accessory muscles, no retractions, labored breathing, is not present, Breath sounds: are clear throughout, no decreased breath sounds, no stridor, no wheezing, 18:10 Abdomen/GI: Inspection: obese Palpation: abdomen is soft and non-tender, in all quadrants, 18:10 : Rectal exam: pain, mild swelling, no active bleeding, no abscess, Vital Signs: 17:26 BP 165 / 82; Pulse 69; Resp 18; Temp 98.4; Pulse Ox 100% ; Weight 98.88 kg; Height 5 db ft. 2 in. ; 19:15 BP 149 / 64; Pulse 88; Resp 18; Temp 98.1; Pulse Ox 100% on R/A; ar6 22:45 BP 138 / 67; Pulse 82; Resp 18; Pulse Ox 99% on R/A; ar6 17:26 Body Mass Index 39.87 (98.88 kg, 157.48 cm) db MDM: 17:30 Patient medically screened. cp 19:00 Differential diagnosis: fissure, abscess, rectal bleeding, constipation, bowel cp obstruction. 22:12 Data reviewed: vital signs, nurses notes, lab test result(s), radiologic studies, CT cp scan, and as a result, I will discharge patient. 22:12 I considered the following discharge prescriptions or medication management in the emergency department Medications were administered in the Emergency Department. See MAR. 22:12 Care significantly affected by the following chronic conditions: Hypertension, Obesity. cp Counseling: I had a detailed discussion with the patient and/or guardian regarding the historical points, exam findings, and any diagnostic results supporting the discharge/admit diagnosis, lab results, radiology results, the need for outpatient follow up, a general surgeon, to return to the emergency department if symptoms worsen or persist or if there are any questions or concerns that arise at home. Response to treatment: the patient's symptoms have markedly improved after treatment, and as a result, I will discharge patient. 07/02 17:37 Order name: CBC with Diff; Complete Time: 20:34 cp 07/02 20:58 Interpretation: Normal except: PLT 136; NGHIA% 75.7; LYM% 13.1. cp 07/02 17:37 Order name: CMP; Complete Time: 20:34 cp 07/02 20:58 Interpretation: Normal except: K 3.0; GLUC 118; AST 72; ALT 63; ALB 2.9; GLOB 3.6; A/G cp 0.8. 07/02 17:37 Order name: Lipase; Complete Time: 20:34 cp 07/02 17:39 Order name: CT Abd/Pelvis - IV Contrast Only; Complete Time: 20:34 cp 07/02 20:59 Interpretation: Report reviewed. cp 07/02 17:37 Order name: IV Saline Lock; Complete Time: 19:24 cp 07/02 17:37 Order name: Labs collected and sent; Complete Time: 19:24 cp Administered Medications: 19:23 Drug: NS 0.9% IV 500 ml IV at 500 ml/hr continuous Route: IV; Rate: 500 ml/hr; Site: ar6 right antecubital; 21:36 Follow up: Response: No adverse reaction; IV Status: Completed infusion; IV Intake: ar6 500ml 22:53 Follow up: IV Status: Completed infusion; IV Intake: 500ml ar6 19:24 Drug: Ondansetron IVP 4 mg IVP once; over 2 minutes Route: IVP; Site: right antecubital;ar6 21:37 Follow up: Response: No adverse reaction ar6 19:24 Drug: HYDROmorphone IVP 1 mg IVP once Route: IVP; Site: right antecubital; ar6 21:37 Follow up: Response: No adverse reaction; Pain is decreased ar6 21:39 Drug: Lidocaine Mucous Membrane Gel 2 % 1 ea 15 ml Mucous Membrane once Volume: 15 ml; ar6 Route: Mucous Membrane; 22:52 Follow up: Response: No adverse reaction ar6 22:02 Drug: Rocephin IV 1 grams IV at calculated rate once; Given slow IV push per pharmacy ar6 instructions Route: IV; Rate: calculated rate; Site: right antecubital; 22:52 Follow up: Response: No adverse reaction ar6 23:04 Follow up: IV Status: Completed infusion ar6 22:02 Drug: HYDROmorphone IVP 1 mg IVP once Route: IVP; Site: right antecubital; ar6 22:52 Follow up: Response: No adverse reaction; Pain is decreased ar6 Disposition: 21:26 I was immediately available on-site in the Emergency Department for consultation in the ms3 care of the patient. Disposition Summary: 07/02/24 22:13 Discharge Ordered Notes: Location: Home cp Problem: new cp Symptoms: have improved cp Condition: Stable cp Diagnosis - Acute pain, not elsewhere classified - rectal, post hemorrhoidectomy cp Followup: cp - With: Damon Reina MD - When: 2 - 3 days - Reason: Recheck today's complaints Discharge Instructions: - Discharge Summary Sheet cp - Surgical Procedures for Hemorrhoids, Care After cp Forms: - Medication Reconciliation Form cp - Antibiotic Education cp - Prescription Opioid Use cp - Patient Portal Instructions cp - Leadership Thank You Letter cp Prescriptions: - Senexon-S 8.6-50 mg Oral tablet - take 2 tablet ORAL route daily As needed for constipation; 30 tablet; Refills: cp 0, Product Selection Permitted - Tramadol 50 mg Oral Tablet - take 1 tablet ORAL route every 8 hours as needed; 12 tablet; Refills: 0, cp Product Selection Permitted Signatures: Dispatcher [employer] EDTX Marcelino Ugalde PA PA cp Sims, Marcus, DO DO ms3 Beatrice Vázquez RN RN Leti Conroy RN RN ar6
[2024-07-02] MEDS ORDERED: CEFTRIAXONE 1000 MG/VIAL ONE (22:18)
[2024-07-02 22:58] VITALS: O2SAT 100
[2024-07-02 22:59] VITALS: BP 149/64; TEMP 98.1
== END 2024-07-02 22:51 | disposition home or self-care (01) ==
LOC: ER 17:00
DX: G89.18 Other acute postprocedural pain (principal); Z98.890 Other specified postprocedural states
CPT/HCPCS: 96365; 96361; 85025; 36415; 83690; 80053; 74177; 96375; 99284; Q9967; J1170 ×2; J2405; J7030; J0696

== ENCOUNTER 2024-07-06 21:03 | Inpatient (IN) | payer OTHER ==
[2024-07-06] MEDS ORDERED: ONDANSETRON 4 MG/2 ML VIAL ONE ×2 (21:16→21:49)
[2024-07-06] MEDS ORDERED: MORPHINE 4 MG/ML SYR ONE (21:17)
[2024-07-06] MEDS ORDERED: NA CHLORIDE 0.9% 1,000 ML ONE ×2 (21:17→21:50)
[2024-07-06 21:31] LABS: Absolute Eosinophils 0.1 K/uL (0-0.5); Absolute Lymphocytes (CBC) 1.4 K/uL (0.7-4.9); Absolute Monocytes 0.6 K/uL (0.1-1.3); Absolute Neutrophil 3.9 K/uL (1.8-8.0); Basophils % 0.8 % (0-1.3); Eosinophils % 1.4 % (0-4.4); Hematocrit 39.2 % (36.0-45.0); Hemoglobin 13.1 g/dL (12.0-15.0); Lymphocytes % 22.9 % (15.3-44.8); MCH 29.1 pg (27.0-35.0); MCHC 33.5 g/dL (32.0-36.0); MPV 9.4 fL (7.6-11.3); Monocytes % 9.5 % (3.3-12.3); Neutrophils % 65.4 % (41.7-73.7); Platelets 166 thou/uL (152-406); Red Cell Distribution Width 15.2 % (12.1-15.2)
[2024-07-06] MEDS ORDERED: HYDROMORPHONE HCL 1 MG/ML INJ ONE (21:43)
[2024-07-06 21:44] LABS: Albumin 3.2 g/dL (3.4-5.0); Albumin/Globulin Ratio 0.9 (1.1-1.8); Anion Gap 9.7 mEq/L (5.0-15.0); Bilirubin Total 0.6 mg/dL (0.2-1.0); Globulin 3.6 g/dL (2.3-3.5); Potassium 3.7 mEq/L (3.5-5.1); Protein, Total 6.8 g/dL (6.4-8.2)
[2024-07-06] MEDS ORDERED: PIPERACIL/TAZO 3.375 GM VIAL IV ONE (21:50)
[2024-07-06] MEDS ORDERED: DIAZEPAM 5 MG TABLET ONE (21:50)
[2024-07-06] MEDS ORDERED: NA CHLORIDE 0.9% 100 ML ONE (21:50)
[2024-07-07] MEDS ORDERED: HYDROMORPHONE HCL 1 MG/ML INJ ONE ×2 (00:28→03:54)
[2024-07-07] MEDS ORDERED: Levofloxacin500mg IV 500 MG/100 ML BAG IV ONE (01:25)
--- NOTE | 2024-07-07 01:29 | ER ---
Nurse's Notes [facility] Name: Dominga Gutierrez Age: 73 yrs Sex: Female : 1950 Arrival Date: 07/06/2024 Time: 21:03 Bed 18 Private MD: Diagnosis: UTI/ Urinary tract infection, site not specified-intravesicular gas;Abdominal tenderness-proctitisintractable pain Presentation: 07/06 21:06 Chief complaint: EMS states: toned out for uncontrolled pain. patient had me1 hemorrhoidectomy 2 weeks ago and had tramadol. Reports some blood in her stool as well. Coronavirus screen: Vaccine status:. 21:06 Method Of Arrival: EMS: [facility] 21:10 Coronavirus screen: Vaccine status: Patient reports being unvaccinated. Ebola Screen: me1 No symptoms or risks identified at this time. Initial Sepsis Screen: Does the patient meet any 2 criteria? No. Patient's initial sepsis screen is negative. Does the patient have a suspected source of infection? No. Patient's initial sepsis screen is negative. Risk Assessment: Do you want to hurt yourself or someone else? Patient reports no desire to harm self or others. Onset of symptoms was June 24, 2024. 21:10 Acuity: NATHAN 3 me1 Triage Assessment: 21:11 General: Appears uncomfortable, obese, well groomed, well developed, Behavior is me1 cooperative, appropriate for age, anxious, Reports c/o pain from hemorrhoidectomy 2 weeks ago. Reports some blood in her stool. Pain: Complains of pain in rectum Pain does not radiate. Pain currently is 10 out of 10 on a pain scale. Quality of pain is described as sharp, Pain began gradually, Is continuous. EENT: No signs and/or symptoms were reported regarding the EENT system. Neuro: Level of Consciousness is awake, alert, obeys commands, Oriented to person, place, time, situation, Appropriate for age. Cardiovascular: Patient's skin is warm and dry. Respiratory: Airway is patent Trachea midline Respiratory effort is even, unlabored, Respiratory pattern is regular, symmetrical. GI: Reports bloody stool, pain to rectum that isnt controlled since hemorrhoidectomy. : No signs and/or symptoms were reported regarding the genitourinary system. Derm: Skin is intact, is healthy with good turgor, Skin is pink, warm \T\ dry. Musculoskeletal: No signs and/or symptoms reported regarding the musculoskeletal system. Historical: - Allergies: 21:11 Sulfa; me1 21:11 Tape; me1 21:11 Tetanus Vaccines \T\ Toxoid; me1 - PMHx: 21:11 GERD; Hypertension; Retinal detachment August 2015; hemorrhoids (Retinal detachment me1 August 2015); - PSHx: 21:11 Cholecystectomy; Gastric Bypass; Hemorrhoidectomy; hysterectomy; right ankle surgery; me1 - Immunization history:: Adult Immunizations up to date. - Infectious Disease History:: Denies. - Social history:: Smoking status: Patient denies any tobacco usage or history of. Screenin:13 [facility] ED Fall Risk Assessment (Adult) History of falling in the last 3 months, me1 including since admission No falls in past 3 months (0 pts) Confusion or Disorientation No (0 pts) Intoxicated or Sedated No (0 pts) Impaired Gait No (0 pts) Mobility Assist Device Used No (0 pt) Altered Elimination No (0 pt) Score/Fall Risk Level 0 - 2 = Low Risk Maintained a safe environment, Provided non-skid footwear, Hourly rounding (assess needs \T\ fall precautionary measures) done. Abuse screen: Denies threats or abuse. Nutritional screening: No deficits noted. Tuberculosis screening: No symptoms or risk factors identified. Assessment: 21:13 General: See triage assessment. . me1 /04 00:35 Pain: Complains of pain in anus Pain currently is 9 out of 10 on a pain scale. lg3 03:52 Pain: Complains of pain in anus Pain currently is 10 out of 10 on a pain scale. lg3 Vital Signs: 07/06 21:10 Pulse 53; Resp 20; Temp 98.7; Pulse Ox 100% ; Weight 98.88 kg; Height 5 ft. 2 in. ; me1 Pain 10/10; 21:47 Pain 8/10; me1 21:55 Pulse Ox 88% on R/A; me1 21:56 Pulse Ox 98% on 2 lpm NC; me1 22:00 BP 147 / 73; Pulse 72; Resp 15; Pulse Ox 95% on 2 lpm NC; me1 23:00 BP 159 / 66; Pulse 54; Resp 19; Pulse Ox 94% on R/A; me1 / 00:01 BP 163 / 69; Pulse 66; Resp 16; Pulse Ox 94% ; me1 02:46 BP 125 / 64; Pulse 71; Resp 15 S; Pulse Ox 96% on R/A; lg3 07/06 21:10 Body Mass Index 39.87 (98.88 kg, 157.48 cm) me1 07/06 21:10 Pain Scale: Adult me1 21:47 Pain Scale: Adult la1 ED Course: 07/06 21:05 Patient arrived in ED. me1 21:06 Marcelino Fitzgerald MD is Attending Physician. [facility] 21:11 Triage completed. me1 21:11 Arm band placed on Patient placed in an exam room. me1 21:13 Patient has correct armband on for positive identification. Bed in low position. Call la1 light in reach. Side rails up X2. Provided Education on: POC. Verbalized understanding. . Client placed on continuous cardiac and pulse oximetry monitoring. NIBP monitoring applied. Pulse ox on. NIBP on. 21:13 No provider procedures requiring assistance completed. me1 21:21 Inserted saline lock: 20 gauge in left antecubital area, using aseptic technique. Blood oe collected. Flushed with 10 mL NS. 21:23 Shelli Shannon, RN is Primary Nurse. me1 21:23 CBC with Diff Sent. me1 21:23 CMP Sent. me1 21:23 Lipase Sent. la1 23:40 CT Abd/Pelvis - PO and IV Contrast In Process Unspecified. EDID 07/07 01:28 Chris Reid MD is Hospitalizing Provider. [facility] 02:45 Deleon cath inserted, using sterile technique, 18 Fr., by la, balloon inflated, to lg3 gravity drainage, urine specimen collected. returned vicente urine. Patient tolerated well. 05:51 Patient admitted, IV remains in place. lg3 Administered Medications: 07/06 21:23 Drug: NS 0.9% IV 1000 ml IV at 1 bolus Per protocol; 1000 mL bolus Route: IV; Rate: 1 me1 bolus; Site: left antecubital; 07/07 00:08 Follow up: Response: No adverse reaction; IV Status: Completed infusion; IV Intake: me1 1000ml 07/06 21:23 Drug: Ondansetron IVP 4 mg IVP once; over 2 minutes Route: IVP; Site: left antecubital; me1 21:46 Follow up: Response: No adverse reaction; Nausea unchanged me1 21:23 Drug: morphine IVP or IV 4 mg IVP once over 4 mins Route: IVP; Infused Over: 4 mins; me1 Site: left antecubital; 21:47 Follow up: Pain 8/10 Adult; Response: No adverse reaction; Pain is decreased me1 21:46 Drug: HYDROmorphone IVP 1 mg IVP once Route: IVP; Site: left antecubital; me1 22:13 Follow up: Response: No adverse reaction; Pain is decreased me1 21:56 Drug: Ondansetron IVP 4 mg IVP once; over 2 minutes Route: IVP; Site: left antecubital; me1 22:13 Follow up: Response: No adverse reaction; Nausea is decreased me1 21:56 Drug: NS 0.9% IV 1000 ml IV at 1 bolus Per protocol; 1000 mL bolus Route: IV; Rate: 1 me1 bolus; Site: left antecubital; 07/07 02:47 Follow up: Response: No adverse reaction; IV Status: Completed infusion; IV Intake: lg3 1000ml 07/06 21:56 Drug: Diazepam PO 10 mg PO once Route: PO; me1 22:13 Follow up: Response: No adverse reaction; Anxiety decreased me1 22:15 Drug: Piperacillin-Tazobactam IVPB 3.375 grams IVPB once over 60 mins; (mix in NS 100 me1 mL) Route: IVPB; Infused Over: 60 mins; Site: left antecubital; 23:26 Follow up: Response: No adverse reaction; IV Status: Completed infusion; IV Intake: me1 100ml 07/07 00:35 Drug: HYDROmorphone IVP 1 mg IVP once Route: IVP; Site: left antecubital; lg3 02:46 Follow up: Response: No adverse reaction; Marked relief of symptoms lg3 02:45 Drug: levofloxacin IVPB 500 mg 100 ml IVPB once over 60 mins Volume: 100 ml; Route: lg3 IVPB; Infused Over: 60 mins; Site: left antecubital; 04:17 Follow up: Response: No adverse reaction; IV Status: Completed infusion; IV Intake: lg3 100ml 02:45 Drug: Diazepam IVP 5 mg IVP once Route: IVP; Site: left antecubital; lg3 05:11 Follow up: Response: No adverse reaction; Marked relief of symptoms; Anxiety decreased lg3 04:17 Drug: HYDROmorphone IVP 1 mg IVP once Route: IVP; Site: left antecubital; lg3 05:11 Follow up: Response: No adverse reaction; Marked relief of symptoms; Pain is decreased lg3 Medication: 07/06 21:13 VIS not applicable for this client. me1 Intake: 23:26 IV: 100ml; Total: 100ml. me1 07/07 00:08 IV: 1000ml; Total: 1100ml. me1 02:47 IV: 1000ml; Total: 2100ml. lg3 04:17 IV: 100ml; Total: 2200ml. lg3 Outcome: 01:29 Decision to Hospitalize by Provider. josemanuel 05:50 Admitted to Med/surg accompanied by tech, via stretcher, room 420, lg3 05:50 Condition: stable 05:50 Instructed on the need for admit, Demonstrated understanding of instructions, 05:57 Patient left the ED. lg3 Signatures: Dispatcher [employer] EDMarcelino Guajardo MD MD cha Espinosa, Orlando oe Able, Lacie, RN RN lg3 Shelli Shannon, GERMANIA RN me1 Corrections: (The following items were deleted from the chart) 07/06 23:21 22:00 BP 159 / 66; Pulse 54bpm; Resp 19bpm; Pulse Ox 94% RA; me1 me1
--- NOTE | 2024-07-07 01:29 | EDPHYS ---
Physician Documentation [facility] Name: Dominga Gutierrez Age: 73 yrs Sex: Female : 1950 Arrival Date: 07/06/2024 Time: 21:03 Bed 18 Private MD: ED Physician Marcelino Fitzgerald HPI: 07/06 23:21 This 73 yrs old Female presents to ER via EMS with complaints of Rectal Pain. josemanuel 23:21 The patient presents to the emergency department with pain in the rectal area, that is josemanuel moderate, that is severe. Onset: The symptoms/episode began/occurred 10 day(s) ago. Context: the patient is post surgical, hemorrhoidectomy. Modifying factors: The symptoms are alleviated by nothing, The symptoms are aggravated by movement, nothing. sitting position. Associate signs and symptoms: The patient has no apparent associated signs or symptoms. The patient has experienced similar episodes in the past, multiple times. Historical: - Allergies: 21:11 Sulfa; me1 21:11 Tape; me1 21:11 Tetanus Vaccines \T\ Toxoid; me1 - PMHx: 21:11 GERD; Hypertension; Retinal detachment August 2015; hemorrhoids (Retinal detachment me1 August 2015); - PSHx: 21:11 Cholecystectomy; Gastric Bypass; Hemorrhoidectomy; hysterectomy; right ankle surgery; me1 - Immunization history:: Adult Immunizations up to date. - Infectious Disease History:: Denies. - Social history:: Smoking status: Patient denies any tobacco usage or history of. ROS: 23:23 Constitutional: Negative for fever, chills, and weight loss, Eyes: Negative for injury, josemanuel pain, redness, and discharge, ENT: Negative for injury, pain, and discharge, Neck: Negative for injury, pain, and swelling, Cardiovascular: Negative for chest pain, palpitations, and edema, Respiratory: Negative for shortness of breath, cough, wheezing, and pleuritic chest pain, Abdomen/GI: Negative for abdominal pain, nausea, vomiting, diarrhea, and constipation, Back: Negative for injury and pain, : Negative for injury, bleeding, discharge, and swelling, MS/Extremity: Negative for injury and deformity, Skin: Negative for injury, rash, and discoloration, Neuro: Negative for headache, weakness, numbness, tingling, and seizure, Psych: Negative for depression, anxiety, suicide ideation, homicidal ideation, and hallucinations, Allergy/Immunology: Negative for hives, rash, and allergies, Endocrine: Negative for neck swelling, polydipsia, polyuria, polyphagia, and marked weight changes, Hematologic/Lymphatic: Negative for swollen nodes, abnormal bleeding, and unusual bruising, 23:23 Abdomen/GI: Positive for rectal pain, Exam: 23:23 Constitutional: This is a well developed, well nourished patient who is awake, alert, josemanuel and in no acute distress. Head/Face: Normocephalic, atraumatic. Eyes: Pupils equal round and reactive to light, extra-ocular motions intact. Lids and lashes normal. Conjunctiva and sclera are non-icteric and not injected. Cornea within normal limits. Periorbital areas with no swelling, redness, or edema. ENT: Nares patent. No nasal discharge, no septal abnormalities noted. Tympanic membranes are normal and external auditory canals are clear. Oropharynx with no redness, swelling, or masses, exudates, or evidence of obstruction, uvula midline. Mucous membranes moist. Neck: Trachea midline, no thyromegaly or masses palpated, and no cervical lymphadenopathy. Supple, full range of motion without nuchal rigidity, or vertebral point tenderness. No Meningismus. Chest/axilla: Normal chest wall appearance and motion. Nontender with no deformity. No lesions are appreciated. Cardiovascular: Regular rate and rhythm with a normal S1 and S2. No gallops, murmurs, or rubs. Normal PMI, no JVD. No pulse deficits. Respiratory: Lungs have equal breath sounds bilaterally, clear to auscultation and percussion. No rales, rhonchi or wheezes noted. No increased work of breathing, no retractions or nasal flaring. Back: No spinal tenderness. No costovertebral tenderness. Full range of motion. Female : Normal external genitalia. Skin: Warm, dry with normal turgor. Normal color with no rashes, no lesions, and no evidence of cellulitis. MS/ Extremity: Pulses equal, no cyanosis. Neurovascular intact. Full, normal range of motion. Neuro: Awake and alert, GCS 15, oriented to person, place, time, and situation. Cranial nerves II-XII grossly intact. Motor strength 5/5 in all extremities. Sensory grossly intact. Cerebellar exam normal. Normal gait. Psych: Awake, alert, with orientation to person, place and time. Behavior, mood, and affect are within normal limits. 23:23 Abdomen/GI: Inspection: abdomen appears normal, Bowel sounds: normal, Palpation: abdomen is soft and non-tender, in all quadrants, Rectal exam: swelling, tenderness, that is moderate, that is severe, Liver: no appreciated palpable abnormalities, Hernia: not appreciated, 23:23 Musculoskeletal/extremity: DVT Exam: No signs of deep vein thrombosis. no pain, no swelling, no tenderness, negative Homans' sign noted on exam, no appreciated bluish discoloration, no erythema, no increased warmth, Vital Signs: 21:10 Pulse 53; Resp 20; Temp 98.7; Pulse Ox 100% ; Weight 98.88 kg; Height 5 ft. 2 in. ; me1 Pain 10/10; 21:47 Pain 8/10; me1 21:55 Pulse Ox 88% on R/A; me1 21:56 Pulse Ox 98% on 2 lpm NC; me1 22:00 BP 147 / 73; Pulse 72; Resp 15; Pulse Ox 95% on 2 lpm NC; me1 23:00 BP 159 / 66; Pulse 54; Resp 19; Pulse Ox 94% on R/A; me1 07/07 00:01 BP 163 / 69; Pulse 66; Resp 16; Pulse Ox 94% ; me1 02:46 BP 125 / 64; Pulse 71; Resp 15 S; Pulse Ox 96% on R/A; lg3 07/06 21:10 Body Mass Index 39.87 (98.88 kg, 157.48 cm) or1 07/06 21:10 Pain Scale: Adult me1 21:47 Pain Scale: Adult me1 MDM: 07/06 21:06 Patient medically screened. [facility] 23:25 Differential diagnosis: hemorrhoids, fissure, abscess. Data reviewed: vital signs, [facility] nurses notes, EMS record, lab test result(s), EKG, radiologic studies, CT scan, plain films. Consideration of Admission/Observation Patient was admitted/placed on observation. Escalation of care including admission/observation considered. I considered the following discharge prescriptions or medication management in the emergency department Medications were administered in the Emergency Department. See MAR. Independent interpretation of the following test(s) in the Emergency Department CT Scan: My interpretation is ct abd pelvis. Test considered but Not performed: Ultrasound no abd usg. Care significantly affected by the following chronic conditions: Hypertension, Obesity, gerd, retina, hemorrhoids. 07/06 21:07 Order name: CBC with Diff; Complete Time: 21:43 [facility] 07/06 21:07 Order name: CMP; Complete Time: 22:37 [facility] 07/06 21:07 Order name: Lipase; Complete Time: 22:37 [facility] 07/06 21:07 Order name: Urinalysis w/ reflexes [facility] 07/07 04:04 Order name: Urine Culture [facility] 07/07 04:44 Order name: Urinalysis w/ reflexes [facility] 07/07 04:44 Order name: CBC with Automated Diff [facility] 07/07 04:44 Order name: CBC with Automated Diff [facility] 07/07 04:44 Order name: Comprehensive Metabolic Panel [facility] 07/07 04:44 Order name: Comprehensive Metabolic Panel [facility] 07/06 21:07 Order name: CT Abd/Pelvis - PO and IV Contrast [facility] 07/06 21:07 Order name: IV Saline Lock; Complete Time: 21:23 [facility] 07/06 21:07 Order name: Labs collected and sent; Complete Time: 21:23 [facility] 07/07 01:20 Order name: Deleon; Complete Time: 02:45 [facility] Administered Medications: 21:23 Drug: NS 0.9% IV 1000 ml IV at 1 bolus Per protocol; 1000 mL bolus Route: IV; Rate: 1 me1 bolus; Site: left antecubital; 07/07 00:08 Follow up: Response: No adverse reaction; IV Status: Completed infusion; IV Intake: me1 1000ml 07/06 21:23 Drug: Ondansetron IVP 4 mg IVP once; over 2 minutes Route: IVP; Site: left antecubital; me1 21:46 Follow up: Response: No adverse reaction; Nausea unchanged me1 21:23 Drug: morphine IVP or IV 4 mg IVP once over 4 mins Route: IVP; Infused Over: 4 mins; me1 Site: left antecubital; 21:47 Follow up: Pain 8/10 Adult; Response: No adverse reaction; Pain is decreased me1 21:46 Drug: HYDROmorphone IVP 1 mg IVP once Route: IVP; Site: left antecubital; me1 22:13 Follow up: Response: No adverse reaction; Pain is decreased me1 21:56 Drug: Ondansetron IVP 4 mg IVP once; over 2 minutes Route: IVP; Site: left antecubital; me1 22:13 Follow up: Response: No adverse reaction; Nausea is decreased me1 21:56 Drug: NS 0.9% IV 1000 ml IV at 1 bolus Per protocol; 1000 mL bolus Route: IV; Rate: 1 me1 bolus; Site: left antecubital; 07/07 02:47 Follow up: Response: No adverse reaction; IV Status: Completed infusion; IV Intake: lg3 1000ml 07/06 21:56 Drug: Diazepam PO 10 mg PO once Route: PO; me1 22:13 Follow up: Response: No adverse reaction; Anxiety decreased me1 22:15 Drug: Piperacillin-Tazobactam IVPB 3.375 grams IVPB once over 60 mins; (mix in NS 100 me1 mL) Route: IVPB; Infused Over: 60 mins; Site: left antecubital; 23:26 Follow up: Response: No adverse reaction; IV Status: Completed infusion; IV Intake: me1 100ml 07/07 00:35 Drug: HYDROmorphone IVP 1 mg IVP once Route: IVP; Site: left antecubital; lg3 02:46 Follow up: Response: No adverse reaction; Marked relief of symptoms lg3 02:45 Drug: levofloxacin IVPB 500 mg 100 ml IVPB once over 60 mins Volume: 100 ml; Route: lg3 IVPB; Infused Over: 60 mins; Site: left antecubital; 04:17 Follow up: Response: No adverse reaction; IV Status: Completed infusion; IV Intake: lg3 100ml 02:45 Drug: Diazepam IVP 5 mg IVP once Route: IVP; Site: left antecubital; lg3 05:11 Follow up: Response: No adverse reaction; Marked relief of symptoms; Anxiety decreased lg3 04:17 Drug: HYDROmorphone IVP 1 mg IVP once Route: IVP; Site: left antecubital; lg3 05:11 Follow up: Response: No adverse reaction; Marked relief of symptoms; Pain is decreased lg3 Disposition Summary: 07/07/24 01:29 Hospitalization Ordered Notes: Hospitalization Status: Inpatient Admission josemanuel Provider: Chris Reid cha Location: Telemetry/MedSurg (Inpatient) josemanuel Condition: Fair josemanuel Problem: new josemanuel Symptoms: have improved josemanuel Bed/Room Type: Standard [facility] Room Assignment: 420(07/07/24 04:29) Diagnosis - UTI/ Urinary tract infection, site not specified - intravesicular gas josemanuel - Abdominal tenderness - proctitisintractable pain josemanuel Forms: - Medication Reconciliation Form joseamnuel - SBAR form josemanuel - Leadership Thank You Letter [facility] Signatures: Dispatcher [employer] EDNY Marcelino Fitzgerald MD MD cha Garcia, Cindy, RN RN Fatoumata López RN RN lg3 Shelli Shannon RN RN me1 Corrections: (The following items were deleted from the chart) 04: 04:04 Urine Culture+[id number].LAB.BRZ ordered. [facility] 04:29 01:29 josemanuel cg
[2024-07-07] MEDS ORDERED: DIAZEPAM 10 MG/2 ML INJ SYRINGE ONE (02:00)
[2024-07-07 02:49] LABS: Specific Gravity 1.024 (1.005-1.030); Urine Bilirubin NEGATIVE (Negative); Urine Blood Negative (Negative); Urine Clarity Clear (Clear); Urine Color Light-Yellow (Yellow); Urine Glucose NEGATIVE (Negative); Urine Ketones TRACE (Negative); Urine Microscopic Reflex YN NO UMIC; Urine Nitrite NEGATIVE (Negative); Urine Protein NEGATIVE (Negative); Urine Urobilinogen Normal (Normal)
--- NOTE | 2024-07-07 04:29 | P.HP ---
Certification for Inpatient With expected LOS: >2 Midnights Practitioner: I am a practitioner with admitting privileges, knowledge of patient current condition, hospital course, and medical plan of care. Services: Services provided to patient in accordance with Admission requirements found in Title 42 Section 412.3 of the Code of Federal Regulations Patient History Date of Service: 07/07/24 Reason for admission: rectal pain History of Present Illness: 73-year-old female presents to the emergency room with complaints of rectal pain. She reports that she had recent hemorrhoidectomy. Symptoms started about 10 days ago and has had progressive discomfort. She denies any fevers or chills. Reports having some spotting of blood. She states that on May 25 she did have bariatric surgery. She does have history of hypertension. A CT scan of her abdomen pelvis was done that revealed concern for esophageal gastric mural thickening also concern for possible proctocolitis and nonspecific intravesical gas surgery was called in the ER and requested admission. Allergies Tetanus Vaccines and Toxoid [Tetanus] Allergy (Mild, Verified 07/07/24 05:59) Rash Sulfa (Sulfonamide Antibiotics) [Sulfa(Sulfonamide Antibiotics)] Allergy (Unknown, Verified 07/07/24 05:59) Shortness of breath Medipore tape Adverse Reaction (Uncoded 05/02/19 16:43) Itching/Hives/Rash Home Medications: Docusate [Colace Cap*] 100 mg PO DAILY 05/02/19 Melatonin 5 mg PO BEDTIME 05/02/19 Sertraline [Zoloft*] 50 mg PO DAILY 05/02/19 carvediloL [Coreg*] 25 mg PO DAILY 05/02/19 Amox/Clavulanate [Augmentin 875-125 Tab] 1 each PO BID 10 Days #20 tab 06/24/24 Pantoprazole [Protonix Tab*] 40 mg PO BID 06/24/24 metroNIDAZOLE [Flagyl] 500 mg PO Q8H 10 Days #30 tab 06/24/24 Polyethylene Glycol 3350 [Miralax] 17 gm PO DAILY PRN 07/07/24 - Past Medical/Surgical History Diabetic: No -: HTN -: claustrophobic -: Cholecystectomy -: Hysterectomy -: L knee repair -: Appendectomy -: R ankle repair -: sinus surg. Psychosocial/ Personal History: Patient lives at home with her . - Family History Father -: Heart disease, Cancer Notes: from colon cancer - Social History Alcohol use: Yes CD- Drugs: No Caffeine use: Yes Review of Systems 10-point ROS is otherwise unremarkable Gastrointestinal: Nausea, As per HPI Physical Examination - Physical Exam General: Alert, Oriented x3 HEENT: Atraumatic, Normocephalic Neck: Supple Respiratory: Clear to auscultation bilaterally, Normal air movement Cardiovascular: Regular rate/rhythm, Normal S1 S2 Gastrointestinal: Normal bowel sounds, Non-distended Musculoskeletal: Other Neurological: Normal speech - Studies Laboratory Data (last 24 hrs) 07/06/24 07/06/24 21:19 21:19 WBC 6.00 Hgb 13.1 Hct 39.2 Plt Count 166 Sodium 140 Potassium 3.7 BUN 8 Creatinine 0.62 Glucose 115 H Total Bilirubin 0.6 AST 115 H ALT 89 H Alkaline Phosphatase 116 Lipase 18 Assessment and Plan - Problems (Diagnosis) (1) Proctitis Current Visit: No Status: Acute (2) S/P hemorrhoidectomy Current Visit: No Status: Acute (3) Hypertension Current Visit: No Status: Chronic Qualifiers: - Plan 73-year-old female presents with 10-day history of progressive rectal pain. Status post hemorrhoidectomy. Rectal pain Status post hemorrhoidectomy proctititis History of hypertension History of gastric bypass Plan: Admit to [facility] Continue IV antibiotics Zosyn Surgical consultation As needed analgesics Restart home medications once medication reconciliation completed DVT: SCD Code: Full - Advance Directives Does patient have a Living Will: No Does patient have a Durable POA for Healthcare: No
[2024-07-07] MEDS ORDERED: ACETAMINOPHEN 325 MG TABLET PO PRN (04:33)
[2024-07-07] MEDS: NA CHLORIDE 0.9% 1,000 ML IV SCH (06:23)
[2024-07-07 07:49] VITALS: BMI 39.9
[2024-07-07] MEDS: PIPER TAZO 3.375 GM in NA CHLORIDE 0.9% 100 ML IV SCH (08:09)
[2024-07-07] MEDS: MORPHINE 2 MG/ML SYR IV PRN (08:14)
[2024-07-07] MEDS: HYDROMORPHONE HCL 2 MG/ML inj IV ONE (13:07)
--- NOTE | 2024-07-07 15:47 | RAD REPORT ---
EXAM DESCRIPTION: CT ABDOMEN AND PELVIS WITH CONTRAST DATE: 07/06/2024 9:07 PM CDT CLINICAL HISTORY: 73-year-old female with abdominal pain. COMPARISON: CT of the abdomen and pelvis 03/02/2024 TECHNIQUE: Volumetric CT of the abdomen and pelvis acquired following the intravenous administration of contrast. Axial, coronal and sagittal images are provided. The study was performed using dose red uction techniques including automated exposure control and/or adjustment of the MA and/or KV accordin g to patient size, and/or iterative reconstruction techniques. Total DLP 1729.8. FINDINGS: [facility]/Lines, tubes and hardware: Post cholecystectomy clips within gallbladder fossa. Lower thorax: Mild bibasilar subsegmental atelectasis and/or scarring. No consolidation or pleural ef fusion. Liver: No hepatic lesion. Biliary tree: No intra- or extrahepatic bile duct dilation. Gallbladder: Status post cholecystectomy.. Pancreas: No pancreatic lesion. Spleen: No splenic lesion. Adrenals: No right adrenal gland lesion. Redemonstrated 11 mm left renal lateral limb nodule, incompl etely characterized on the current study. Kidneys and ureters: No renal lesion, nephrolithiasis, or hydronephrosis. Bladder/reproductive organs: Redemonstrated nonspecific nondependent intravesical gas, which can be s een with prior urologic intervention, including Deleon catheter insertion, cystitis, and other etiolog ies. Status post hysterectomy. Gastrointestinal tract: Lower esophagus/stomach/small bowel: Enterogastric anastomotic sutures, which can be seen with prior bariatric surgery and other etiologies. Small hiatal hernia. Nonspecific distal esophageal circumfere ntial mural thickening extending to the esophagogastric junction, which can be seen with esophagogast ritis and/or inadequate distention. Contrast within the distal esophagus can be seen with reflux. Ora l contrast is reaching level of the descending colon Colon: Redemonstrated nonspecific anal canal and inferior rectal mural thickening. Direct visualizati on suggested to exclude neoplasm. Proctitis is in the differential diagnosis. Appendix: Not visualized. No pericecal inflammation. Peritoneum, mesentery and retroperitoneum: No free air, ascites or loculated fluid. Lymph nodes: No pathologic adenopathy based on size criteria. Vasculature: Aorta and branches: Atherosclerotic mild vascular calcifications. Aorta has a normal diameter. Veins: Subcentimeter calcified pelvic phleboliths. Bones: Degenerative changes, including mild to moderate multilevel spondylosis. Bilateral hip osteoar throsis. Soft tissues: Tiny umbilical hernia containing adipose tissue. Peripheral aspect of the soft tissues extends off the imaged field of view. IMPRESSION: 1. Small hiatal hernia, with contrast within the distal esophagus which can be seen wi th reflux. Esophagogastric mural thickening which can be seen with inadequate distention and/or esoph agogastritis. Enterogastric anastomotic sutures. 2. Redemonstrated nonspecific intervertebral canals inferior rectal mural thickening. Differential diagnosis would include proctitis and/or neoplasm. Direct visualization suggested. 3. Redemonstrated nonspecific nondependent intravesical gas, which can be seen with prior urologic intervention, including Deleon catheter insertion, cystitis, and other etiologies. Please clinically c orrelate. 4. Status post cholecystectomy. 5. Additional incidental findings as discussed. Electronically signed by: Harrison Booker MD 07/07/2024 01:04 AM CDT RP Due to temporary technical issues with the PACS/Fluency reporting system, reports are being signed by the in house radiologist without review as a courtesy to ensure prompt reporting. The interpreting r adiologist is fully responsible for the content of the report.
--- NOTE | 2024-07-07 18:33 | CON ---
Date of Consultation: 07/07/2024 Reason For Consultation: Rectal pain status post hemorrhoid surgery. History Of Present Illness: The patient is a 73-year-old white female with history of hypertension, gastric bypass surgery in May of 2024, hemorrhoidectomy on June 24, 2024. The patient reports hem orrhoid pain, improved post hemorrhoidectomy. Then the pain came back and is much worse now, she say s the pain is 10/10 and she came and wants some relief. Denies any fevers, chills, night sweats, melena, hematochezia, coffee-ground emesis, constipation, diarrhea, change in weight, change in bowel habits. Past Medical History: Significant for hypertension, gastric bypass in May of 2024, and hemorrhoidec leonid on June 24, 2014. Claustrophobia. Medications: Include Colace, melatonin, Zoloft, Coreg, Augmentin, Protonix, Flagyl, and MiraLAX. Allergies: TO TETANUS VACCINE, SULFA. Past Surgical History: Cholecystectomy, hysterectomy, left knee repair, appendectomy, right knee rep air, sinus surgery. Social History: The patient lives at home with . , 4 children. No tobacco. No alcoh ol. Family History: Father of colon cancer. Mother of respiratory disorder of unknown etiolog y in the hospital here. Review of Systems: The patient has rectal pain. She denies any melena, hematochezia, melena, coffee-ground emesis, derick turia, dysuria, polydipsia, seizure, syncope, depression, anxiety. She does note in the e mergency room a Deleon catheter was placed. Physical Examination: Vital Signs: She is 5 feet 2 inches, 228 pounds. BMI of 39.8 kg/sq m. Temperature 97.2 degrees Fah renheit, pulse is 90, respirations 16, blood pressure 110/72, O2 saturation 91% to 94% on room air. General: She is an obese female, lying in bed, in [id number] distress due to rectal pain, she states. HEENT: Normocephalic, atraumatic. Pupils equal, round, and reactive to light. Anicteric. Orophary nx clear. Neck: Supple. No masses. Respirations: Clear to auscultation bilaterally. Cardiac: Regular rate and rhythm. No gallops or rubs. Abdomen: Positive bowel sounds. Soft, nondistended, nontender, obese. Extremities: No clubbing, cyanosis, or edema. 2+ pulses. Neuro: Alert and oriented x3. Grossly nonfocal. 5/5 motor strength. Sensation intact to light meño ch. Rectal: The patient has vastly normal perineal area with an extruding appearing hemorrhoid at the ri t side from 6 o'clock to 9 o'clock on the right side of the anus. Touching this the patient jumped off and said this is the extreme pain that she is having. Laboratory Data: The patient has a white count of 6.0, hemoglobin 13.1, hematocrit 39.2, MCV of 87, platelet count of 166, polys of 65%, lymphocytes 20%, monocytes 10%, and eosinophils 1%. The patient has sodium 140, potassium 3.7, chloride 106, bicarb 28, BUN 8, creatinine 0.6, glucose 115, calcium 9.6, total bilirubin 0.6, AST 115, ALT of 89, alkaline phosphatase 116, total protein 6.8, albumin 3. 2, lipase 18. Trace ketones, otherwise negative on urinalysis. A CT shows an area in the bladder an d Deleon placed in the emergency room. Also history of possible proctocolitis. Impression: 1.Rectal pain, status post remote surgery on June 24, 2024, with air noted on CT scan o f the patient in the emergency room and possible proctocolitis, status post hemorrhoidectomy. Could be infection or other. We will continue IV antibiotics. Await further surgical recommendations. 2.Also, the patient had colonoscopy in May of 2024, which revealed a colon polyp and hemorrhoids an d an EGD in May 2024 revealed hiatal hernia as per patient. 3.Gastroesophageal mural wall thickening noted on CT of abdomen and pelvis. We may consider EGD lala luation. 4.History of hypertension, gastric bypass May 2024 and hemorrhoidectomy on June 24, 2024. Recommendations: 1.Continue IV fluids, IV antibiotics. 2.Continue p.r.n. pain medicine. 3.Await surgical evaluation therapy and it appears to be postop issues, complications, status post A ugust 2023, hemorrhoid surgery. 4.Consider outpatient EGD. BALTA/YEISON Voice ID: [id number] Report ID: [id number]
--- NOTE | 2024-07-08 06:56 | P.PN ---
Subjective Date of Service: 07/08/24 Chief Complaint: rectal pain Subjective: Improving (She notes great pain relief with Dilaudid instead of Morphine. Probable recurrence of painful hemorrhoids - s/p hemorrhoid surgery on 06-24-24 versus other.) Review of Systems 10-point ROS is otherwise unremarkable Gastrointestinal: Other (severe rectal pain) Physical Examination - Vital Signs Temperature: 97.6 F Blood Pressure: 149/68 Pulse: 65 Respirations: 18 Pulse Ox (%): 97 - Physical Exam General: Alert, In no apparent distress, Mild distress (from rectal pain ) HEENT: Atraumatic, Normocephalic, PERRLA, EOMI Neck: Supple Respiratory: Normal air movement Cardiovascular: Normal pulses Gastrointestinal: Soft and benign, No tenderness, No rebound, No guarding, Other (perianal - painful inflamed hemorrhoid versus other ) Neurological: Normal speech, Normal strength at 5/5 x4 extr Assessment And Plan - Current Problems (Diagnosis) (1) Rectal pain Current Visit: Yes Status: Acute (2) Hemorrhoid prolapse Current Visit: Yes Status: Acute (3) Abnormal abdominal CT scan Current Visit: Yes Status: Acute (4) Abnormal CT scan, pelvis Current Visit: Yes Status: Acute (5) Proctitis Current Visit: No Status: Acute - Plan REC: 1) surgery evaluation / therapy for painful perianal / rectum, s/p surgery 2) continue prn pain medications, switch to Dilaudid 3) continue IVFs and IV antibiotics
[2024-07-08 07:31] LABS: Absolute Eosinophils 0.2 K/uL (0-0.5); Absolute Lymphocytes (CBC) 1.2 K/uL (0.7-4.9); Absolute Monocytes 0.6 K/uL (0.1-1.3); Absolute Neutrophil 2.9 K/uL (1.8-8.0); Basophils % 0.5 % (0-1.3); Eosinophils % 3.5 % (0-4.4); Hematocrit 36.1 % (36.0-45.0); Hemoglobin 11.7 g/dL (12.0-15.0); Lymphocytes % 25.4 % (15.3-44.8); MCH 28.7 pg (27.0-35.0); MCHC 32.4 g/dL (32.0-36.0); MCV 88.6 fL (80-100); MPV 9.5 fL (7.6-11.3); Neutrophils % 58.6 % (41.7-73.7); Nucleated Red Blood Cells % 0.2 % (0-0); Platelets 120 thou/uL (152-406); RBC Red Blood Cell Count 4.07 M/uL (3.86-4.86)
[2024-07-08 07:49] LABS: Albumin 2.7 g/dL (3.4-5.0); Albumin/Globulin Ratio 0.8 (1.1-1.8); Anion Gap 8.5 mEq/L (5.0-15.0); Bilirubin Total 0.6 mg/dL (0.2-1.0); Globulin 3.2 g/dL (2.3-3.5); Potassium 3.5 mEq/L (3.5-5.1); Protein, Total 5.9 g/dL (6.4-8.2)
[2024-07-08] MEDS ORDERED: HYDROCORTISONE 2.5% RECT CR PR PRN (12:47)
[2024-07-08] MEDS: HYDROMORPHONE HCL 1 MG/ML INJ IV ONE (13:38)
[2024-07-08] MEDS: ENSURE MAX PROTEIN 330 ML LIQUID PO SCH (20:04)
[2024-07-09] MEDS: HYDRALAZINE HCL 20 MG/ML VIAL IV ONE (05:51)
--- NOTE | 2024-07-09 07:48 | P.PN ---
Date of Service: 07/08/24 subjective Reports moderate rectal pain, Review of Systems 10-point ROS is otherwise unremarkable Physical Examination - Vital Signs reviewed - Physical Exam General: Alert, In no apparent distress, Oriented x3 facial grimacing due to pain HEENT: Atraumatic, Normocephalic Neck: Supple, JVD not distended Respiratory: Clear to auscultation bilaterally, unlabored Cardiovascular: Regular rate/rhythm, Normal S1 S2 Capillary refill: <2 Seconds Gastrointestinal: rectal tenderness, Soft and benign, Non-distended, W/out hepatosplenomegaly, perirectal tenderness status post hemorrhoidectomy Musculoskeletal: No clubbing, No swelling Integumentary: No rashes, No significant lesion Neurological: Normal speech, Normal strength at 5/5 x4 extr, Cranial nerves 3-12 intact, Normal reflexes 2+ Assessment and Plan - Plan Intractable rectal pain History proctitis s/p Hemorrhoidectomy Pain control IV antibiotics, steroids Surgical consult possible incision and drainage if needed 06/25 Increased IV and p.o. analgesics, Diet advance to full liquid Reports moderate pain, repeat 06/26 CT of the abdomen no acute finding ordered for intractable pain STI labs ordered, HSV, RPR, HIV, to try to find cause of proctitis, External-perirectal tenderness status post external hemorrhoidectomy Acute urinary retention Deleon placed, Ditropan ordered will start Flomax after DC from UA ordered, urine culture, labs ordered to evaluate because of proctitis Deleon discontinued and Deleon replaced for urinary retention, antispasmodic ordered Hypertension Continue home medications Titrate as needed GERD Continue PPI GI/DVT prophylaxis Lovenox Advanced directive full code Discharge Plan: Home Plan to discharge in: 48 Hours - Advance Directives Does patient have a Living Will: No Does patient have a Durable POA for Healthcare: No - Code Status/Comfort Care Code Status: Full Code Time Spent Managing Pts Care (In Minutes): 35 <Jennifer Young - Last Filed: 07/11/24 08:46> Chart has been reviewed. Events of the last 24 hours have been noted. Case discussed with BING. I performed a substantial part of the MDM during this patient's care today. I personally made or approved the documented management plan and acknowledge its risk of complications. I agree with the findings and documentation provided in the BING's notes Continue with antibiotic therapy. Continue with lidocaine or nitro ointment for pain. <Jolie Moody - Last Filed: 07/16/24 01:39>
--- NOTE | 2024-07-09 07:51 | P.PN ---
Date of Service: 07/09/24 subjective Pain controlled with as needed analgesics, rectal cream Review of Systems 10-point ROS is otherwise unremarkable Physical Examination - Vital Signs reviewed - Physical Exam General: Alert, In no apparent distress, Oriented x3 HEENT: Atraumatic, Normocephalic Neck: Supple, JVD not distended Respiratory: Clear to auscultation bilaterally, unlabored Cardiovascular: Regular rate/rhythm, Normal S1 S2 Capillary refill: <2 Seconds Gastrointestinal: rectal tenderness, Soft and benign, , perirectal tenderness status post hemorrhoidectomy Musculoskeletal: No clubbing, No swelling Integumentary: No rashes, No significant lesion Neurological: Normal speech, Normal strength at 5/5 x4 extr, Cranial nerves 3-12 intact, Normal reflexes 2+ Assessment and Plan - Plan Intractable pain improved Proctitis Early rectal inflammation/abscess s/p Hemorrhoidectomy Pain control IV antibiotics, steroids Surgical consult 06/25 Increased IV and p.o. analgesics, Diet advance to full liquid Reports moderate pain, repeat 06/26 CT of the abdomen no acute finding ordered for intractable pain STI labs ordered, HSV, RPR, HIV, to try to find cause of proctitis, External-perirectal tenderness status post external hemorrhoidectomy HX Acute urinary retention Deleon placed, Ditropan ordered UA ordered, urine culture, labs ordered to evaluate because of proctitis Deleon discontinued and Deleon replaced for urinary retention, antispasmodic orde red Hypertension Continue home medications Titrate as needed GERD Continue PPI GI/DVT prophylaxis Lovenox Advanced directive full code Discharge Plan: Home Plan to discharge in: 48 Hours - Advance Directives Does patient have a Living Will: No Does patient have a Durable POA for Healthcare: No - Code Status/Comfort Care Code Status: Full Code Time Spent Managing Pts Care (In Minutes): 35 <Jennifer Young - Last Filed: 07/11/24 08:48> Chart has been reviewed. Events of the last 24 hours have been noted. Case di scussed with BING. I performed a substantial part of the MDM during this patient's care today. I personally made or approved the documented management plan and acknowledge its risk of complications. I agree with the findings and documentation provided in the BING's notes Continue with antibiotic therapy. Continue with lidocaine or nitro ointment for pain. <Jolie Moody - Last Filed: 07/16/24 01:40>
[2024-07-09] MEDS ORDERED: POLYETHYL GLY 3350 17 GM/DOSE PO PRN (09:12)
[2024-07-09] MEDS: HYDROCORTISONE 2.5% RECT CR PR PRN (10:51)
[2024-07-09] MEDS: LACTOBACILLUS/ACIDOPHILUS TAB PO SCH (11:14)
[2024-07-09] MEDS: carvediloL 25 MG TAB PO SCH (11:15)
[2024-07-09] MEDS: carvediloL 12.5 MG TAB PO SCH (17:26)
[2024-07-09] MEDS: ONDANSETRON 4 MG/2 ML VIAL IV PRN (17:26)
[2024-07-09] MEDS: MELATONIN 5 MG TABLET PO SCH (20:45)
[2024-07-09] MEDS: PANTOPRAZOLE 40MG TABLET PO SCH (20:45)
[2024-07-09] MEDS: PROMETHAZINE INJ 25 MG/ML AMP IV ONE (20:45)
[2024-07-09] MEDS: HYDROCODONE/APAP 7.5/325 MG TAB PO PRN (22:49)
[2024-07-10] MEDS: SERTRALINE HCL 50 MG TAB PO SCH (08:49)
[2024-07-10] MEDS ORDERED: carvediloL 25 MG TAB PO SCH (09:00)
--- NOTE | 2024-07-10 09:00 | P.PN ---
Date of Service: 07/10/24 subjective Reports moderate rectal pain, Review of Systems 10-point ROS is otherwise unremarkable Physical Examination - Vital Signs reviewed - Physical Exam General: Alert, In no apparent distress, Oriented x3 facial grimacing due to pain HEENT: Atraumatic, Normocephalic Neck: Supple, JVD not distended Respiratory: Clear to auscultation bilaterally, unlabored Cardiovascular: Regular rate/rhythm, Normal S1 S2 Capillary refill: <2 Seconds Gastrointestinal: rectal tenderness, Soft and benign, Non-distended, W/out hepatosplenomegaly, perirectal tenderness status post hemorrhoidectomy Musculoskeletal: No clubbing, No swelling Integumentary: No rashes, No significant lesion Neurological: Normal speech, Normal strength at 5/5 x4 extr, Cranial nerves 3-12 intact, Normal reflexes 2+ Assessment and Plan - Plan Intractable pain Proctitis Early rectal inflammation/abscess s/p Hemorrhoidectomy Pain control IV antibiotics, steroids Surgical consult possible incision and drainage if needed 06/25 Increased IV and p.o. analgesics, Diet advance to full liquid Reports moderate pain, repeat 06/26 CT of the abdomen no acute finding ordered for intractable pain STI labs ordered, HSV, RPR, HIV, to try to find cause of proctitis, External-perirectal tenderness status post external hemorrhoidectomy Acute urinary retention Deleon placed, Ditropan ordered UA ordered, urine culture, labs ordered to evaluate because of proctitis Deleon discontinued and Deleon replaced for urinary retention, antispasmodic ordered Hypertension Continue home medications Titrate as needed GERD Continue PPI GI/DVT prophylaxis Lovenox Advanced directive full code Discharge Plan: Home Plan to discharge in: 48 Hours - Advance Directives Does patient have a Living Will: No Does patient have a Durable POA for Healthcare: No - Code Status/Comfort Care Code Status: Full Code Time Spent Managing Pts Care (In Minutes): 35
[2024-07-10 09:23] VITALS: O2SAT 95
[2024-07-10 09:34] LABS: Absolute Eosinophils 0.2 K/uL (0-0.5); Absolute Lymphocytes (CBC) 1.1 K/uL (0.7-4.9); Absolute Monocytes 0.4 K/uL (0.1-1.3); Absolute Neutrophil 1.8 K/uL (1.8-8.0); Basophils % 0.7 % (0-1.3); Eosinophils % 4.3 % (0-4.4); Hematocrit 35.2 % (36.0-45.0); Hemoglobin 11.7 g/dL (12.0-15.0); Lymphocytes % 32.4 % (15.3-44.8); MCH 29.2 pg (27.0-35.0); MCHC 33.2 g/dL (32.0-36.0); MCV 87.9 fL (80-100); Monocytes % 11.4 % (3.3-12.3); Neutrophils % 51.2 % (41.7-73.7); Nucleated Red Blood Cells % 0.1 % (0-0); Platelets 147 thou/uL (152-406); RBC Red Blood Cell Count 4.01 M/uL (3.86-4.86); Red Cell Distribution Width 15.3 % (12.1-15.2)
[2024-07-10 09:49] LABS: Anion Gap 7.7 mEq/L (5.0-15.0); Potassium 3.7 mEq/L (3.5-5.1)
[2024-07-10] MEDS: TAMSULOSIN 0.4 MG SR CAP PO SCH (10:52)
[2024-07-10] MEDS: HYDRALAZINE HCL 20 MG/ML VIAL IV ONE (10:53)
[2024-07-10] MEDS ORDERED: BISACODYL E.C. 5 MG TAB PO PRN (11:20)
[2024-07-10] MEDS: AMLODIPINE 5 MG TAB PO SCH (12:03)
[2024-07-10 15:55] VITALS: BP 126/58; TEMP 97.8
[2024-07-10] MEDS: PANTOPRAZOLE 40MG TABLET PO SCH (16:12)
--- NOTE | 2024-07-11 08:46 | P.DS ---
Admission Date: 07/07/24 Discharge Date: 07/10/24 Reason for Admission: rectal pain Brief History of Present Illness: 73-year-old female presents to the emergency room with complaints of rectal pain. She reports that she had recent hemorrhoidectomy. Symptoms started about 10 days ago and has had progressive discomfort. She denies any fevers or chills. Reports having some spotting of blood. She states that on May 25 she did have bariatric surgery. She does have history of hypertension. A CT scan of her abdomen pelvis was done that revealed concern for esophageal gastric mural thickening also concern for possible proctocolitis and nonspecific intravesical gas surgery was called in the ER and requested admission - Physical Exam General: Alert, Oriented x3 HEENT: Atraumatic, Normocephalic Neck: Supple Respiratory: Clear to auscultation bilaterally, Normal air movement Cardiovascular: Regular rate/rhythm, Normal S1 S2 Gastrointestinal: Normal bowel sounds, Non-distended Musculoskeletal: Other Neurological: Normal speech Hospital Course: 73-year-old female presents to the emergency room with complaints of rectal pain. She reports that she had recent hemorrhoidectomy. Symptoms started about 10 days ago and has had progressive discomfort. Status post hemorrhoidectomy, pain is controlled, tolerating diet, patient needs to follow-up with surgery after discharge in 1 week Assessment Hemorrhoid status post hemorrhoidectomy Intractable rectal pain Plan to discharge home with ProctoCream Rectal pain, as needed analgesics, [place] 7.5 No driving or operating heavy equipment while on needed analgesics. A CT scan of her abdomen pelvis was done that revealed concern for esophageal gastric mural thickening also concern for possible proctocolitis and nonspecific intravesical gas Continue home medicines as previously prescribed GOAL: Clear understanding of disease process INSTRUCTIONS: Physician Discharge Instructions: - -Follow-up with PCP in 1 to 2 weeks -Please call Dr. Moody at [phone] if any questions regarding hospital stay -Please call nursing station at [phone] if any nursing or medication questions -Return to the emergency room if symptoms worsen Diet: ADA, low sodium Activity: Fall precautions <Jennifer Young - Last Filed: 07/11/24 08:41> Admission Date: 07/07/24 Discharge Date: 07/10/24 Hospital Course: Chart has been reviewed. Events of the last 24 hours have been noted. Case discussed with BING. I performed a substantial part of the MDM during this patient's care today. I personally made or approved the documented management plan and acknowledge its risk of complications. I agree with the findings and documentation provided in the BING's notes Continue with antibiotic therapy. Continue with lidocaine or nitro ointment for pain.Patient is stable for discharge home with outpatient follow-up with gastroenterology and general surgery. <Jolie Moody - Last Filed: 07/16/24 01:40> Disposition: ROUTINE DISCHARGE Discharge Condition: GOOD Vital Signs/Physical Exam: Temp Pulse Resp BP Pulse Ox 97.8 F 65 14 126/58 L 96 07/10/24 15:54 07/10/24 15:54 07/10/24 15:54 07/10/24 15:54 07/10/24 15:54 Laboratory Data at Discharge: WBC 3.50 thou/uL (4.3-10.9) L 07/10/24 09:27 Hgb 11.7 g/dL (12.0-15.0) L 07/10/24 09:27 Hct 35.2 % (36.0-45.0) L 07/10/24 09:27 Plt Count 147 thou/uL (152-406) L 07/10/24 09:27 Sodium 144 mEq/L (136-145) 07/10/24 09:27 Potassium 3.7 mEq/L (3.5-5.1) 07/10/24 09:27 BUN 3 mg/dL (7-18) L 07/10/24 09:27 Creatinine 0.35 mg/dL (0.55-1.02) L 07/10/24 09:27 Glucose 99 mg/dL (74-106) 07/10/24 09:27 Total Bilirubin 0.6 mg/dL (0.2-1.0) 07/08/24 07:18 AST 99 U/L (15-37) H 07/08/24 07:18 ALT 83 U/L (13-56) H 07/08/24 07:18 Alkaline Phosphatase 97 U/L (45-117) 07/08/24 07:18 Lipase 18 U/L (13-75) 07/06/24 21:19 <Jennifer Young - Last Filed: 07/11/24 08:41> Vital Signs/Physical Exam: Temp Pulse Resp BP Pulse Ox 97.8 F 65 14 126/58 L 96 07/10/24 15:54 07/10/24 15:54 07/10/24 15:54 07/10/24 15:54 07/10/24 15:54 Laboratory Data at Discharge: WBC 3.50 thou/uL (4.3-10.9) L 07/10/24 09:27 Hgb 11.7 g/dL (12.0-15.0) L 07/10/24 09:27 Hct 35.2 % (36.0-45.0) L 07/10/24 09:27 Plt Count 147 thou/uL (152-406) L 07/10/24 09:27 Sodium 144 mEq/L (136-145) 07/10/24 09:27 Potassium 3.7 mEq/L (3.5-5.1) 07/10/24 09:27 BUN 3 mg/dL (7-18) L 07/10/24 09:27 Creatinine 0.35 mg/dL (0.55-1.02) L 07/10/24 09:27 Glucose 99 mg/dL (74-106) 07/10/24 09:27 Total Bilirubin 0.6 mg/dL (0.2-1.0) 07/08/24 07:18 AST 99 U/L (15-37) H 07/08/24 07:18 ALT 83 U/L (13-56) H 07/08/24 07:18 Alkaline Phosphatase 97 U/L (45-117) 07/08/24 07:18 Lipase 18 U/L (13-75) 07/06/24 21:19 <Jolie Moody - Last Filed: 07/16/24 01:40> Diet: Regular Activity: Fall precautions <Jennifer Young - Last Filed: 07/11/24 08:41> <Jolie Moody - Last Filed: 07/16/24 01:40> Home Medications: Docusate [Colace Cap*] 100 mg PO DAILY 05/02/19 Melatonin 5 mg PO BEDTIME 05/02/19 Sertraline [Zoloft*] 50 mg PO DAILY 05/02/19 carvediloL [Coreg*] 25 mg PO DAILY 05/02/19 Amox/Clavulanate [Augmentin 875-125 Tab] 1 each PO BID 10 Days #20 tab 06/24/24 Pantoprazole [Protonix Tab*] 40 mg PO BID 06/24/24 metroNIDAZOLE [Flagyl*] 500 mg PO Q8H 10 Days #30 tab 06/24/24 Polyethylene Glycol 3350 [Miralax] 17 gm PO DAILY PRN 07/07/24 Amlodipine [Norvasc*] 5 mg PO DAILY #30 tab 07/10/24 Hydrocodone 7.5/APAP 325 [[place] 7.5/325 mg*] 1 tab PO Q6H PRN #30 tab 07/10/24 Hydrocortisone [Procto-Med Hc] 28 gm TP DAILY #1 tube 07/10/24 Tamsulosin [Flomax*] 0.4 mg PO DAILY #30 cap 07/10/24 New Medications: Tamsulosin [Flomax*] 0.4 mg PO DAILY #30 cap Hydrocodone 7.5/APAP 325 [[place] 7.5/325 mg*] 1 tab PO Q6H PRN #30 tab PRN Reason: Pain Scale 5-7 (Moderate) Amlodipine [Norvasc*] 5 mg PO DAILY #30 tab Hydrocortisone [Procto-Med Hc] 28 gm TP DAILY #1 tube Physician Discharge Instructions: -DC IV and DC home -Follow-up with PCP in 1 to 2 weeks -Follow-up with gastroenterology and general surgery in 1 to 2 weeks -Please call Dr. Moody at [phone] if any questions regarding hospital stay -Please call nursing station at [phone] if any nursing or medication questions -Return to the emergency room if symptoms worsen Followup: Damon Reina MD [ACTIVE - CAN ADMIT] - Lashell Barrera NP [Primary Care Provider] -
== END 2024-07-10 19:14 | disposition home or self-care (01) | DRG 394 ==
LOC: ER 21:03 → 4TH 07-07 04:33
PROVIDERS: ADMIT Internal Medicine; ATTEND Hospitalist
DX: K62.89 Other specified diseases of anus and rectum (principal); K61.1 Rectal abscess; N39.0 Urinary tract infection, site not specified; I10 Essential (primary) hypertension; E66.9 Obesity, unspecified; K21.9 Gastro-esophageal reflux disease without esophagitis; R33.9 Retention of urine, unspecified; Z88.2 Allergy status to sulfonamides; Z88.7 Allergy status to serum and vaccine; Z98.84 Bariatric surgery status; Z68.39 Body mass index [BMI] 39.0-39.9, adult; Z79.02 Long term (current) use of antithrombotics/antiplatelets; Z90.49 Acquired absence of other specified parts of digestive tract; Z79.899 Other long term (current) drug therapy; Z90.710 Acquired absence of both cervix and uterus; Z91.048 Other nonmedicinal substance allergy status
CPT/HCPCS: 36415; 51702; 74177; 80048; 80053; 81003; 83690; 85025; 87045; 87046; 96361; 96365; 96366; 96367; 96375; 99285; J0360; J1170; J2270; J2405; J2543; J2550; J3360; J7030; Q9967